=== PATIENT | male | born 1935 | race Caucasian/White ===

== ENCOUNTER 2016-08-20 19:12 | Inpatient (IN) | payer MEDICARE, OTHER ==
--- NOTE | 2016-08-20 19:14 | ED Physician Chart ---
Chief Complaint/HPI - Patient Information Date Seen:: 08/20/16 Time Seen:: 19:14 Chief Complaint:: agitation History of Present Illness:: 81-year-old male history of bipolar disorder, brought in from care facility with acute, constant, severe, agitation 2 days. Associated aggressive behavior towards staff and other patients. History limited by patient's underlying bipolar disorder History provided by caregiver and transfer sheet Historian:: Other Review:: Nurse's Note Reviewed, Transfer documents Reviewed Review of Systems - Review of Systems Other: Complete system review otherwise unremarkable except as noted in history of present illness. Past Medical History - Past Medical History Past Medical History: HTN, DM, Other (bipolar disorder, gastroesophageal reflux disease, long-term use of insulin, dysphagia, type 2 diabetes mellitus without complications, unspecified dementia with behavioral disturbances, difficulty walking, adult failure to thrive, schizophrenia, CK D stage III, hypertension, COPD,) Family History: None Social History: Non Smoker, No Alcohol, No Drug Use, Care Facility Surgical History: None Psychiatricy History: Schizophrenia, Bipolar Medication: Reviewed Family Medical History - Family Member Mother History Unknown: Yes Physical Exam - Physical Examination Other:: INITIAL VITAL SIGNS: Reviewed by me GENERAL: Alert and interactive. No acute distress HEAD: Head is normocephalic and atraumatic EYES: EOMI. PERRL. No scleral icterus. No conjunctival injection ENT: Moist mucous membranes. NECK: Supple. No masses. Full range of motion RESPIRATORY: No tachypnea. Clear breath sounds bilaterally. No wheezing, rales, or rhonchi CV: Regular rate and rhythm. No murmurs, rubs, or gallops ABDOMEN: Soft, non-distended, non-tender. No guarding. No rebound. No masses. EXTREMITIES: No deformity. No cyanosis. No edema. SKIN: Warm and dry. No obvious rashes. There are some small excoriations on the patient's left face. NEUROLOGIC: Alert and oriented. Face is symmetric. Speech is normal. Moves all extremities equally. Motor and sensory distally intact. ED Septic Shock - . Is Septic Shock (SBP<90, OR Lactate>4 mmol\L) present?: No Reassessment (Disposition) - Reassessment Reassessment:: Urine positive for methamphetamine metabolites. Unknown how the patient may be receiving methamphetamine. However this will be investigated further by inpatient team. Patient is medically cleared for admission to the geriatric psych unit Reassessment Condition:: Unchanged - Diagnosis Diagnosis:: Acute psychosis, NOS Diabetes mellitus type 2, insulin-dependent Hypertension Schizophrenia Bipolar disorder - Patient Disposition Discharge/Transfer:: Acute Care w/in this hosp Admitted to:: [facility] Admitting Medical Physician:: Jomar Stevenson Admitting Psych Physician:: Ashkan Velasquez Time:: 20:33 Condition at Disposition:: Stable
[2016-08-20 19:45] LABS: % BASOPHILS 0.4 % (0.0-2.0); % EOSINOPHILS 4.2 % (0.0-5.0); % MONOCYTES 8.8 % (2.0-10.0); % NEUTROPHILS 59.6 % (40.0-80.0); HEMATOCRIT 29.1 % (39.0-49.0); HEMOGLOBIN 9.8 gm/dL (12.6-17.4); MEAN CORPUSCULAR HEMOGLOBIN 29.5 pg (27.0-31.0); MEAN CORPUSCULAR HGB CONC 33.5 pg (28.0-36.0); MEAN PLATELET VOLUME 8.7 fl; NEUTROPHILE ABSOLUTE 5.2 Th/cmm (1.8-8.0); PLATELET COUNT 260 Th/cmm (150-400); RED BLOOD COUNT 3.31 Mil/cmm (3.80-5.80); RED CELL DISTRIBUTION WIDTH 13.5 % (11.5-20.0); WHITE BLOOD COUNT 8.8 Th/cmm (4.8-10.8)
[2016-08-20 20:00] LABS: ALKALINE PHOSPHATASE 80 U/L (34-104); ANION GAP 4.9 (7.0-16.0); BILIRUBIN,TOTAL 0.2 mg/dL (0.3-1.0); BUN - UREA NITROGEN 32 mg/dL (7-25); BUN/CREATININE RATIO 17.8; CALCIUM SERUM 8.7 mg/dL (8.6-10.3); CARBON DIOXIDE 26.5 mEq/L (21.0-31.0); CHLORIDE 101 mEq/L (98-107); CHOLESTEROL 108 mg/dL (<200); CREATININE - SERUM 1.8 mg/dL (0.7-1.3); GLUCOSE 267 mg/dL (70-105); POTASSIUM SERUM 4.4 mEq/L (3.5-5.1); SGOT 14 U/L (13-39); SGPT/ALT 11 U/L (7-52); SODIUM SERUM 128 mEq/L (136-145); TRIGLYCERIDES 139 mg/dL (<150)
[2016-08-20 20:05] LABS: ACETAMINOPHEN < 10.0 ug/mL (10.0-30.0)
[2016-08-20 20:19] LABS: URINE BILIRUBIN NEGATIVE (NEGATIVE); URINE BLOOD NEGATIVE (NEGATIVE); URINE COLOR YELLOW; URINE GLUCOSE (UA) NEGATIVE (NEGATIVE); URINE KETONE TRACE mg/dL (NEGATIVE); URINE PH 5.5; URINE PROTEIN 100 mg/dL (NEGATIVE); URINE RBC 0-1 /hpf (0-5); URINE UROBILINOGEN 0.2 E.U./dL (0.2 - 1.0)
[2016-08-20 20:20] LABS: URINE BACTERIA FEW /hpf (NONE SEEN); URINE EPITHELIAL CELLS FEW /lpf (FEW)
[2016-08-20 20:23] LABS: AMPHETAMINE URINE NEGATIVE (NEGATIVE); BARBITURATES URINE NEGATIVE (NEGATIVE); METHADONE URINE NEGATIVE (NEGATIVE)
[2016-08-20 21:20] VITALS: BP 114/63
[2016-08-21] MEDS ORDERED: Albuterol/Ipratropium Neb 3 ML AERS HHN PRN (00:15)
[2016-08-21] MEDS ORDERED: Magnesium Hydroxide (MOM) 30 mL UDC PO PRN (00:15)
[2016-08-21] MEDS: INSULIN ASPART SLIDING SCALE 100 UNITS/ML UNIT SUBQ SCH ×4 (06:38→20:49)
[2016-08-21] MEDS ORDERED: Non-Formulary Item 1 EA (Cranberry Fruit Concentrate [Cranberry] 450 MG) PO SCH (09:00)
[2016-08-21] MEDS ORDERED: Non-Formulary Item 1 EA (Lurasidone Hcl [Latuda] 40 MG) PO SCH (09:00)
[2016-08-21] MEDS ORDERED: Non-Formulary Item 1 EA (Albuterol Sulfate [Proair Respiclick] 90 MCG) IH SCH (09:00)
[2016-08-21] MEDS: Lactulose 10 Gm/15 mL 30mL UDC PO SCH ×2 (10:11→17:14)
[2016-08-21] MEDS: Dextromethorphan/Quinidine 20mg/10mg Cap PO SCH ×2 (10:12→17:14)
[2016-08-21] MEDS: Ferrous Sulfate 325 MG TAB PO SCH (10:12)
[2016-08-21] MEDS: Vitamin B Complex w/Vitamin C Tab PO SCH (10:12)
--- NOTE | 2016-08-21 15:46 | History and Physical ---
History of Present Illness - HPI Chief Complaint: agitation HPI: THIS IS A 81 YEAR OLD MALE RESIDENT OF [facility]. PATIENT IS ADMITTED TO THE GEROPSYCH UNIT FOR INCREASE IN AGITATION AND AGRESSIVE BEHAVIOR TOWARDS STAFF. Vital Signs: Last Vital Signs Temp 98 F 08/21/16 06:58 Pulse 66 08/21/16 08:22 Resp 18 08/21/16 07:44 BP 123/58 08/21/16 08:22 Pulse Ox 98 08/21/16 07:44 Past Medical History Cardiovascular: Report: HTN (COPD, ADULT FAILURE TO THRIVE, HTN, DM-2, DYSPHAGIA , UNSTEADY GAIT) Family Medical History - Family Member Mother History Unknown: Yes Ethnicity: Living Status: Hx Family Cancer: No Hx Family Coronary Artery Disease: No Hx Family Congestive Heart Failure: No Hx Family Hypertension: No Hx Family Stroke: No Hx Family Diabetes: Yes Hx Family Seizures: No Hx Family Dementia: No Hx Family AIDS: No Hx Family HIV: No Hx Family COPD: No Hx Family Hepatitis: No Hx Family Psychiatric Problems: No Hx Family Tuberculosis: No Social History Smoke: No Alcohol: None Drugs: None Lives: [facility] Home [facility] Maintenance Health Maintenance: Influenza Vaccine - Medications Home Medications: Home Medication Medication Instructions Recorded Type Acetaminophen [Tylenol] 650 mg PO Q4HR PRN 08/20/16 History Albuterol Sulfate [Proair 90 mcg IH BID 08/20/16 History Respiclick] Aspirin EC [Ecotrin] 81 mg PO DAILY 08/20/16 History Bisacodyl [Fleet Bisacodyl] 10 mg PO DAILY PRN 08/20/16 History Cholecalciferol (Vitamin D3) 1,000 iu PO DAILY 08/20/16 History [Vitamin D3] Cranberry Fruit Concentrate 450 mg PO DAILY 08/20/16 History [Cranberry] Dextromethorphan/Quinidine 1 cap PO BID 08/20/16 History [Nuedexta 20mg-10mg] Divalproex ER [Depakote ER] 500 mg PO DAILY 08/20/16 History Donepezil HCl [Aricept] 10 mg PO HS 08/20/16 History Famotidine 20 mg PO BID 08/20/16 History Fenofibrate Nanocrystallized 145 mg PO HS 08/20/16 History [Tricor] Ferrous Sulfate [Iron] 325 mg PO DAILY 08/20/16 History Folic Acid/Vit Bcomp,C 1 tab PO DAILY 08/20/16 History [Nephro-Neeraj Vitamin B and C Complex] Insulin Glargine, Recombinan 15 units SUBQ HS 08/20/16 History [Lantus] Ipratropium/Albuterol Sulfate 3 ml IH Q4HR PRN 08/20/16 History [Iprat-Albut 0.5-3(2.5) mg/3 ml] Lactulose [Cephulac] 30 ml PO BID 08/20/16 History Linagliptin [Tradjenta] 5 mg PO DAILY 08/20/16 History Lurasidone HCl [Latuda] 40 mg PO DAILY 08/20/16 History Magnesium Hydroxide [Milk of 30 ml PO HS PRN 08/20/16 History Magnesia] Melatonin 3 mg PO HS 08/20/16 History Memantine [Namenda] 10 mg PO BID 08/20/16 History Metoprolol Tartrate 50 mg PO DAILY 08/20/16 History amLODIPine Besylate [Norvasc*] 10 mg PO DAILY 08/20/16 History - Allergies Allergies/Adverse Reactions: Allergies Allergy/AdvReac Type Severity Reaction Status Date / Time rivaroxaban [From Xarelto] Allergy Verified 08/20/16 19:27 Review of Systems - Review of Systems Constitutional: Denies: No Significant, Fever Eyes: Report: No Significant ENT: Report: No Significant Respiratory: Denies: No Significant, Cough, Dry, Shortness of Breath Cardiovascular: Denies: Chest Pain, Palpitations Gastrointestinal: Denies: Nausea, Vomiting, Abdominal Pain, Diarrhea, Constipation Neurological: Report: Weakness Physical Exam - Physical Exam HEENT: Report: Ears Nose Throat within normal limits Neck: Report: Within normal limits Cardiovascular Systems: Report: +s1/s2 noted, Regular, Rate and Rhythm, no murmurs noted Respiratory: Report: Breath Sounds are within normal limits Abdomen: Report: Non-tender to palpation Back: Report: Inspection of back is within normal limits. Extremities: Report: Non-tender to palpation. Skin: Report: Warm Neuro/Psych: Report: A+Ox3, No new focal deficits, Weakness or sensory loss noted. - Lab Results All Lab Results last 24 hours: Laboratory Last Values WBC 8.8 Th/cmm (4.8-10.8) 08/20/16 19:36 RBC 3.31 Mil/cmm (3.80-5.80) L 08/20/16 19:36 Hgb 9.8 gm/dL (12.6-17.4) L 08/20/16 19:36 Hct 29.1 % (39.0-49.0) L 08/20/16 19:36 MCV 88.0 fl (80-99) 08/20/16 19:36 MCH 29.5 pg (27.0-31.0) 08/20/16 19:36 MCHC Differential 33.5 pg (28.0-36.0) 08/20/16 19:36 RDW 13.5 % (11.5-20.0) 08/20/16 19:36 Plt Count 260 Th/cmm (150-400) 08/20/16 19:36 MPV 8.7 fl 08/20/16 19:36 Neutrophils % 59.6 % (40.0-80.0) 08/20/16 19:36 Lymphocytes % 27.0 % (20.0-50.0) 08/20/16 19:36 Monocytes % 8.8 % (2.0-10.0) 08/20/16 19:36 Eosinophils % 4.2 % (0.0-5.0) 08/20/16 19:36 Basophils % 0.4 % (0.0-2.0) 08/20/16 19:36 Sodium 128 mEq/L (136-145) L 08/20/16 19:36 Potassium 4.4 mEq/L (3.5-5.1) 08/20/16 19:36 Chloride 101 mEq/L (98-107) 08/20/16 19:36 Carbon Dioxide 26.5 mEq/L (21.0-31.0) 08/20/16 19:36 Anion Gap 4.9 (7.0-16.0) L 08/20/16 19:36 BUN 32 mg/dL (7-25) H 08/20/16 19:36 Creatinine 1.8 mg/dL (0.7-1.3) H 08/20/16 19:36 Est GFR ( Amer) TNP 08/20/16 19:36 Est GFR (Non-Af Amer) TNP 08/20/16 19:36 BUN/Creatinine Ratio 17.8 08/20/16 19:36 Glucose 267 mg/dL (70-105) H 08/20/16 19:36 POC Glucose 129 MG/DL (70 - 105) H 08/21/16 12:08 Hemoglobin A1c % 7.5 % (4.0-6.0) H 08/20/16 19:36 Calcium 8.7 mg/dL (8.6-10.3) 08/20/16 19:36 Total Bilirubin 0.2 mg/dL (0.3-1.0) L 08/20/16 19:36 AST 14 U/L (13-39) 08/20/16 19:36 ALT 11 U/L (7-52) 08/20/16 19:36 Alkaline Phosphatase 80 U/L (34-104) 08/20/16 19:36 Total Protein 6.7 gm/dL (6.0-8.3) 08/20/16 19:36 Albumin 3.4 gm/dL (4.2-5.5) L 08/20/16 19:36 Globulin 3.3 gm/dL 08/20/16 19:36 Albumin/Globulin Ratio 1.0 (1.0-1.8) 08/20/16 19:36 Triglycerides 139 mg/dL (<150) 08/20/16 19:36 Cholesterol 108 mg/dL (<200) 08/20/16 19:36 LDL Cholesterol Direct 64 mg/dL (75-193) L 08/20/16 19:36 HDL Cholesterol 37 mg/dL (23-92) 08/20/16 19:36 TSH 1.57 uIU/ml (0.34-5.60) 08/20/16 19:36 Urine Source CLEAN C 08/20/16 20:00 Urine Color YELLOW 08/20/16 20:00 Urine Clarity CLEAR (CLEAR) 08/20/16 20:00 Urine pH 5.5 08/20/16 20:00 Ur Specific [place] 1.025 (1.005-1.030) 08/20/16 20:00 Urine Protein 100 mg/dL (NEGATIVE) H 08/20/16 20:00 Urine Glucose (UA) NEGATIVE mg/dL (NEGATIVE) 08/20/16 20:00 Urine Ketones TRACE mg/dL (NEGATIVE) 08/20/16 20:00 Urine Blood NEGATIVE (NEGATIVE) 08/20/16 20:00 Urine Nitrate NEGATIVE (NEGATIVE) 08/20/16 20:00 Urine Bilirubin NEGATIVE (NEGATIVE) 08/20/16 20:00 Urine Urobilinogen 0.2 E.U./dL (0.2 - 1.0) 08/20/16 20:00 Ur Leukocyte Esterase NEGATIVE (NEGATIVE) 08/20/16 20:00 Urine RBC 0-1 /hpf (0-5) 08/20/16 20:00 Urine WBC 2-5 /hpf (0-5) H 08/20/16 20:00 Ur Epithelial Cells FEW /lpf (FEW) 08/20/16 20:00 Urine Bacteria FEW /hpf (NONE SEEN) 08/20/16 20:00 Salicylates < 25.0 mg/L (30.0-100.0) L 08/20/16 19:36 Urine Opiates Screen NEGATIVE (NEGATIVE) 08/20/16 20:00 Urine Methadone Screen NEGATIVE (NEGATIVE) 08/20/16 20:00 Acetaminophen < 10.0 ug/mL (10.0-30.0) L 08/20/16 19:36 Ur Barbiturates Screen NEGATIVE (NEGATIVE) 08/20/16 20:00 Ur Tricyclics Screen NEGATIVE (NEGATIVE) 08/20/16 20:00 Ur Phencyclidine Scrn NEGATIVE (NEGATIVE) 08/20/16 20:00 Amphetamines Screen NEGATIVE (NEGATIVE) 08/20/16 20:00 U Methamphetamines Scrn POSITIVE (NEGATIVE) H 08/20/16 20:00 U Benzodiazepines Scrn POSITIVE (NEGATIVE) H 08/20/16 20:00 U Cocaine Metab Screen NEGATIVE (NEGATIVE) 08/20/16 20:00 U Cannabinoids Screen NEGATIVE (NEGATIVE) 08/20/16 20:00 Ethyl Alcohol < 10 mg/dL (0-10) 08/20/16 19:36 RPR NONREACTIVE (NONREACTIVE) 08/20/16 19:36 Laboratory Results - last 24 hr 08/21/16 08/21/16 06:27 12:08 POC Glucose 201 H 129 H - Assessment Assessment: HTN DM-2 DYSPHAGIA 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 AGITATION DEMENTIA COPD - Plan Plan: MONITOR GLUCOSE FALL PRECAUTIONS MONITOR BP CONTINUE CURRENT PLAN OF CARE
[2016-08-21] MEDS: Insulin Detemir 100 units/mL 10mL Vial SUBQ SCH (20:51)
[2016-08-21] MEDS ORDERED: Non-Formulary Item 1 EA (Fenofibrate Nanocrystallized [Tricor] 145 MG) PO SCH (21:00)
[2016-08-21] MEDS ORDERED: Non-Formulary Item 1 EA (Melatonin [Melatonin] 3 MG) PO SCH (21:00)
[2016-08-22] MEDS: INSULIN ASPART SLIDING SCALE 100 UNITS/ML UNIT SUBQ SCH ×4 (06:34→20:50)
[2016-08-22] MEDS: Albuterol Nebulizer 2.5mg/3mL HHN SCH (08:30)
[2016-08-22] MEDS: Lactulose 10 Gm/15 mL 30mL UDC PO SCH ×2 (08:34→17:36)
[2016-08-22] MEDS: Dextromethorphan/Quinidine 20mg/10mg Cap PO SCH ×2 (08:35→16:08)
[2016-08-22] MEDS: Ferrous Sulfate 325 MG TAB PO SCH (08:35)
[2016-08-22] MEDS: Vitamin B Complex w/Vitamin C Tab PO SCH (08:35)
[2016-08-22] MEDS: Insulin Detemir 100 units/mL 10mL Vial SUBQ SCH (20:53)
[2016-08-22] MEDS: Fenofibrate, Micronized 134 mg Cap PO SCH (20:55)
[2016-08-23] MEDS: Albuterol Nebulizer 2.5mg/3mL HHN SCH ×3 (07:32→18:41)
[2016-08-23] MEDS: Vitamin B Complex w/Vitamin C Tab PO SCH (09:07)
[2016-08-23] MEDS: Ferrous Sulfate 325 MG TAB PO SCH (09:07)
[2016-08-23] MEDS: Dextromethorphan/Quinidine 20mg/10mg Cap PO SCH ×2 (09:07→16:30)
--- NOTE | 2016-08-23 14:50 | Internal Medicine Prog Note ---
Internal Medicine Subjective - Subjective Service Date: 08/23/16 Patient seen and examined:: with staff Patient is:: awake Per staff patient has:: no adverse event Internal Medicine Objective - Results Result Diagrams: 08/20/16 19:36 08/20/16 19:36 Recent Labs: Laboratory Last Values WBC 8.8 Th/cmm (4.8-10.8) 08/20/16 19:36 RBC 3.31 Mil/cmm (3.80-5.80) L 08/20/16 19:36 Hgb 9.8 gm/dL (12.6-17.4) L 08/20/16 19:36 Hct 29.1 % (39.0-49.0) L 08/20/16 19:36 MCV 88.0 fl (80-99) 08/20/16 19:36 MCH 29.5 pg (27.0-31.0) 08/20/16 19:36 MCHC Differential 33.5 pg (28.0-36.0) 08/20/16 19:36 RDW 13.5 % (11.5-20.0) 08/20/16 19:36 Plt Count 260 Th/cmm (150-400) 08/20/16 19:36 MPV 8.7 fl 08/20/16 19:36 Neutrophils % 59.6 % (40.0-80.0) 08/20/16 19:36 Lymphocytes % 27.0 % (20.0-50.0) 08/20/16 19:36 Monocytes % 8.8 % (2.0-10.0) 08/20/16 19:36 Eosinophils % 4.2 % (0.0-5.0) 08/20/16 19:36 Basophils % 0.4 % (0.0-2.0) 08/20/16 19:36 Sodium 128 mEq/L (136-145) L 08/20/16 19:36 Potassium 4.4 mEq/L (3.5-5.1) 08/20/16 19:36 Chloride 101 mEq/L (98-107) 08/20/16 19:36 Carbon Dioxide 26.5 mEq/L (21.0-31.0) 08/20/16 19:36 Anion Gap 4.9 (7.0-16.0) L 08/20/16 19:36 BUN 32 mg/dL (7-25) H 08/20/16 19:36 Creatinine 1.8 mg/dL (0.7-1.3) H 08/20/16 19:36 Est GFR ( Amer) TNP 08/20/16 19:36 Est GFR (Non-Af Amer) TNP 08/20/16 19:36 BUN/Creatinine Ratio 17.8 08/20/16 19:36 Glucose 267 mg/dL (70-105) H 08/20/16 19:36 POC Glucose 128 MG/DL (70 - 105) H 08/23/16 12:06 Hemoglobin A1c % 7.5 % (4.0-6.0) H 08/20/16 19:36 Calcium 8.7 mg/dL (8.6-10.3) 08/20/16 19:36 Total Bilirubin 0.2 mg/dL (0.3-1.0) L 08/20/16 19:36 AST 14 U/L (13-39) 08/20/16 19:36 ALT 11 U/L (7-52) 08/20/16 19:36 Alkaline Phosphatase 80 U/L (34-104) 08/20/16 19:36 Total Protein 6.7 gm/dL (6.0-8.3) 08/20/16 19:36 Albumin 3.4 gm/dL (4.2-5.5) L 08/20/16 19:36 Globulin 3.3 gm/dL 08/20/16 19:36 Albumin/Globulin Ratio 1.0 (1.0-1.8) 08/20/16 19:36 Triglycerides 139 mg/dL (<150) 08/20/16 19:36 Cholesterol 108 mg/dL (<200) 08/20/16 19:36 LDL Cholesterol Direct 64 mg/dL (75-193) L 08/20/16 19:36 HDL Cholesterol 37 mg/dL (23-92) 08/20/16 19:36 TSH 1.57 uIU/ml (0.34-5.60) 08/20/16 19:36 Urine Source CLEAN C 08/20/16 20:00 Urine Color YELLOW 08/20/16 20:00 Urine Clarity CLEAR (CLEAR) 08/20/16 20:00 Urine pH 5.5 08/20/16 20:00 Ur Specific [place] 1.025 (1.005-1.030) 08/20/16 20:00 Urine Protein 100 mg/dL (NEGATIVE) H 08/20/16 20:00 Urine Glucose (UA) NEGATIVE mg/dL (NEGATIVE) 08/20/16 20:00 Urine Ketones TRACE mg/dL (NEGATIVE) 08/20/16 20:00 Urine Blood NEGATIVE (NEGATIVE) 08/20/16 20:00 Urine Nitrate NEGATIVE (NEGATIVE) 08/20/16 20:00 Urine Bilirubin NEGATIVE (NEGATIVE) 08/20/16 20:00 Urine Urobilinogen 0.2 E.U./dL (0.2 - 1.0) 08/20/16 20:00 Ur Leukocyte Esterase NEGATIVE (NEGATIVE) 08/20/16 20:00 Urine RBC 0-1 /hpf (0-5) 08/20/16 20:00 Urine WBC 2-5 /hpf (0-5) H 08/20/16 20:00 Ur Epithelial Cells FEW /lpf (FEW) 08/20/16 20:00 Urine Bacteria FEW /hpf (NONE SEEN) 08/20/16 20:00 Salicylates < 25.0 mg/L (30.0-100.0) L 08/20/16 19:36 Urine Opiates Screen NEGATIVE (NEGATIVE) 08/20/16 20:00 Urine Methadone Screen NEGATIVE (NEGATIVE) 08/20/16 20:00 Acetaminophen < 10.0 ug/mL (10.0-30.0) L 08/20/16 19:36 Ur Barbiturates Screen NEGATIVE (NEGATIVE) 08/20/16 20:00 Ur Tricyclics Screen NEGATIVE (NEGATIVE) 08/20/16 20:00 Ur Phencyclidine Scrn NEGATIVE (NEGATIVE) 08/20/16 20:00 Amphetamines Screen NEGATIVE (NEGATIVE) 08/20/16 20:00 U Methamphetamines Scrn POSITIVE (NEGATIVE) H 08/20/16 20:00 U Benzodiazepines Scrn POSITIVE (NEGATIVE) H 08/20/16 20:00 U Cocaine Metab Screen NEGATIVE (NEGATIVE) 08/20/16 20:00 U Cannabinoids Screen NEGATIVE (NEGATIVE) 08/20/16 20:00 Ethyl Alcohol < 10 mg/dL (0-10) 08/20/16 19:36 RPR NONREACTIVE (NONREACTIVE) 08/20/16 19:36 - Physical Exam Vitals and I&O: Vital Signs Temp 98.2 F 08/23/16 06:00 Pulse 109 08/23/16 09:07 Resp 19 08/23/16 06:00 BP 149/65 08/23/16 09:07 Pulse Ox 96 08/23/16 06:00 Intake & Output 08/22/16 08/23/16 08/23/16 18:59 06:59 18:59 Intake Total 1000 120 Balance 1000 120 Intake: Oral 1000 120 Other: # Voids 4 2 # Bowel Movements 1 0 Active Medications: Current Medications Acetaminophen (Tylenol) 650 mg PO Q4HR PRN PRN Reason: MILD PAINAND TEMP >101F Stop: 10/20/16 00:14 Last Admin: 08/21/16 14:53 Dose: 650 mg Albuterol Sulfate (Albuterol 2.5mg/3ml Neb Ud) 2.5 mg HHN BID [facility] Stop: 10/21/16 08:59 Last Admin: 08/23/16 07:33 Dose: Not Given Albuterol/Ipratropium (Duoneb Neb) 3 ml HHN Q4HR PRN PRN Reason: Shortness of Breath or Wheeze Stop: 10/20/16 00:14 Amlodipine Besylate (Norvasc) 10 mg PO DAILY [facility] Stop: 10/20/16 08:59 Last Admin: 08/23/16 09:07 Dose: 10 mg Aspirin (Ecotrin) 81 mg PO DAILY [facility] Stop: 10/20/16 08:59 Last Admin: 08/23/16 09:07 Dose: 81 mg Bisacodyl (Dulcolax 5 Mg Ec Tab) 10 mg PO DAILY PRN PRN Reason: Constipation Stop: 10/20/16 00:14 Cholecalciferol (Vitamin D3) 1,000 iu PO DAILY [facility] Stop: 10/20/16 08:59 Last Admin: 08/23/16 09:07 Dose: 1,000 iu Dextromethorphan/Quinidine (Nuedexta 20mg-10mg) 1 cap PO BID [facility] Stop: 10/20/16 08:59 Last Admin: 08/23/16 09:07 Dose: 1 cap Divalproex Sodium (Depakote Sprinkle) 500 mg PO DAILY [facility] PRN Reason: Protocol Stop: 10/22/16 08:59 Last Admin: 08/23/16 09:07 Dose: 500 mg Donepezil HCl (Aricept) 10 mg PO HS [facility] Stop: 10/20/16 20:59 Last Admin: 08/22/16 20:55 Dose: 10 mg Famotidine (Pepcid) 20 mg PO BID [facility] Stop: 10/20/16 08:59 Last Admin: 08/23/16 09:07 Dose: 20 mg Fenofibrate (Tricor) 134 mg PO HS [facility] Stop: 10/21/16 20:59 Last Admin: 08/22/16 20:55 Dose: 134 mg Ferrous Sulfate (Iron) 325 mg PO DAILY [facility] Stop: 10/20/16 08:59 Last Admin: 08/23/16 09:07 Dose: 325 mg Insulin Aspart (Novolog Insulin Sliding Scale) 0 units SUBQ ACHS [facility] PRN Reason: Protocol Stop: 10/20/16 07:29 Last Admin: 08/22/16 20:50 Dose: 4 units Insulin Detemir (Levemir Insulin) 15 units SUBQ HS [facility] Stop: 10/20/16 20:59 Last Admin: 08/22/16 20:53 Dose: 15 units Lactulose (Cephulac) 20 gm PO BID [facility] Stop: 10/20/16 08:59 Last Admin: 08/22/16 17:36 Dose: Not Given Lorazepam (Ativan) 1 mg PO Q6HR PRN; Protocol PRN Reason: Anxiety Stop: 10/22/16 14:28 Magnesium Hydroxide (Milk Of Magnesia) 30 ml PO HS PRN PRN Reason: Constipation Stop: 10/20/16 00:14 Memantine (Namenda) 10 mg PO BID [facility] Stop: 10/20/16 08:59 Last Admin: 08/23/16 09:07 Dose: 10 mg Metoprolol Tartrate (Lopressor) 50 mg PO DAILY [facility] Stop: 10/20/16 08:59 Last Admin: 08/23/16 09:07 Dose: 50 mg Risperidone (Risperdal) 2 mg PO HS [facility] PRN Reason: Protocol Stop: 10/21/16 20:59 Risperidone (Risperdal) 1 mg PO DAILY [facility] PRN Reason: Protocol Stop: 10/23/16 08:59 Vitamin B Complex/Vit C/Folic Acid (Vitamin B Complex W/Vitamin C) 1 tab PO DAILY [facility] Stop: 10/20/16 08:59 Last Admin: 08/23/16 09:07 Dose: 1 tab Zolpidem Tartrate (Ambien) 5 mg PO HS PRN PRN Reason: Insomnia Stop: 10/19/16 21:21 Last Admin: 08/21/16 00:41 Dose: 5 mg General: alert HEENT: NC/AT, PERRLA Neck: Supple Lungs: CTAB Cardiovascular: RRR, Normal S1, Normal S2, without murmur Abdomen: soft, non-tender, non-distended Extremities: clear Neurological: no change Internal Medicine Assmt/Plan - Assessment Assessment: HTN DM-2 DYSPHAGIA 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 AGITATION DEMENTIA COPD - Plan Plan: MONITOR GLUCOSE FALL PRECAUTIONS MONITOR BP CONTINUE CURRENT PLAN OF CARE Nutritional Asmnt/Malnutr-PDOC - Dietary Evaluation Malnutrition Findings (Please click <Entered> for more info): Nutritional Asmnt/Malnutrition Start: 08/22/16 15: 48 Text: Status: Complete Freq: Document 08/22/16 15:48 GSUN (Rec: 08/22/16 15:59 GSUN [id number]) Nutritional Asmnt/Malnutrition Patient General Information Nutritional Screening High Risk Screening Diagnosis Reason for visit: psychosis NOS Pertinent Medical Hx/Surgical Hx HTN, COPD, adult FTT, HTN, DM2 , dysphagia, unsteady gait Subjective Information 81 year old male from SNF. Pt seen asleep in kyler chair in rec room, unable to be woken up. Per nursing staff, pt is confused. Spoke to FASTENER SEWING MACHINE OPERATOR in rec room, FASTENER SEWING MACHINE OPERATOR stated pt is asleep as pt has just recievd medications, otherwise pt noted with good appetite and no nutritional concerns at this time. Pt appeared nourisehd for age, no severe wasting noted. Avg PO intake 75-100% of meals since adm. 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 Current %PO Good (75-100%) Estimated Nutritional Goals BEE in Kcals: Using Current wt Calories/Kcals/Kg CBW 155lb/70.5kg Kcals Calculated 1763-2115kcal (25-30kcal/kg) Protein: Using Current wt Protein Calculated 71g (1g/kg) Fluid: ml 1763-2115ml (1ml/kcal) Nutritional Problem 1. Problem Problem Altered nutrition related laboratory values related to Etiology DM aeb Signs/Symptoms: A1c 7.5, glucose 267 on adm Intervention/Recommendation Comments 1. Recommend [id number] CHRIS. 2. Avg PO intake is adequate. Expected Outcomes/Goals Expected Outcomes/Goals 1. PO intake continue to meet at least 75% of estimated nutritional needs.
[2016-08-23] MEDS: INSULIN ASPART SLIDING SCALE 100 UNITS/ML UNIT SUBQ SCH ×3 (16:29→20:39)
[2016-08-23] MEDS: Lactulose 10 Gm/15 mL 30mL UDC PO SCH (16:30)
[2016-08-23] MEDS: Fenofibrate, Micronized 134 mg Cap PO SCH (20:19)
[2016-08-23] MEDS: Insulin Detemir 100 units/mL 10mL Vial SUBQ SCH (20:22)
[2016-08-24] MEDS: INSULIN ASPART SLIDING SCALE 100 UNITS/ML UNIT SUBQ SCH ×4 (07:30→21:18)
[2016-08-24] MEDS: Albuterol Nebulizer 2.5mg/3mL HHN SCH ×2 (08:10→20:29)
[2016-08-24] MEDS: Lactulose 10 Gm/15 mL 30mL UDC PO SCH ×2 (08:27→16:34)
[2016-08-24] MEDS: Ferrous Sulfate 325 MG TAB PO SCH (08:27)
[2016-08-24] MEDS: Dextromethorphan/Quinidine 20mg/10mg Cap PO SCH ×2 (08:27→16:34)
[2016-08-24] MEDS: Vitamin B Complex w/Vitamin C Tab PO SCH (08:28)
--- NOTE | 2016-08-24 12:52 | Internal Medicine Prog Note ---
Internal Medicine Subjective - Subjective Service Date: 08/24/16 Patient is:: awake Per staff patient has:: no adverse event Internal Medicine Objective - Results Result Diagrams: 08/20/16 19:36 08/20/16 19:36 Recent Labs: Laboratory Last Values WBC 8.8 Th/cmm (4.8-10.8) 08/20/16 19:36 RBC 3.31 Mil/cmm (3.80-5.80) L 08/20/16 19:36 Hgb 9.8 gm/dL (12.6-17.4) L 08/20/16 19:36 Hct 29.1 % (39.0-49.0) L 08/20/16 19:36 MCV 88.0 fl (80-99) 08/20/16 19:36 MCH 29.5 pg (27.0-31.0) 08/20/16 19:36 MCHC Differential 33.5 pg (28.0-36.0) 08/20/16 19:36 RDW 13.5 % (11.5-20.0) 08/20/16 19:36 Plt Count 260 Th/cmm (150-400) 08/20/16 19:36 MPV 8.7 fl 08/20/16 19:36 Neutrophils % 59.6 % (40.0-80.0) 08/20/16 19:36 Lymphocytes % 27.0 % (20.0-50.0) 08/20/16 19:36 Monocytes % 8.8 % (2.0-10.0) 08/20/16 19:36 Eosinophils % 4.2 % (0.0-5.0) 08/20/16 19:36 Basophils % 0.4 % (0.0-2.0) 08/20/16 19:36 Sodium 128 mEq/L (136-145) L 08/20/16 19:36 Potassium 4.4 mEq/L (3.5-5.1) 08/20/16 19:36 Chloride 101 mEq/L (98-107) 08/20/16 19:36 Carbon Dioxide 26.5 mEq/L (21.0-31.0) 08/20/16 19:36 Anion Gap 4.9 (7.0-16.0) L 08/20/16 19:36 BUN 32 mg/dL (7-25) H 08/20/16 19:36 Creatinine 1.8 mg/dL (0.7-1.3) H 08/20/16 19:36 Est GFR ( Amer) TNP 08/20/16 19:36 Est GFR (Non-Af Amer) TNP 08/20/16 19:36 BUN/Creatinine Ratio 17.8 08/20/16 19:36 Glucose 267 mg/dL (70-105) H 08/20/16 19:36 POC Glucose 75 MG/DL (70 - 105) 08/24/16 06:24 Hemoglobin A1c % 7.5 % (4.0-6.0) H 08/20/16 19:36 Calcium 8.7 mg/dL (8.6-10.3) 08/20/16 19:36 Total Bilirubin 0.2 mg/dL (0.3-1.0) L 08/20/16 19:36 AST 14 U/L (13-39) 08/20/16 19:36 ALT 11 U/L (7-52) 08/20/16 19:36 Alkaline Phosphatase 80 U/L (34-104) 08/20/16 19:36 Total Protein 6.7 gm/dL (6.0-8.3) 08/20/16 19:36 Albumin 3.4 gm/dL (4.2-5.5) L 08/20/16 19:36 Globulin 3.3 gm/dL 08/20/16 19:36 Albumin/Globulin Ratio 1.0 (1.0-1.8) 08/20/16 19:36 Triglycerides 139 mg/dL (<150) 08/20/16 19:36 Cholesterol 108 mg/dL (<200) 08/20/16 19:36 LDL Cholesterol Direct 64 mg/dL (75-193) L 08/20/16 19:36 HDL Cholesterol 37 mg/dL (23-92) 08/20/16 19:36 TSH 1.57 uIU/ml (0.34-5.60) 08/20/16 19:36 Urine Source CLEAN C 08/20/16 20:00 Urine Color YELLOW 08/20/16 20:00 Urine Clarity CLEAR (CLEAR) 08/20/16 20:00 Urine pH 5.5 08/20/16 20:00 Ur Specific [place] 1.025 (1.005-1.030) 08/20/16 20:00 Urine Protein 100 mg/dL (NEGATIVE) H 08/20/16 20:00 Urine Glucose (UA) NEGATIVE mg/dL (NEGATIVE) 08/20/16 20:00 Urine Ketones TRACE mg/dL (NEGATIVE) 08/20/16 20:00 Urine Blood NEGATIVE (NEGATIVE) 08/20/16 20:00 Urine Nitrate NEGATIVE (NEGATIVE) 08/20/16 20:00 Urine Bilirubin NEGATIVE (NEGATIVE) 08/20/16 20:00 Urine Urobilinogen 0.2 E.U./dL (0.2 - 1.0) 08/20/16 20:00 Ur Leukocyte Esterase NEGATIVE (NEGATIVE) 08/20/16 20:00 Urine RBC 0-1 /hpf (0-5) 08/20/16 20:00 Urine WBC 2-5 /hpf (0-5) H 08/20/16 20:00 Ur Epithelial Cells FEW /lpf (FEW) 08/20/16 20:00 Urine Bacteria FEW /hpf (NONE SEEN) 08/20/16 20:00 Salicylates < 25.0 mg/L (30.0-100.0) L 08/20/16 19:36 Urine Opiates Screen NEGATIVE (NEGATIVE) 08/20/16 20:00 Urine Methadone Screen NEGATIVE (NEGATIVE) 08/20/16 20:00 Acetaminophen < 10.0 ug/mL (10.0-30.0) L 08/20/16 19:36 Ur Barbiturates Screen NEGATIVE (NEGATIVE) 08/20/16 20:00 Ur Tricyclics Screen NEGATIVE (NEGATIVE) 08/20/16 20:00 Ur Phencyclidine Scrn NEGATIVE (NEGATIVE) 08/20/16 20:00 Amphetamines Screen NEGATIVE (NEGATIVE) 08/20/16 20:00 U Methamphetamines Scrn POSITIVE (NEGATIVE) H 08/20/16 20:00 U Benzodiazepines Scrn POSITIVE (NEGATIVE) H 08/20/16 20:00 U Cocaine Metab Screen NEGATIVE (NEGATIVE) 08/20/16 20:00 U Cannabinoids Screen NEGATIVE (NEGATIVE) 08/20/16 20:00 Ethyl Alcohol < 10 mg/dL (0-10) 08/20/16 19:36 RPR NONREACTIVE (NONREACTIVE) 08/20/16 19:36 - Physical Exam Vitals and I&O: Vital Signs Temp 98.0 F 08/24/16 05:53 Pulse 70 08/24/16 08:28 Resp 20 08/24/16 08:11 BP 153/85 08/24/16 08:28 Pulse Ox 100 08/24/16 08:11 Intake & Output 08/23/16 08/24/16 08/24/16 18:59 06:59 18:59 Intake Total 950 80 Balance 950 80 Intake: Oral 950 80 Other: # Voids 4 2 # Bowel Movements 1 0 Active Medications: Current Medications Acetaminophen (Tylenol) 650 mg PO Q4HR PRN PRN Reason: MILD PAINAND TEMP >101F Stop: 10/20/16 00:14 Last Admin: 08/21/16 14:53 Dose: 650 mg Albuterol Sulfate (Albuterol 2.5mg/3ml Neb Ud) 2.5 mg HHN BID [facility] Stop: 10/21/16 08:59 Last Admin: 08/24/16 08:10 Dose: 2.5 mg Albuterol/Ipratropium (Duoneb Neb) 3 ml HHN Q4HR PRN PRN Reason: Shortness of Breath or Wheeze Stop: 10/20/16 00:14 Amlodipine Besylate (Norvasc) 10 mg PO DAILY [facility] Stop: 10/20/16 08:59 Last Admin: 08/24/16 08:28 Dose: 10 mg Aspirin (Ecotrin) 81 mg PO DAILY [facility] Stop: 10/20/16 08:59 Last Admin: 08/24/16 08:27 Dose: 81 mg Bisacodyl (Dulcolax 5 Mg Ec Tab) 10 mg PO DAILY PRN PRN Reason: Constipation Stop: 10/20/16 00:14 Cholecalciferol (Vitamin D3) 1,000 iu PO DAILY [facility] Stop: 10/20/16 08:59 Last Admin: 08/24/16 08:27 Dose: 1,000 iu Dextromethorphan/Quinidine (Nuedexta 20mg-10mg) 1 cap PO BID [facility] Stop: 10/20/16 08:59 Last Admin: 08/24/16 08:27 Dose: 1 cap Divalproex Sodium (Depakote Sprinkle) 500 mg PO DAILY [facility] PRN Reason: Protocol Stop: 10/22/16 08:59 Last Admin: 08/24/16 08:27 Dose: 500 mg Donepezil HCl (Aricept) 10 mg PO HS [facility] Stop: 10/20/16 20:59 Last Admin: 08/23/16 20:19 Dose: 10 mg Famotidine (Pepcid) 20 mg PO BID [facility] Stop: 10/20/16 08:59 Last Admin: 08/24/16 08:28 Dose: 20 mg Fenofibrate (Tricor) 134 mg PO HS [facility] Stop: 10/21/16 20:59 Last Admin: 08/23/16 20:19 Dose: 134 mg Ferrous Sulfate (Iron) 325 mg PO DAILY [facility] Stop: 10/20/16 08:59 Last Admin: 08/24/16 08:27 Dose: 325 mg Insulin Aspart (Novolog Insulin Sliding Scale) 0 units SUBQ ACHS [facility] PRN Reason: Protocol Stop: 10/20/16 07:29 Last Admin: 08/24/16 11:26 Dose: Not Given Insulin Detemir (Levemir Insulin) 15 units SUBQ HS [facility] Stop: 10/20/16 20:59 Last Admin: 08/23/16 20:22 Dose: 15 units Lactulose (Cephulac) 20 gm PO BID [facility] Stop: 10/20/16 08:59 Last Admin: 08/24/16 08:27 Dose: 20 gm Lorazepam (Ativan) 1 mg PO Q6H PRN; Protocol PRN Reason: Anxiety Stop: 10/22/16 14:28 Last Admin: 08/23/16 18:00 Dose: 1 mg Magnesium Hydroxide (Milk Of Magnesia) 30 ml PO HS PRN PRN Reason: Constipation Stop: 10/20/16 00:14 Memantine (Namenda) 10 mg PO BID [facility] Stop: 10/20/16 08:59 Last Admin: 08/24/16 08:28 Dose: 10 mg Metoprolol Tartrate (Lopressor) 50 mg PO DAILY [facility] Stop: 10/20/16 08:59 Last Admin: 08/24/16 08:28 Dose: 50 mg Risperidone (Risperdal) 2 mg PO HS [facility] PRN Reason: Protocol Stop: 10/23/16 20:59 Risperidone (Risperdal) 1 mg PO DAILY [facility] PRN Reason: Protocol Stop: 10/23/16 08:59 Last Admin: 08/24/16 08:27 Dose: 1 mg Vitamin B Complex/Vit C/Folic Acid (Vitamin B Complex W/Vitamin C) 1 tab PO DAILY [facility] Stop: 10/20/16 08:59 Last Admin: 08/24/16 08:28 Dose: 1 tab Zolpidem Tartrate (Ambien) 5 mg PO HS PRN PRN Reason: Insomnia Stop: 10/19/16 21:21 Last Admin: 08/21/16 00:41 Dose: 5 mg General: alert HEENT: NC/AT, PERRLA Neck: Supple Lungs: CTAB Cardiovascular: RRR, Normal S1, Normal S2, without murmur Abdomen: soft, non-tender, non-distended Extremities: clear Neurological: no change Internal Medicine Assmt/Plan - Assessment Assessment: HTN DM-2 DYSPHAGIA 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 AGITATION DEMENTIA COPD - Plan Plan: MONITOR GLUCOSE FALL PRECAUTIONS MONITOR BP CONTINUE CURRENT PLAN OF CARE Nutritional Asmnt/Malnutr-PDOC - Dietary Evaluation Malnutrition Findings (Please click <Entered> for more info): Nutritional Asmnt/Malnutrition Start: 08/22/16 15: 48 Text: Status: Complete Freq: Document 08/22/16 15:48 GSUN (Rec: 08/22/16 15:59 GSUN [id number]) Nutritional Asmnt/Malnutrition Patient General Information Nutritional Screening High Risk Screening Diagnosis Reason for visit: psychosis NOS Pertinent Medical Hx/Surgical Hx HTN, COPD, adult FTT, HTN, DM2 , dysphagia, unsteady gait Subjective Information 81 year old male from SNF. Pt seen asleep in kyler chair in rec room, unable to be woken up. Per nursing staff, pt is confused. Spoke to ASSISTANT MEDIA BUYER in rec room, ASSISTANT MEDIA BUYER stated pt is asleep as pt has just recievd medications, otherwise pt noted with good appetite and no nutritional concerns at this time. Pt appeared nourisehd for age, no severe wasting noted. Avg PO intake 75-100% of meals since adm. Current Diet Order/ Nutrition Support [id number] Pertinent Medications Dulcolax, Vitamin D3, Iron, Novolog, Levemir, Cephulac, MOM, Vitamin B Complex W/ Vitamin C Pertinent Labs 08/20: BUN 32H, creatinine 1.8H , glucose 267H, A1c 7.5H POC glucose 103-201 since adm Nutritional Hx/Data Height 5 ft 6 in Height (Calculated Centimeters) 167.6 Current Weight (lbs) 155 lb Weight (Calculated Kilograms) 70.3 Weight (Calculated Grams) 57699.8 [place] Body Weight 142 Weight Status Approriate GI Symptoms Usual diet at home [facility] soft, CHRIS, CCHO Skin Integrity/Comment: Ronald Toribio. 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 Current %PO Good (75-100%) Estimated Nutritional Goals BEE in Kcals: Using Current wt Calories/Kcals/Kg CBW 155lb/70.5kg Kcals Calculated 1763-2115kcal (25-30kcal/kg) Protein: Using Current wt Protein Calculated 71g (1g/kg) Fluid: ml 1763-2115ml (1ml/kcal) Nutritional Problem 1. Problem Problem Altered nutrition related laboratory values related to Etiology DM aeb Signs/Symptoms: A1c 7.5, glucose 267 on adm Intervention/Recommendation Comments 1. Recommend [id number] CHRIS. 2. Avg PO intake is adequate. Expected Outcomes/Goals Expected Outcomes/Goals 1. PO intake continue to meet at least 75% of estimated nutritional needs.
[2016-08-24] MEDS: Insulin Detemir 100 units/mL 10mL Vial SUBQ SCH (21:19)
[2016-08-24] MEDS: Fenofibrate, Micronized 134 mg Cap PO SCH (21:21)
[2016-08-25] MEDS: INSULIN ASPART SLIDING SCALE 100 UNITS/ML UNIT SUBQ SCH ×4 (06:45→20:35)
[2016-08-25] MEDS: Vitamin B Complex w/Vitamin C Tab PO SCH (08:32)
[2016-08-25] MEDS: Lactulose 10 Gm/15 mL 30mL UDC PO SCH ×2 (08:32→16:56)
[2016-08-25] MEDS: Dextromethorphan/Quinidine 20mg/10mg Cap PO SCH ×2 (08:34→16:56)
[2016-08-25] MEDS: Ferrous Sulfate 325 MG TAB PO SCH (08:34)
--- NOTE | 2016-08-25 12:29 | Internal Medicine Prog Note ---
Internal Medicine Subjective - Subjective Service Date: 08/25/16 Patient is:: awake Per staff patient has:: no adverse event Internal Medicine Objective - Results Result Diagrams: 08/20/16 19:36 08/20/16 19:36 Recent Labs: Laboratory Last Values WBC 8.8 Th/cmm (4.8-10.8) 08/20/16 19:36 RBC 3.31 Mil/cmm (3.80-5.80) L 08/20/16 19:36 Hgb 9.8 gm/dL (12.6-17.4) L 08/20/16 19:36 Hct 29.1 % (39.0-49.0) L 08/20/16 19:36 MCV 88.0 fl (80-99) 08/20/16 19:36 MCH 29.5 pg (27.0-31.0) 08/20/16 19:36 MCHC Differential 33.5 pg (28.0-36.0) 08/20/16 19:36 RDW 13.5 % (11.5-20.0) 08/20/16 19:36 Plt Count 260 Th/cmm (150-400) 08/20/16 19:36 MPV 8.7 fl 08/20/16 19:36 Neutrophils % 59.6 % (40.0-80.0) 08/20/16 19:36 Lymphocytes % 27.0 % (20.0-50.0) 08/20/16 19:36 Monocytes % 8.8 % (2.0-10.0) 08/20/16 19:36 Eosinophils % 4.2 % (0.0-5.0) 08/20/16 19:36 Basophils % 0.4 % (0.0-2.0) 08/20/16 19:36 Sodium 128 mEq/L (136-145) L 08/20/16 19:36 Potassium 4.4 mEq/L (3.5-5.1) 08/20/16 19:36 Chloride 101 mEq/L (98-107) 08/20/16 19:36 Carbon Dioxide 26.5 mEq/L (21.0-31.0) 08/20/16 19:36 Anion Gap 4.9 (7.0-16.0) L 08/20/16 19:36 BUN 32 mg/dL (7-25) H 08/20/16 19:36 Creatinine 1.8 mg/dL (0.7-1.3) H 08/20/16 19:36 Est GFR ( Amer) TNP 08/20/16 19:36 Est GFR (Non-Af Amer) TNP 08/20/16 19:36 BUN/Creatinine Ratio 17.8 08/20/16 19:36 Glucose 267 mg/dL (70-105) H 08/20/16 19:36 POC Glucose 134 MG/DL (70 - 105) H 08/25/16 11:34 Hemoglobin A1c % 7.5 % (4.0-6.0) H 08/20/16 19:36 Calcium 8.7 mg/dL (8.6-10.3) 08/20/16 19:36 Total Bilirubin 0.2 mg/dL (0.3-1.0) L 08/20/16 19:36 AST 14 U/L (13-39) 08/20/16 19:36 ALT 11 U/L (7-52) 08/20/16 19:36 Alkaline Phosphatase 80 U/L (34-104) 08/20/16 19:36 Total Protein 6.7 gm/dL (6.0-8.3) 08/20/16 19:36 Albumin 3.4 gm/dL (4.2-5.5) L 08/20/16 19:36 Globulin 3.3 gm/dL 08/20/16 19:36 Albumin/Globulin Ratio 1.0 (1.0-1.8) 08/20/16 19:36 Triglycerides 139 mg/dL (<150) 08/20/16 19:36 Cholesterol 108 mg/dL (<200) 08/20/16 19:36 LDL Cholesterol Direct 64 mg/dL (75-193) L 08/20/16 19:36 HDL Cholesterol 37 mg/dL (23-92) 08/20/16 19:36 TSH 1.57 uIU/ml (0.34-5.60) 08/20/16 19:36 Urine Source CLEAN C 08/20/16 20:00 Urine Color YELLOW 08/20/16 20:00 Urine Clarity CLEAR (CLEAR) 08/20/16 20:00 Urine pH 5.5 08/20/16 20:00 Ur Specific [place] 1.025 (1.005-1.030) 08/20/16 20:00 Urine Protein 100 mg/dL (NEGATIVE) H 08/20/16 20:00 Urine Glucose (UA) NEGATIVE mg/dL (NEGATIVE) 08/20/16 20:00 Urine Ketones TRACE mg/dL (NEGATIVE) 08/20/16 20:00 Urine Blood NEGATIVE (NEGATIVE) 08/20/16 20:00 Urine Nitrate NEGATIVE (NEGATIVE) 08/20/16 20:00 Urine Bilirubin NEGATIVE (NEGATIVE) 08/20/16 20:00 Urine Urobilinogen 0.2 E.U./dL (0.2 - 1.0) 08/20/16 20:00 Ur Leukocyte Esterase NEGATIVE (NEGATIVE) 08/20/16 20:00 Urine RBC 0-1 /hpf (0-5) 08/20/16 20:00 Urine WBC 2-5 /hpf (0-5) H 08/20/16 20:00 Ur Epithelial Cells FEW /lpf (FEW) 08/20/16 20:00 Urine Bacteria FEW /hpf (NONE SEEN) 08/20/16 20:00 Salicylates < 25.0 mg/L (30.0-100.0) L 08/20/16 19:36 Urine Opiates Screen NEGATIVE (NEGATIVE) 08/20/16 20:00 Urine Methadone Screen NEGATIVE (NEGATIVE) 08/20/16 20:00 Acetaminophen < 10.0 ug/mL (10.0-30.0) L 08/20/16 19:36 Ur Barbiturates Screen NEGATIVE (NEGATIVE) 08/20/16 20:00 Ur Tricyclics Screen NEGATIVE (NEGATIVE) 08/20/16 20:00 Ur Phencyclidine Scrn NEGATIVE (NEGATIVE) 08/20/16 20:00 Amphetamines Screen NEGATIVE (NEGATIVE) 08/20/16 20:00 U Methamphetamines Scrn POSITIVE (NEGATIVE) H 08/20/16 20:00 U Benzodiazepines Scrn POSITIVE (NEGATIVE) H 08/20/16 20:00 U Cocaine Metab Screen NEGATIVE (NEGATIVE) 08/20/16 20:00 U Cannabinoids Screen NEGATIVE (NEGATIVE) 08/20/16 20:00 Ethyl Alcohol < 10 mg/dL (0-10) 08/20/16 19:36 RPR NONREACTIVE (NONREACTIVE) 08/20/16 19:36 - Physical Exam Vitals and I&O: Vital Signs Temp 97.6 F 08/25/16 07:14 Pulse 68 08/25/16 08:33 Resp 18 08/25/16 07:14 BP 152/70 08/25/16 08:33 Pulse Ox 97 08/25/16 07:14 Intake & Output 08/24/16 08/25/16 08/25/16 18:59 06:59 18:59 Intake Total 1200 Balance 1200 Intake: Oral 1200 Other: # Voids 2 # Bowel Movements 1 Active Medications: Current Medications Acetaminophen (Tylenol) 650 mg PO Q4HR PRN PRN Reason: MILD PAINAND TEMP >101F Stop: 10/20/16 00:14 Last Admin: 08/21/16 14:53 Dose: 650 mg Albuterol Sulfate (Albuterol 2.5mg/3ml Neb Ud) 2.5 mg HHN BID [facility] Stop: 10/21/16 08:59 Last Admin: 08/24/16 20:29 Dose: 2.5 mg Albuterol/Ipratropium (Duoneb Neb) 3 ml HHN Q4HR PRN PRN Reason: Shortness of Breath or Wheeze Stop: 10/20/16 00:14 Amlodipine Besylate (Norvasc) 10 mg PO DAILY [facility] Stop: 10/20/16 08:59 Last Admin: 08/25/16 08:33 Dose: 10 mg Aspirin (Ecotrin) 81 mg PO DAILY [facility] Stop: 10/20/16 08:59 Last Admin: 08/25/16 08:34 Dose: 81 mg Bisacodyl (Dulcolax 5 Mg Ec Tab) 10 mg PO DAILY PRN PRN Reason: Constipation Stop: 10/20/16 00:14 Cholecalciferol (Vitamin D3) 1,000 iu PO DAILY [facility] Stop: 10/20/16 08:59 Last Admin: 08/25/16 08:33 Dose: 1,000 iu Dextromethorphan/Quinidine (Nuedexta 20mg-10mg) 1 cap PO BID [facility] Stop: 10/20/16 08:59 Last Admin: 08/25/16 08:34 Dose: 1 cap Divalproex Sodium (Depakote Sprinkle) 500 mg PO DAILY [facility] PRN Reason: Protocol Stop: 10/22/16 08:59 Last Admin: 08/25/16 08:32 Dose: 500 mg Donepezil HCl (Aricept) 10 mg PO HS [facility] Stop: 10/20/16 20:59 Last Admin: 08/24/16 21:20 Dose: 10 mg Famotidine (Pepcid) 20 mg PO BID [facility] Stop: 10/20/16 08:59 Last Admin: 08/25/16 08:33 Dose: 20 mg Fenofibrate (Tricor) 134 mg PO HS [facility] Stop: 10/21/16 20:59 Last Admin: 08/24/16 21:21 Dose: 134 mg Ferrous Sulfate (Iron) 325 mg PO DAILY [facility] Stop: 10/20/16 08:59 Last Admin: 08/25/16 08:34 Dose: 325 mg Insulin Aspart (Novolog Insulin Sliding Scale) 0 units SUBQ ACHS [facility] PRN Reason: Protocol Stop: 10/20/16 07:29 Last Admin: 08/25/16 11:51 Dose: Not Given Insulin Detemir (Levemir Insulin) 15 units SUBQ HS [facility] Stop: 10/20/16 20:59 Last Admin: 08/24/16 21:19 Dose: Not Given Lactulose (Cephulac) 20 gm PO BID [facility] Stop: 10/20/16 08:59 Last Admin: 08/25/16 08:32 Dose: Not Given Lorazepam (Ativan) 1 mg PO Q6H PRN; Protocol PRN Reason: Anxiety Stop: 10/22/16 14:28 Last Admin: 08/25/16 09:11 Dose: 1 mg Magnesium Hydroxide (Milk Of Magnesia) 30 ml PO HS PRN PRN Reason: Constipation Stop: 10/20/16 00:14 Memantine (Namenda) 10 mg PO BID [facility] Stop: 10/20/16 08:59 Last Admin: 08/25/16 08:34 Dose: 10 mg Metoprolol Tartrate (Lopressor) 50 mg PO DAILY [facility] Stop: 10/20/16 08:59 Last Admin: 08/25/16 08:33 Dose: 50 mg Risperidone (Risperdal) 2 mg PO HS [facility] PRN Reason: Protocol Stop: 10/23/16 20:59 Last Admin: 08/24/16 21:20 Dose: 2 mg Risperidone (Risperdal) 1 mg PO DAILY [facility] PRN Reason: Protocol Stop: 10/23/16 08:59 Last Admin: 08/25/16 08:33 Dose: 1 mg Vitamin B Complex/Vit C/Folic Acid (Vitamin B Complex W/Vitamin C) 1 tab PO DAILY [facility] Stop: 10/20/16 08:59 Last Admin: 08/25/16 08:32 Dose: 1 tab Zolpidem Tartrate (Ambien) 5 mg PO HS PRN PRN Reason: Insomnia Stop: 10/19/16 21:21 Last Admin: 08/24/16 21:21 Dose: 5 mg General: alert HEENT: NC/AT, PERRLA Neck: Supple Lungs: CTAB Cardiovascular: RRR, Normal S1, Normal S2, without murmur Abdomen: soft, non-tender, non-distended Extremities: clear Neurological: no change Internal Medicine Assmt/Plan - Assessment Assessment: HTN DM-2 DYSPHAGIA 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 AGITATION DEMENTIA COPD - Plan Plan: MONITOR GLUCOSE FALL PRECAUTIONS MONITOR BP CONTINUE CURRENT PLAN OF CARE Nutritional Asmnt/Malnutr-PDOC - Dietary Evaluation Malnutrition Findings (Please click <Entered> for more info): Nutritional Asmnt/Malnutrition Start: 08/22/16 15: 48 Text: Status: Complete Freq: Document 08/22/16 15:48 GSUN (Rec: 08/22/16 15:59 GSUN [email or web address]) Nutritional Asmnt/Malnutrition Patient General Information Nutritional Screening High Risk Screening Diagnosis Reason for visit: psychosis NOS Pertinent Medical Hx/Surgical Hx HTN, COPD, adult FTT, HTN, DM2 , dysphagia, unsteady gait Subjective Information 81 year old male from SNF. Pt seen asleep in kyler chair in rec room, unable to be woken up. Per nursing staff, pt is confused. Spoke to MANAGER RETAIL in rec room, MANAGER RETAIL stated pt is asleep as pt has just recievd medications, otherwise pt noted with good appetite and no nutritional concerns at this time. Pt appeared nourisehd for age, no severe wasting noted. Avg PO intake 75-100% of meals since adm. Current Diet Order/ Nutrition Support [id number] Pertinent Medications Dulcolax, Vitamin D3, Iron, Novolog, Levemir, Cephulac, MOM, Vitamin B Complex W/ Vitamin C Pertinent Labs 08/20: BUN 32H, creatinine 1.8H , glucose 267H, A1c 7.5H POC glucose 103-201 since adm Nutritional Hx/Data Height 5 ft 6 in Height (Calculated Centimeters) 167.6 Current Weight (lbs) 155 lb Weight (Calculated Kilograms) 70.3 Weight (Calculated Grams) 18322.8 [place] Body Weight 142 Weight Status Approriate GI Symptoms Usual diet at home [facility]: [facility] soft, CHRIS, CCHO Skin Integrity/Comment: 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 Current %PO Good (75-100%) Estimated Nutritional Goals BEE in Kcals: Using Current wt Calories/Kcals/Kg CBW 155lb/70.5kg Kcals Calculated 1763-2115kcal (25-30kcal/kg) Protein: Using Current wt Protein Calculated 71g (1g/kg) Fluid: ml 1763-2115ml (1ml/kcal) Nutritional Problem 1. Problem Problem Altered nutrition related laboratory values related to Etiology DM aeb Signs/Symptoms: A1c 7.5, glucose 267 on adm Intervention/Recommendation Comments 1. Recommend [id number] CHRIS. 2. Avg PO intake is adequate. Expected Outcomes/Goals Expected Outcomes/Goals 1. PO intake continue to meet at least 75% of estimated nutritional needs.
[2016-08-25] MEDS: Albuterol Nebulizer 2.5mg/3mL HHN SCH ×3 (13:40→22:39)
[2016-08-25] MEDS: Insulin Detemir 100 units/mL 10mL Vial SUBQ SCH (20:36)
[2016-08-25] MEDS: Fenofibrate, Micronized 134 mg Cap PO SCH (21:17)
[2016-08-26] MEDS: INSULIN ASPART SLIDING SCALE 100 UNITS/ML UNIT SUBQ SCH ×4 (06:37→21:27)
[2016-08-26] MEDS: Albuterol Nebulizer 2.5mg/3mL HHN SCH ×3 (08:00→19:11)
[2016-08-26] MEDS: Lactulose 10 Gm/15 mL 30mL UDC PO SCH ×2 (10:04→17:22)
[2016-08-26] MEDS: Dextromethorphan/Quinidine 20mg/10mg Cap PO SCH ×2 (10:04→17:22)
[2016-08-26] MEDS: Ferrous Sulfate 325 MG TAB PO SCH (10:05)
[2016-08-26] MEDS: Vitamin B Complex w/Vitamin C Tab PO SCH (10:06)
--- NOTE | 2016-08-26 15:24 | Internal Medicine Prog Note ---
Internal Medicine Subjective - Subjective Service Date: 08/26/16 Patient is:: awake Per staff patient has:: no adverse event Internal Medicine Objective - Results Result Diagrams: 08/20/16 19:36 08/20/16 19:36 Recent Labs: Laboratory Last Values WBC 8.8 Th/cmm (4.8-10.8) 08/20/16 19:36 RBC 3.31 Mil/cmm (3.80-5.80) L 08/20/16 19:36 Hgb 9.8 gm/dL (12.6-17.4) L 08/20/16 19:36 Hct 29.1 % (39.0-49.0) L 08/20/16 19:36 MCV 88.0 fl (80-99) 08/20/16 19:36 MCH 29.5 pg (27.0-31.0) 08/20/16 19:36 MCHC Differential 33.5 pg (28.0-36.0) 08/20/16 19:36 RDW 13.5 % (11.5-20.0) 08/20/16 19:36 Plt Count 260 Th/cmm (150-400) 08/20/16 19:36 MPV 8.7 fl 08/20/16 19:36 Neutrophils % 59.6 % (40.0-80.0) 08/20/16 19:36 Lymphocytes % 27.0 % (20.0-50.0) 08/20/16 19:36 Monocytes % 8.8 % (2.0-10.0) 08/20/16 19:36 Eosinophils % 4.2 % (0.0-5.0) 08/20/16 19:36 Basophils % 0.4 % (0.0-2.0) 08/20/16 19:36 Sodium 128 mEq/L (136-145) L 08/20/16 19:36 Potassium 4.4 mEq/L (3.5-5.1) 08/20/16 19:36 Chloride 101 mEq/L (98-107) 08/20/16 19:36 Carbon Dioxide 26.5 mEq/L (21.0-31.0) 08/20/16 19:36 Anion Gap 4.9 (7.0-16.0) L 08/20/16 19:36 BUN 32 mg/dL (7-25) H 08/20/16 19:36 Creatinine 1.8 mg/dL (0.7-1.3) H 08/20/16 19:36 Est GFR ( Amer) TNP 08/20/16 19:36 Est GFR (Non-Af Amer) TNP 08/20/16 19:36 BUN/Creatinine Ratio 17.8 08/20/16 19:36 Glucose 267 mg/dL (70-105) H 08/20/16 19:36 POC Glucose 281 MG/DL (70 - 105) H 08/26/16 12:02 Hemoglobin A1c % 7.5 % (4.0-6.0) H 08/20/16 19:36 Calcium 8.7 mg/dL (8.6-10.3) 08/20/16 19:36 Total Bilirubin 0.2 mg/dL (0.3-1.0) L 08/20/16 19:36 AST 14 U/L (13-39) 08/20/16 19:36 ALT 11 U/L (7-52) 08/20/16 19:36 Alkaline Phosphatase 80 U/L (34-104) 08/20/16 19:36 Total Protein 6.7 gm/dL (6.0-8.3) 08/20/16 19:36 Albumin 3.4 gm/dL (4.2-5.5) L 08/20/16 19:36 Globulin 3.3 gm/dL 08/20/16 19:36 Albumin/Globulin Ratio 1.0 (1.0-1.8) 08/20/16 19:36 Triglycerides 139 mg/dL (<150) 08/20/16 19:36 Cholesterol 108 mg/dL (<200) 08/20/16 19:36 LDL Cholesterol Direct 64 mg/dL (75-193) L 08/20/16 19:36 HDL Cholesterol 37 mg/dL (23-92) 08/20/16 19:36 TSH 1.57 uIU/ml (0.34-5.60) 08/20/16 19:36 Urine Source CLEAN C 08/20/16 20:00 Urine Color YELLOW 08/20/16 20:00 Urine Clarity CLEAR (CLEAR) 08/20/16 20:00 Urine pH 5.5 08/20/16 20:00 Ur Specific [place] 1.025 (1.005-1.030) 08/20/16 20:00 Urine Protein 100 mg/dL (NEGATIVE) H 08/20/16 20:00 Urine Glucose (UA) NEGATIVE mg/dL (NEGATIVE) 08/20/16 20:00 Urine Ketones TRACE mg/dL (NEGATIVE) 08/20/16 20:00 Urine Blood NEGATIVE (NEGATIVE) 08/20/16 20:00 Urine Nitrate NEGATIVE (NEGATIVE) 08/20/16 20:00 Urine Bilirubin NEGATIVE (NEGATIVE) 08/20/16 20:00 Urine Urobilinogen 0.2 E.U./dL (0.2 - 1.0) 08/20/16 20:00 Ur Leukocyte Esterase NEGATIVE (NEGATIVE) 08/20/16 20:00 Urine RBC 0-1 /hpf (0-5) 08/20/16 20:00 Urine WBC 2-5 /hpf (0-5) H 08/20/16 20:00 Ur Epithelial Cells FEW /lpf (FEW) 08/20/16 20:00 Urine Bacteria FEW /hpf (NONE SEEN) 08/20/16 20:00 Salicylates < 25.0 mg/L (30.0-100.0) L 08/20/16 19:36 Urine Opiates Screen NEGATIVE (NEGATIVE) 08/20/16 20:00 Urine Methadone Screen NEGATIVE (NEGATIVE) 08/20/16 20:00 Acetaminophen < 10.0 ug/mL (10.0-30.0) L 08/20/16 19:36 Ur Barbiturates Screen NEGATIVE (NEGATIVE) 08/20/16 20:00 Ur Tricyclics Screen NEGATIVE (NEGATIVE) 08/20/16 20:00 Ur Phencyclidine Scrn NEGATIVE (NEGATIVE) 08/20/16 20:00 Amphetamines Screen NEGATIVE (NEGATIVE) 08/20/16 20:00 U Methamphetamines Scrn POSITIVE (NEGATIVE) H 08/20/16 20:00 U Benzodiazepines Scrn POSITIVE (NEGATIVE) H 08/20/16 20:00 U Cocaine Metab Screen NEGATIVE (NEGATIVE) 08/20/16 20:00 U Cannabinoids Screen NEGATIVE (NEGATIVE) 08/20/16 20:00 Ethyl Alcohol < 10 mg/dL (0-10) 08/20/16 19:36 RPR NONREACTIVE (NONREACTIVE) 08/20/16 19:36 - Physical Exam Vitals and I&O: Vital Signs Temp 97 F 08/26/16 07:21 Pulse 71 08/26/16 13:22 Resp 18 08/26/16 08:00 BP 111/63 08/26/16 10:04 Pulse Ox 98 08/26/16 08:00 Intake & Output 08/25/16 08/26/16 08/26/16 18:59 06:59 18:59 Intake Total 800 Balance 800 Intake: Oral 800 Other: # Voids 3 2 # Bowel Movements 0 Stool Characteristics Soft Formed Brown Active Medications: Current Medications Acetaminophen (Tylenol) 650 mg PO Q4HR PRN PRN Reason: MILD PAINAND TEMP >101F Stop: 10/20/16 00:14 Last Admin: 08/21/16 14:53 Dose: 650 mg Albuterol Sulfate (Albuterol 2.5mg/3ml Neb Ud) 2.5 mg HHN BID [facility] Stop: 10/21/16 08:59 Last Admin: 08/26/16 08:01 Dose: Not Given Albuterol/Ipratropium (Duoneb Neb) 3 ml HHN Q4HR PRN PRN Reason: Shortness of Breath or Wheeze Stop: 10/20/16 00:14 Amlodipine Besylate (Norvasc) 10 mg PO DAILY [facility] Stop: 10/20/16 08:59 Last Admin: 08/26/16 10:04 Dose: 10 mg Aspirin (Ecotrin) 81 mg PO DAILY [facility] Stop: 10/20/16 08:59 Last Admin: 08/26/16 10:06 Dose: 81 mg Bisacodyl (Dulcolax 5 Mg Ec Tab) 10 mg PO DAILY PRN PRN Reason: Constipation Stop: 10/20/16 00:14 Cholecalciferol (Vitamin D3) 1,000 iu PO DAILY [facility] Stop: 10/20/16 08:59 Last Admin: 08/26/16 10:05 Dose: 1,000 iu Dextromethorphan/Quinidine (Nuedexta 20mg-10mg) 1 cap PO BID [facility] Stop: 10/20/16 08:59 Last Admin: 08/26/16 10:04 Dose: 1 cap Divalproex Sodium (Depakote Sprinkle) 500 mg PO DAILY [facility] PRN Reason: Protocol Stop: 10/22/16 08:59 Last Admin: 08/26/16 10:05 Dose: 500 mg Donepezil HCl (Aricept) 10 mg PO HS [facility] Stop: 10/20/16 20:59 Last Admin: 08/25/16 21:17 Dose: 10 mg Famotidine (Pepcid) 20 mg PO BID [facility] Stop: 10/20/16 08:59 Last Admin: 08/26/16 10:04 Dose: 20 mg Fenofibrate (Tricor) 134 mg PO HS [facility] Stop: 10/21/16 20:59 Last Admin: 08/25/16 21:17 Dose: 134 mg Ferrous Sulfate (Iron) 325 mg PO DAILY [facility] Stop: 10/20/16 08:59 Last Admin: 08/26/16 10:05 Dose: 325 mg Insulin Aspart (Novolog Insulin Sliding Scale) 0 units SUBQ ACHS [facility] PRN Reason: Protocol Stop: 10/20/16 07:29 Last Admin: 08/26/16 12:06 Dose: 6 units Insulin Detemir (Levemir Insulin) 15 units SUBQ HS [facility] Stop: 10/20/16 20:59 Last Admin: 08/25/16 20:36 Dose: 15 units Lactulose (Cephulac) 20 gm PO BID [facility] Stop: 10/20/16 08:59 Last Admin: 08/26/16 10:04 Dose: 20 gm Lorazepam (Ativan) 1 mg PO Q6H PRN; Protocol PRN Reason: Anxiety Stop: 10/22/16 14:28 Last Admin: 08/25/16 09:11 Dose: 1 mg Magnesium Hydroxide (Milk Of Magnesia) 30 ml PO HS PRN PRN Reason: Constipation Stop: 10/20/16 00:14 Memantine (Namenda) 10 mg PO BID [facility] Stop: 10/20/16 08:59 Last Admin: 08/26/16 10:05 Dose: 10 mg Metoprolol Tartrate (Lopressor) 50 mg PO DAILY [facility] Stop: 10/20/16 08:59 Last Admin: 08/26/16 10:04 Dose: 50 mg Risperidone (Risperdal) 2 mg PO HS [facility] PRN Reason: Protocol Stop: 10/23/16 20:59 Last Admin: 08/25/16 21:17 Dose: 2 mg Risperidone (Risperdal) 1 mg PO DAILY [facility] PRN Reason: Protocol Stop: 10/23/16 08:59 Last Admin: 08/26/16 10:11 Dose: 1 mg Vitamin B Complex/Vit C/Folic Acid (Vitamin B Complex W/Vitamin C) 1 tab PO DAILY [facility] Stop: 10/20/16 08:59 Last Admin: 08/26/16 10:06 Dose: 1 tab Zolpidem Tartrate (Ambien) 5 mg PO HS PRN PRN Reason: Insomnia Stop: 10/19/16 21:21 Last Admin: 08/25/16 21:17 Dose: 5 mg General: alert HEENT: NC/AT, PERRLA Neck: Supple Lungs: CTAB Cardiovascular: RRR, Normal S1, Normal S2, without murmur Abdomen: soft, non-tender, non-distended Extremities: clear Neurological: no change Internal Medicine Assmt/Plan - Assessment Assessment: HTN DM-2 DYSPHAGIA 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 AGITATION DEMENTIA COPD - Plan Plan: MONITOR GLUCOSE FALL PRECAUTIONS MONITOR BP CONTINUE CURRENT PLAN OF CARE Nutritional Asmnt/Malnutr-PDOC - Dietary Evaluation Malnutrition Findings (Please click <Entered> for more info): Nutritional Asmnt/Malnutrition Start: 08/22/16 15: 48 Text: Status: Complete Freq: Document 08/22/16 15:48 GSUN (Rec: 08/22/16 15:59 [facility] Nutritional Asmnt/Malnutrition Patient General Information Nutritional Screening High Risk Screening Diagnosis Reason for visit: psychosis NOS Pertinent Medical Hx/Surgical Hx HTN, COPD, adult FTT, HTN, DM2 , dysphagia, unsteady gait Subjective Information 81 year old male from SNF. Pt seen asleep in kyler chair in rec room, unable to be woken up. Per nursing staff, pt is confused. Spoke to WINCH STRIPPER in rec room, WINCH STRIPPER stated pt is asleep as pt has just recievd medications, otherwise pt noted with good appetite and no nutritional concerns at this time. Pt appeared nourisehd for age, no severe wasting noted. Avg PO intake 75-100% of meals since adm. Current Diet Order/ Nutrition Support [id number] Pertinent Medications Dulcolax, Vitamin D3, Iron, Novolog, Levemir, Cephulac, MOM, Vitamin B Complex W/ Vitamin C Pertinent Labs 08/20: BUN 32H, creatinine 1.8H , glucose 267H, A1c 7.5H POC glucose 103-201 since adm Nutritional Hx/Data Height 5 ft 6 in Height (Calculated Centimeters) 167.6 Current Weight (lbs) 155 lb Weight (Calculated Kilograms) 70.3 Weight (Calculated Grams) 37298.8 [place] Body Weight 142 Weight Status Approriate GI Symptoms Usual diet at home [facility]: [facility] soft, CHRIS, CCHO Skin Integrity/Comment: Ronald Toribio. 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 Current %PO Good (75-100%) Estimated Nutritional Goals BEE in Kcals: Using Current wt Calories/Kcals/Kg CBW 155lb/70.5kg Kcals Calculated 1763-2115kcal (25-30kcal/kg) Protein: Using Current wt Protein Calculated 71g (1g/kg) Fluid: ml 1763-2115ml (1ml/kcal) Nutritional Problem 1. Problem Problem Altered nutrition related laboratory values related to Etiology DM aeb Signs/Symptoms: A1c 7.5, glucose 267 on adm Intervention/Recommendation Comments 1. Recommend [id number] CHRIS. 2. Avg PO intake is adequate. Expected Outcomes/Goals Expected Outcomes/Goals 1. PO intake continue to meet at least 75% of estimated nutritional needs.
[2016-08-26] MEDS: Insulin Detemir 100 units/mL 10mL Vial SUBQ SCH (21:26)
[2016-08-26] MEDS: Fenofibrate, Micronized 134 mg Cap PO SCH (21:28)
--- NOTE | 2016-08-26 21:30 | Progress Notes ---
DATE: 08/26/2016 SUBJECTIVE: Chart reviewed and the patient interviewed. Also discussed the patient's condition with the staff and reviewed records and labs. The patient is still confused and is still in angry and irritable mood. The patient also is still easily agitated and irritable. The patient also is still rambling and has disorganized thoughts. Also, still wants to be left alone. The patient also still has difficulty following any of the staff's directions. Otherwise, the patient is compliant with taking his medications, with no side effects of medications. ASSESSMENT: The patient is still psychotic. TREATMENT PLAN: Continue to monitor his behavior and his condition closely. Also, continue to work on his agitation and irritability, and we will continue to follow up. [facility]# [id number]
[2016-08-27] MEDS: Albuterol Nebulizer 2.5mg/3mL HHN SCH ×2 (06:57→19:24)
[2016-08-27] MEDS: INSULIN ASPART SLIDING SCALE 100 UNITS/ML UNIT SUBQ SCH ×3 (12:27→21:16)
--- NOTE | 2016-08-27 15:01 | Internal Medicine Prog Note ---
Internal Medicine Subjective - Subjective Patient seen and examined:: with staff, chart reviewed Patient is:: awake, verbal, interactive Per staff patient has:: no adverse event, confused, tolerating meds Internal Medicine Objective - Results Result Diagrams: 08/20/16 19:36 08/20/16 19:36 Recent Labs: Laboratory Last Values WBC 8.8 Th/cmm (4.8-10.8) 08/20/16 19:36 RBC 3.31 Mil/cmm (3.80-5.80) L 08/20/16 19:36 Hgb 9.8 gm/dL (12.6-17.4) L 08/20/16 19:36 Hct 29.1 % (39.0-49.0) L 08/20/16 19:36 MCV 88.0 fl (80-99) 08/20/16 19:36 MCH 29.5 pg (27.0-31.0) 08/20/16 19:36 MCHC Differential 33.5 pg (28.0-36.0) 08/20/16 19:36 RDW 13.5 % (11.5-20.0) 08/20/16 19:36 Plt Count 260 Th/cmm (150-400) 08/20/16 19:36 MPV 8.7 fl 08/20/16 19:36 Neutrophils % 59.6 % (40.0-80.0) 08/20/16 19:36 Lymphocytes % 27.0 % (20.0-50.0) 08/20/16 19:36 Monocytes % 8.8 % (2.0-10.0) 08/20/16 19:36 Eosinophils % 4.2 % (0.0-5.0) 08/20/16 19:36 Basophils % 0.4 % (0.0-2.0) 08/20/16 19:36 Sodium 128 mEq/L (136-145) L 08/20/16 19:36 Potassium 4.4 mEq/L (3.5-5.1) 08/20/16 19:36 Chloride 101 mEq/L (98-107) 08/20/16 19:36 Carbon Dioxide 26.5 mEq/L (21.0-31.0) 08/20/16 19:36 Anion Gap 4.9 (7.0-16.0) L 08/20/16 19:36 BUN 32 mg/dL (7-25) H 08/20/16 19:36 Creatinine 1.8 mg/dL (0.7-1.3) H 08/20/16 19:36 Est GFR ( Amer) TNP 08/20/16 19:36 Est GFR (Non-Af Amer) TNP 08/20/16 19:36 BUN/Creatinine Ratio 17.8 08/20/16 19:36 Glucose 267 mg/dL (70-105) H 08/20/16 19:36 POC Glucose 207 MG/DL (70 - 105) H 08/27/16 12:22 Hemoglobin A1c % 7.5 % (4.0-6.0) H 08/20/16 19:36 Calcium 8.7 mg/dL (8.6-10.3) 08/20/16 19:36 Total Bilirubin 0.2 mg/dL (0.3-1.0) L 08/20/16 19:36 AST 14 U/L (13-39) 08/20/16 19:36 ALT 11 U/L (7-52) 08/20/16 19:36 Alkaline Phosphatase 80 U/L (34-104) 08/20/16 19:36 Total Protein 6.7 gm/dL (6.0-8.3) 08/20/16 19:36 Albumin 3.4 gm/dL (4.2-5.5) L 08/20/16 19:36 Globulin 3.3 gm/dL 08/20/16 19:36 Albumin/Globulin Ratio 1.0 (1.0-1.8) 08/20/16 19:36 Triglycerides 139 mg/dL (<150) 08/20/16 19:36 Cholesterol 108 mg/dL (<200) 08/20/16 19:36 LDL Cholesterol Direct 64 mg/dL (75-193) L 08/20/16 19:36 HDL Cholesterol 37 mg/dL (23-92) 08/20/16 19:36 TSH 1.57 uIU/ml (0.34-5.60) 08/20/16 19:36 Urine Source CLEAN C 08/20/16 20:00 Urine Color YELLOW 08/20/16 20:00 Urine Clarity CLEAR (CLEAR) 08/20/16 20:00 Urine pH 5.5 08/20/16 20:00 Ur Specific [place] 1.025 (1.005-1.030) 08/20/16 20:00 Urine Protein 100 mg/dL (NEGATIVE) H 08/20/16 20:00 Urine Glucose (UA) NEGATIVE mg/dL (NEGATIVE) 08/20/16 20:00 Urine Ketones TRACE mg/dL (NEGATIVE) 08/20/16 20:00 Urine Blood NEGATIVE (NEGATIVE) 08/20/16 20:00 Urine Nitrate NEGATIVE (NEGATIVE) 08/20/16 20:00 Urine Bilirubin NEGATIVE (NEGATIVE) 08/20/16 20:00 Urine Urobilinogen 0.2 E.U./dL (0.2 - 1.0) 08/20/16 20:00 Ur Leukocyte Esterase NEGATIVE (NEGATIVE) 08/20/16 20:00 Urine RBC 0-1 /hpf (0-5) 08/20/16 20:00 Urine WBC 2-5 /hpf (0-5) H 08/20/16 20:00 Ur Epithelial Cells FEW /lpf (FEW) 08/20/16 20:00 Urine Bacteria FEW /hpf (NONE SEEN) 08/20/16 20:00 Salicylates < 25.0 mg/L (30.0-100.0) L 08/20/16 19:36 Urine Opiates Screen NEGATIVE (NEGATIVE) 08/20/16 20:00 Urine Methadone Screen NEGATIVE (NEGATIVE) 08/20/16 20:00 Acetaminophen < 10.0 ug/mL (10.0-30.0) L 08/20/16 19:36 Ur Barbiturates Screen NEGATIVE (NEGATIVE) 08/20/16 20:00 Ur Tricyclics Screen NEGATIVE (NEGATIVE) 08/20/16 20:00 Ur Phencyclidine Scrn NEGATIVE (NEGATIVE) 08/20/16 20:00 Amphetamines Screen NEGATIVE (NEGATIVE) 08/20/16 20:00 U Methamphetamines Scrn POSITIVE (NEGATIVE) H 08/20/16 20:00 U Benzodiazepines Scrn POSITIVE (NEGATIVE) H 08/20/16 20:00 U Cocaine Metab Screen NEGATIVE (NEGATIVE) 08/20/16 20:00 U Cannabinoids Screen NEGATIVE (NEGATIVE) 08/20/16 20:00 Ethyl Alcohol < 10 mg/dL (0-10) 08/20/16 19:36 RPR NONREACTIVE (NONREACTIVE) 08/20/16 19:36 - Physical Exam Vitals and I&O: Vital Signs Temp 97.6 F 08/27/16 14:00 Pulse 65 08/27/16 14:00 Resp 18 08/27/16 14:00 BP 100/58 08/27/16 14:00 Pulse Ox 96 08/27/16 14:00 Intake & Output 08/26/16 08/27/16 08/27/16 18:59 06:59 18:59 Intake Total 700 Balance 700 Intake: Oral 700 Other: # Voids 3 1 # Bowel Movements 0 Active Medications: Current Medications Acetaminophen (Tylenol) 650 mg PO Q4HR PRN PRN Reason: MILD PAINAND TEMP >101F Stop: 10/20/16 00:14 Last Admin: 08/21/16 14:53 Dose: 650 mg Albuterol Sulfate (Albuterol 2.5mg/3ml Neb Ud) 2.5 mg HHN BID [facility] Stop: 10/21/16 08:59 Last Admin: 08/27/16 06:57 Dose: 2.5 mg Albuterol/Ipratropium (Duoneb Neb) 3 ml HHN Q4HR PRN PRN Reason: Shortness of Breath or Wheeze Stop: 10/20/16 00:14 Amlodipine Besylate (Norvasc) 10 mg PO DAILY [facility] Stop: 10/20/16 08:59 Last Admin: 08/26/16 10:04 Dose: 10 mg Aspirin (Ecotrin) 81 mg PO DAILY [facility] Stop: 10/20/16 08:59 Last Admin: 08/26/16 10:06 Dose: 81 mg Bisacodyl (Dulcolax 5 Mg Ec Tab) 10 mg PO DAILY PRN PRN Reason: Constipation Stop: 10/20/16 00:14 Cholecalciferol (Vitamin D3) 1,000 iu PO DAILY [facility] Stop: 10/20/16 08:59 Last Admin: 08/26/16 10:05 Dose: 1,000 iu Dextromethorphan/Quinidine (Nuedexta 20mg-10mg) 1 cap PO BID [facility] Stop: 10/20/16 08:59 Last Admin: 08/26/16 17:22 Dose: Not Given Divalproex Sodium (Depakote Sprinkle) 500 mg PO DAILY [facility] PRN Reason: Protocol Stop: 10/22/16 08:59 Last Admin: 08/26/16 10:05 Dose: 500 mg Donepezil HCl (Aricept) 10 mg PO HS [facility] Stop: 10/20/16 20:59 Last Admin: 08/26/16 21:27 Dose: 10 mg Famotidine (Pepcid) 20 mg PO BID [facility] Stop: 10/20/16 08:59 Last Admin: 08/26/16 17:22 Dose: 20 mg Fenofibrate (Tricor) 134 mg PO HS [facility] Stop: 10/21/16 20:59 Last Admin: 08/26/16 21:28 Dose: 134 mg Ferrous Sulfate (Iron) 325 mg PO DAILY [facility] Stop: 10/20/16 08:59 Last Admin: 08/26/16 10:05 Dose: 325 mg Insulin Aspart (Novolog Insulin Sliding Scale) 0 units SUBQ ACHS [facility] PRN Reason: Protocol Stop: 10/20/16 07:29 Last Admin: 08/27/16 12:27 Dose: 4 units Insulin Detemir (Levemir Insulin) 15 units SUBQ HS [facility] Stop: 10/20/16 20:59 Last Admin: 08/26/16 21:26 Dose: 15 units Lactulose (Cephulac) 20 gm PO BID [facility] Stop: 10/20/16 08:59 Last Admin: 08/26/16 17:22 Dose: 20 gm Lorazepam (Ativan) 1 mg PO Q6H PRN; Protocol PRN Reason: Anxiety Stop: 10/22/16 14:28 Last Admin: 08/25/16 09:11 Dose: 1 mg Magnesium Hydroxide (Milk Of Magnesia) 30 ml PO HS PRN PRN Reason: Constipation Stop: 10/20/16 00:14 Memantine (Namenda) 10 mg PO BID [facility] Stop: 10/20/16 08:59 Last Admin: 08/26/16 17:22 Dose: 10 mg Metoprolol Tartrate (Lopressor) 50 mg PO DAILY [facility] Stop: 10/20/16 08:59 Last Admin: 08/26/16 10:04 Dose: 50 mg Risperidone (Risperdal) 2 mg PO HS [facility] PRN Reason: Protocol Stop: 10/23/16 20:59 Last Admin: 08/26/16 21:27 Dose: 2 mg Risperidone (Risperdal) 1 mg PO DAILY [facility] PRN Reason: Protocol Stop: 10/23/16 08:59 Last Admin: 08/26/16 10:11 Dose: 1 mg Vitamin B Complex/Vit C/Folic Acid (Vitamin B Complex W/Vitamin C) 1 tab PO DAILY [facility] Stop: 10/20/16 08:59 Last Admin: 08/26/16 10:06 Dose: 1 tab Zolpidem Tartrate (Ambien) 5 mg PO HS PRN PRN Reason: Insomnia Stop: 10/19/16 21:21 Last Admin: 08/25/16 21:17 Dose: 5 mg General: alert HEENT: NC/AT, PERRLA Neck: Supple Lungs: CTAB Cardiovascular: RRR, Normal S1, Normal S2, without murmur Abdomen: soft, non-tender, non-distended Extremities: clear Neurological: no change Internal Medicine Assmt/Plan - Assessment Assessment: HTN DM-2 DYSPHAGIA 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 AGITATION DEMENTIA COPd - Plan Plan: - Plan Plan: MONITOR GLUCOSE FALL PRECAUTIONS MONITOR BP CONTINUE CURRENT PLAN OF CARE Nutritional Asmnt/Malnutr-PDOC - Dietary Evaluation Malnutrition Findings (Please click <Entered> for more info): Nutritional Asmnt/Malnutrition Start: 08/22/16 15: 48 Text: Status: Complete Freq: Document 08/22/16 15:48 GSUN (Rec: 08/22/16 15:59 GSUN [id number]) Nutritional Asmnt/Malnutrition Patient General Information Nutritional Screening High Risk Screening Diagnosis Reason for visit: psychosis NOS Pertinent Medical Hx/Surgical Hx HTN, COPD, adult FTT, HTN, DM2 , dysphagia, unsteady gait Subjective Information 81 year old male from SNF. Pt seen asleep in kyler chair in rec room, unable to be woken up. Per nursing staff, pt is confused. Spoke to MEDICAL TECH in rec room, MEDICAL TECH stated pt is asleep as pt has just recievd medications, otherwise pt noted with good appetite and no nutritional concerns at this time. Pt appeared nourisehd for age, no severe wasting noted. Avg PO intake 75-100% of meals since adm. Current Diet Order/ Nutrition Support [id number] Pertinent Medications Dulcolax, Vitamin D3, Iron, Novolog, Levemir, Cephulac, MOM, Vitamin B Complex W/ Vitamin C Pertinent Labs 08/20: BUN 32H, creatinine 1.8H , glucose 267H, A1c 7.5H POC glucose 103-201 since adm Nutritional Hx/Data Height 1.68 m Height (Calculated Centimeters) 167.6 Current Weight (lbs) 70.307 kg Weight (Calculated Kilograms) 70.3 Weight (Calculated Grams) 67121.8 [place] Body Weight 142 Weight Status Approriate GI Symptoms Usual diet at home [facility] soft, CHRIS, CCHO Skin Integrity/Comment: 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 Current %PO Good (75-100%) Estimated Nutritional Goals BEE in Kcals: Using Current wt Calories/Kcals/Kg CBW 155lb/70.5kg Kcals Calculated 1763-2115kcal (25-30kcal/kg) Protein: Using Current wt Protein Calculated 71g (1g/kg) Fluid: ml 1763-2115ml (1ml/kcal) Nutritional Problem 1. Problem Problem Altered nutrition related laboratory values related to Etiology DM aeb Signs/Symptoms: A1c 7.5, glucose 267 on adm Intervention/Recommendation Comments 1. Recommend [id number] CHRIS. 2. Avg PO intake is adequate. Expected Outcomes/Goals Expected Outcomes/Goals 1. PO intake continue to meet at least 75% of estimated nutritional needs.
[2016-08-27] MEDS: Lactulose 10 Gm/15 mL 30mL UDC PO SCH ×2 (16:42→16:49)
[2016-08-27] MEDS: Dextromethorphan/Quinidine 20mg/10mg Cap PO SCH ×2 (16:46→16:52)
[2016-08-27] MEDS: Ferrous Sulfate 325 MG TAB PO SCH (16:48)
[2016-08-27] MEDS: Vitamin B Complex w/Vitamin C Tab PO SCH (16:49)
--- NOTE | 2016-08-27 20:05 | Progress Notes ---
DATE: 08/27/2016 SUBJECTIVE: Chart reviewed and the patient interviewed. Also discussed the patient's condition with the staff and reviewed records and labs. The patient continues to be confused. The patient also is still isolative and withdrawn and interacting minimally with others. The patient also is still in a depressed mood. He also still seems to be suspicious and still seems to be paranoid and disoriented and unable to carry on coherent conversations. ASSESSMENT: The patient is still confused and psychotic. TREATMENT PLAN: Continue monitoring his behavior and his condition closely. Also, continue to work on his confusion and behavioral modification. JOB# [id number]
[2016-08-27] MEDS: Fenofibrate, Micronized 134 mg Cap PO SCH (21:16)
[2016-08-27] MEDS: Insulin Detemir 100 units/mL 10mL Vial SUBQ SCH (21:17)
[2016-08-28] MEDS: Albuterol Nebulizer 2.5mg/3mL HHN SCH ×2 (07:07→19:17)
[2016-08-28] MEDS: INSULIN ASPART SLIDING SCALE 100 UNITS/ML UNIT SUBQ SCH ×4 (07:29→20:50)
--- NOTE | 2016-08-28 11:53 | Progress Notes ---
DATE: 08/28/2016 SUBJECTIVE: Chart reviewed and the patient interviewed. Also discussed the patient's condition with the staff and reviewed records and labs. The patient wants to be left alone and is extremely angry and depressed. The patient also isolates himself and he stays by himself in his room most of the time. Also, is still restless and he is still in angry mood. Otherwise, the patient is slightly easier to redirect him. ASSESSMENT: The patient is still psychotic. TREATMENT PLAN: Continue to monitor his behavior and his condition and medications closely. We will continue to follow up. JOB# [id number]
[2016-08-28] MEDS: Dextromethorphan/Quinidine 20mg/10mg Cap PO SCH ×2 (13:54→17:06)
[2016-08-28] MEDS: Ferrous Sulfate 325 MG TAB PO SCH (13:55)
[2016-08-28] MEDS: Lactulose 10 Gm/15 mL 30mL UDC PO SCH ×2 (13:55→17:07)
[2016-08-28] MEDS: Vitamin B Complex w/Vitamin C Tab PO SCH (13:59)
--- NOTE | 2016-08-28 15:56 | Internal Medicine Prog Note ---
Internal Medicine Subjective - Subjective Patient seen and examined:: with staff, chart reviewed Patient is:: awake, verbal, interactive Per staff patient has:: no adverse event, confused, tolerating meds Internal Medicine Objective - Results Result Diagrams: 08/20/16 19:36 08/20/16 19:36 Recent Labs: Laboratory Last Values WBC 8.8 Th/cmm (4.8-10.8) 08/20/16 19:36 RBC 3.31 Mil/cmm (3.80-5.80) L 08/20/16 19:36 Hgb 9.8 gm/dL (12.6-17.4) L 08/20/16 19:36 Hct 29.1 % (39.0-49.0) L 08/20/16 19:36 MCV 88.0 fl (80-99) 08/20/16 19:36 MCH 29.5 pg (27.0-31.0) 08/20/16 19:36 MCHC Differential 33.5 pg (28.0-36.0) 08/20/16 19:36 RDW 13.5 % (11.5-20.0) 08/20/16 19:36 Plt Count 260 Th/cmm (150-400) 08/20/16 19:36 MPV 8.7 fl 08/20/16 19:36 Neutrophils % 59.6 % (40.0-80.0) 08/20/16 19:36 Lymphocytes % 27.0 % (20.0-50.0) 08/20/16 19:36 Monocytes % 8.8 % (2.0-10.0) 08/20/16 19:36 Eosinophils % 4.2 % (0.0-5.0) 08/20/16 19:36 Basophils % 0.4 % (0.0-2.0) 08/20/16 19:36 Sodium 128 mEq/L (136-145) L 08/20/16 19:36 Potassium 4.4 mEq/L (3.5-5.1) 08/20/16 19:36 Chloride 101 mEq/L (98-107) 08/20/16 19:36 Carbon Dioxide 26.5 mEq/L (21.0-31.0) 08/20/16 19:36 Anion Gap 4.9 (7.0-16.0) L 08/20/16 19:36 BUN 32 mg/dL (7-25) H 08/20/16 19:36 Creatinine 1.8 mg/dL (0.7-1.3) H 08/20/16 19:36 Est GFR ( Amer) TNP 08/20/16 19:36 Est GFR (Non-Af Amer) TNP 08/20/16 19:36 BUN/Creatinine Ratio 17.8 08/20/16 19:36 Glucose 267 mg/dL (70-105) H 08/20/16 19:36 POC Glucose 242 MG/DL (70 - 105) H 08/28/16 11:55 Hemoglobin A1c % 7.5 % (4.0-6.0) H 08/20/16 19:36 Calcium 8.7 mg/dL (8.6-10.3) 08/20/16 19:36 Total Bilirubin 0.2 mg/dL (0.3-1.0) L 08/20/16 19:36 AST 14 U/L (13-39) 08/20/16 19:36 ALT 11 U/L (7-52) 08/20/16 19:36 Alkaline Phosphatase 80 U/L (34-104) 08/20/16 19:36 Total Protein 6.7 gm/dL (6.0-8.3) 08/20/16 19:36 Albumin 3.4 gm/dL (4.2-5.5) L 08/20/16 19:36 Globulin 3.3 gm/dL 08/20/16 19:36 Albumin/Globulin Ratio 1.0 (1.0-1.8) 08/20/16 19:36 Triglycerides 139 mg/dL (<150) 08/20/16 19:36 Cholesterol 108 mg/dL (<200) 08/20/16 19:36 LDL Cholesterol Direct 64 mg/dL (75-193) L 08/20/16 19:36 HDL Cholesterol 37 mg/dL (23-92) 08/20/16 19:36 TSH 1.57 uIU/ml (0.34-5.60) 08/20/16 19:36 Urine Source CLEAN C 08/20/16 20:00 Urine Color YELLOW 08/20/16 20:00 Urine Clarity CLEAR (CLEAR) 08/20/16 20:00 Urine pH 5.5 08/20/16 20:00 Ur Specific [place] 1.025 (1.005-1.030) 08/20/16 20:00 Urine Protein 100 mg/dL (NEGATIVE) H 08/20/16 20:00 Urine Glucose (UA) NEGATIVE mg/dL (NEGATIVE) 08/20/16 20:00 Urine Ketones TRACE mg/dL (NEGATIVE) 08/20/16 20:00 Urine Blood NEGATIVE (NEGATIVE) 08/20/16 20:00 Urine Nitrate NEGATIVE (NEGATIVE) 08/20/16 20:00 Urine Bilirubin NEGATIVE (NEGATIVE) 08/20/16 20:00 Urine Urobilinogen 0.2 E.U./dL (0.2 - 1.0) 08/20/16 20:00 Ur Leukocyte Esterase NEGATIVE (NEGATIVE) 08/20/16 20:00 Urine RBC 0-1 /hpf (0-5) 08/20/16 20:00 Urine WBC 2-5 /hpf (0-5) H 08/20/16 20:00 Ur Epithelial Cells FEW /lpf (FEW) 08/20/16 20:00 Urine Bacteria FEW /hpf (NONE SEEN) 08/20/16 20:00 Salicylates < 25.0 mg/L (30.0-100.0) L 08/20/16 19:36 Urine Opiates Screen NEGATIVE (NEGATIVE) 08/20/16 20:00 Urine Methadone Screen NEGATIVE (NEGATIVE) 08/20/16 20:00 Acetaminophen < 10.0 ug/mL (10.0-30.0) L 08/20/16 19:36 Ur Barbiturates Screen NEGATIVE (NEGATIVE) 08/20/16 20:00 Ur Tricyclics Screen NEGATIVE (NEGATIVE) 08/20/16 20:00 Ur Phencyclidine Scrn NEGATIVE (NEGATIVE) 08/20/16 20:00 Amphetamines Screen NEGATIVE (NEGATIVE) 08/20/16 20:00 U Methamphetamines Scrn POSITIVE (NEGATIVE) H 08/20/16 20:00 U Benzodiazepines Scrn POSITIVE (NEGATIVE) H 08/20/16 20:00 U Cocaine Metab Screen NEGATIVE (NEGATIVE) 08/20/16 20:00 U Cannabinoids Screen NEGATIVE (NEGATIVE) 08/20/16 20:00 Ethyl Alcohol < 10 mg/dL (0-10) 08/20/16 19:36 RPR NONREACTIVE (NONREACTIVE) 08/20/16 19:36 - Physical Exam Vitals and I&O: Vital Signs Temp 97.6 F 08/28/16 07:04 Pulse 66 08/28/16 13:54 Resp 19 08/28/16 13:35 BP 97/59 08/28/16 13:54 Pulse Ox 98 08/28/16 07:08 Intake & Output 08/27/16 08/28/16 08/28/16 18:59 06:59 18:59 Intake Total 1200 Balance 1200 Intake: Oral 1200 Other: # Voids 1 1 # Bowel Movements 1 0 Active Medications: Current Medications Acetaminophen (Tylenol) 650 mg PO Q4HR PRN PRN Reason: MILD PAINAND TEMP >101F Stop: 10/20/16 00:14 Last Admin: 08/21/16 14:53 Dose: 650 mg Albuterol Sulfate (Albuterol 2.5mg/3ml Neb Ud) 2.5 mg HHN BID COUNT [facility]CLUD[facility] Stop: 10/21/16 08:59 Last Admin: 08/28/16 07:07 Dose: 2.5 mg Albuterol/Ipratropium (Duoneb Neb) 3 ml HHN Q4HR PRN PRN Reason: Shortness of Breath or Wheeze Stop: 10/20/16 00:14 Aspirin (Ecotrin) 81 mg PO DAILY COUNT [facility]CLUDES [facility] Stop: 10/20/16 08:59 Last Admin: 08/28/16 13:52 Dose: 81 mg Bisacodyl (Dulcolax 5 Mg Ec Tab) 10 mg PO DAILY PRN PRN Reason: Constipation Stop: 10/20/16 00:14 Cholecalciferol (Vitamin D3) 1,000 iu PO DAILY COUNT [facility]CLUDES [facility] Stop: 10/20/16 08:59 Last Admin: 08/28/16 13:51 Dose: 1,000 iu Dextromethorphan/Quinidine (Nuedexta 20mg-10mg) 1 cap PO BID COUNT [facility] Stop: 10/20/16 08:59 Last Admin: 08/28/16 13:54 Dose: 1 cap Divalproex Sodium (Depakote Sprinkle) 500 mg PO DAILY COUNT [facility]CLUD[facility] PRN Reason: Protocol Stop: 10/22/16 08:59 Last Admin: 08/28/16 13:54 Dose: 500 mg Donepezil HCl (Aricept) 10 mg PO HS COUNT [facility]CLUD[facility] Stop: 10/20/16 20:59 Last Admin: 08/27/16 21:16 Dose: 10 mg Famotidine (Pepcid) 20 mg PO BID ALLEN Stop: 10/20/16 08:59 Last Admin: 08/28/16 13:55 Dose: 20 mg Fenofibrate (Tricor) 134 mg PO HS COUNT [facility]CLUD[facility] Stop: 10/21/16 20:59 Last Admin: 08/27/16 21:16 Dose: 134 mg Ferrous Sulfate (Iron) 325 mg PO DAILY ALLEN Stop: 10/20/16 08:59 Last Admin: 08/28/16 13:55 Dose: 325 mg Insulin Aspart (Novolog Insulin Sliding Scale) 0 units SUBQ ACHS ALLEN PRN Reason: Protocol Stop: 10/20/16 07:29 Last Admin: 08/28/16 11:58 Dose: 4 units Lactulose (Cephulac) 20 gm PO BID COUNT [facility] Stop: 10/20/16 08:59 Last Admin: 08/28/16 13:55 Dose: 20 gm Lorazepam (Ativan) 1 mg PO Q6H PRN; Protocol PRN Reason: Anxiety Stop: 10/22/16 14:28 Last Admin: 08/25/16 09:11 Dose: 1 mg Magnesium Hydroxide (Milk Of Magnesia) 30 ml PO HS PRN PRN Reason: Constipation Stop: 10/20/16 00:14 Memantine (Namenda) 10 mg PO BID COUNT [facility]CLUD[facility] Stop: 10/20/16 08:59 Last Admin: 08/28/16 13:56 Dose: 10 mg Risperidone (Risperdal) 2 mg PO HS ALLEN PRN Reason: Protocol Stop: 10/23/16 20:59 Last Admin: 08/27/16 21:16 Dose: 2 mg Risperidone (Risperdal) 1 mg PO DAILY ALLEN PRN Reason: Protocol Stop: 10/23/16 08:59 Last Admin: 08/28/16 13:57 Dose: 1 mg Vitamin B Complex/Vit C/Folic Acid (Vitamin B Complex W/Vitamin C) 1 tab PO DAILY COUNT [facility]CLUDES [facility] Stop: 10/20/16 08:59 Last Admin: 08/28/16 13:59 Dose: 1 tab General: alert HEENT: NC/AT, PERRLA Neck: Supple Lungs: CTAB Cardiovascular: RRR, Normal S1, Normal S2, without murmur Abdomen: soft, non-tender, non-distended Extremities: clear Neurological: no change Internal Medicine Assmt/Plan - Assessment Assessment: HTN--low DM-2--hypoglycemia DYSPHAGIA 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 AGITATION DEMENTIA COPd - Plan Plan: - Plan Plan: MONITOR GLUCOSE FALL PRECAUTIONS MONITOR BP CONTINUE CURRENT PLAN OF CARE see orders Nutritional Asmnt/Malnutr-PDOC - Dietary Evaluation Malnutrition Findings (Please click <Entered> for more info): Nutritional Asmnt/Malnutrition Start: 08/22/16 15: 48 Text: Status: Complete Freq: Document 08/22/16 15:48 GSUN (Rec: 08/22/16 15:59 GSUN [id number]) Nutritional Asmnt/Malnutrition Patient General Information Nutritional Screening High Risk Screening Diagnosis Reason for visit: psychosis NOS Pertinent Medical Hx/Surgical Hx HTN, COPD, adult FTT, HTN, DM2 , dysphagia, unsteady gait Subjective Information 81 year old male from SNF. Pt seen asleep in kyler chair in rec room, unable to be woken up. Per nursing staff, pt is confused. Spoke to MODEL AND DYE PERSON in rec room, MODEL AND DYE PERSON stated pt is asleep as pt has just recievd medications, otherwise pt noted with good appetite and no nutritional concerns at this time. Pt appeared nourisehd for age, no severe wasting noted. Avg PO intake 75-100% of meals since adm. Current Diet Order/ Nutrition Support [id number] Pertinent Medications Dulcolax, Vitamin D3, Iron, Novolog, Levemir, Cephulac, MOM, Vitamin B Complex W/ Vitamin C Pertinent Labs 08/20: BUN 32H, creatinine 1.8H , glucose 267H, A1c 7.5H POC glucose 103-201 since adm Nutritional Hx/Data Height 1.68 m Height (Calculated Centimeters) 167.6 Current Weight (lbs) 70.307 kg Weight (Calculated Kilograms) 70.3 Weight (Calculated Grams) 22615.8 [place] Body Weight 142 Weight Status Approriate GI Symptoms Usual diet at home [facility]: Mech soft, CHRIS, [facility] Skin Integrity/Comment: Ronald Toribio. rn emergency: multiple facial skin scratch. Current %PO Good (75-100%) Estimated Nutritional Goals BEE in Kcals: Using Current wt Calories/Kcals/Kg CBW 155lb/70.5kg Kcals Calculated 1763-2115kcal (25-30kcal/kg) Protein: Using Current wt Protein Calculated 71g (1g/kg) Fluid: ml 1763-2115ml (1ml/kcal) Nutritional Problem 1. Problem Problem Altered nutrition related laboratory values related to Etiology DM aeb Signs/Symptoms: A1c 7.5, glucose 267 on adm Intervention/Recommendation Comments 1. Recommend [id number] CHRIS. 2. Avg PO intake is adequate. Expected Outcomes/Goals Expected Outcomes/Goals 1. PO intake continue to meet at least 75% of estimated nutritional needs.
[2016-08-28] MEDS: Insulin Detemir 100 units/mL 10mL Vial SUBQ SCH (20:50)
[2016-08-28] MEDS: Fenofibrate, Micronized 134 mg Cap PO SCH (21:27)
[2016-08-29] MEDS: Albuterol Nebulizer 2.5mg/3mL HHN SCH (06:26)
[2016-08-29] MEDS: INSULIN ASPART SLIDING SCALE 100 UNITS/ML UNIT SUBQ SCH ×4 (06:44→20:31)
[2016-08-29] MEDS: Dextromethorphan/Quinidine 20mg/10mg Cap PO SCH ×2 (09:40→16:39)
[2016-08-29] MEDS: Vitamin B Complex w/Vitamin C Tab PO SCH (10:02)
[2016-08-29] MEDS: Ferrous Sulfate 325 MG TAB PO SCH (10:02)
[2016-08-29] MEDS: Lactulose 10 Gm/15 mL 30mL UDC PO SCH ×2 (10:04→16:39)
--- NOTE | 2016-08-29 10:51 | Progress Notes ---
DATE: 08/29/[address] Velasquez. SUBJECTIVE: Case was discussed with staff of the patient, reviewed records. This is an 81-year-old male admitted on 08/20/2016. Diagnosed with psychosis and dementia. He has been yelling and screaming, confused, unable to make safe plan for self-care, unpredictable, impulsive. He is on 1 tablet twice a day, Depakote 500 mg daily, and Aricept 10 mg at bedtime. He had no side effects, no sedation, no nausea, no extrapyramidal . He is on Namenda also 10 mg twice a day, Risperdal 2 mg at bedtime. No side effects from the medications. We will continue to work with the patient in group therapy, milieu therapy, adjust the medication as needed. JOB# [id number]
--- NOTE | 2016-08-29 12:52 | Internal Medicine Prog Note ---
Internal Medicine Subjective - Subjective Service Date: 08/29/16 (bp much better today) Patient is:: awake, verbal, interactive Per staff patient has:: no adverse event, confused, tolerating meds Internal Medicine Objective - Results Result Diagrams: 08/20/16 19:36 08/20/16 19:36 Recent Labs: Laboratory Last Values WBC 8.8 Th/cmm (4.8-10.8) 08/20/16 19:36 RBC 3.31 Mil/cmm (3.80-5.80) L 08/20/16 19:36 Hgb 9.8 gm/dL (12.6-17.4) L 08/20/16 19:36 Hct 29.1 % (39.0-49.0) L 08/20/16 19:36 MCV 88.0 fl (80-99) 08/20/16 19:36 MCH 29.5 pg (27.0-31.0) 08/20/16 19:36 MCHC Differential 33.5 pg (28.0-36.0) 08/20/16 19:36 RDW 13.5 % (11.5-20.0) 08/20/16 19:36 Plt Count 260 Th/cmm (150-400) 08/20/16 19:36 MPV 8.7 fl 08/20/16 19:36 Neutrophils % 59.6 % (40.0-80.0) 08/20/16 19:36 Lymphocytes % 27.0 % (20.0-50.0) 08/20/16 19:36 Monocytes % 8.8 % (2.0-10.0) 08/20/16 19:36 Eosinophils % 4.2 % (0.0-5.0) 08/20/16 19:36 Basophils % 0.4 % (0.0-2.0) 08/20/16 19:36 Sodium 128 mEq/L (136-145) L 08/20/16 19:36 Potassium 4.4 mEq/L (3.5-5.1) 08/20/16 19:36 Chloride 101 mEq/L (98-107) 08/20/16 19:36 Carbon Dioxide 26.5 mEq/L (21.0-31.0) 08/20/16 19:36 Anion Gap 4.9 (7.0-16.0) L 08/20/16 19:36 BUN 32 mg/dL (7-25) H 08/20/16 19:36 Creatinine 1.8 mg/dL (0.7-1.3) H 08/20/16 19:36 Est GFR ( Amer) TNP 08/20/16 19:36 Est GFR (Non-Af Amer) TNP 08/20/16 19:36 BUN/Creatinine Ratio 17.8 08/20/16 19:36 Glucose 267 mg/dL (70-105) H 08/20/16 19:36 POC Glucose 86 MG/DL (70 - 105) 08/29/16 11:59 Hemoglobin A1c % 7.5 % (4.0-6.0) H 08/20/16 19:36 Calcium 8.7 mg/dL (8.6-10.3) 08/20/16 19:36 Total Bilirubin 0.2 mg/dL (0.3-1.0) L 08/20/16 19:36 AST 14 U/L (13-39) 08/20/16 19:36 ALT 11 U/L (7-52) 08/20/16 19:36 Alkaline Phosphatase 80 U/L (34-104) 08/20/16 19:36 Total Protein 6.7 gm/dL (6.0-8.3) 08/20/16 19:36 Albumin 3.4 gm/dL (4.2-5.5) L 08/20/16 19:36 Globulin 3.3 gm/dL 08/20/16 19:36 Albumin/Globulin Ratio 1.0 (1.0-1.8) 08/20/16 19:36 Triglycerides 139 mg/dL (<150) 08/20/16 19:36 Cholesterol 108 mg/dL (<200) 08/20/16 19:36 LDL Cholesterol Direct 64 mg/dL (75-193) L 08/20/16 19:36 HDL Cholesterol 37 mg/dL (23-92) 08/20/16 19:36 TSH 1.57 uIU/ml (0.34-5.60) 08/20/16 19:36 Urine Source CLEAN C 08/20/16 20:00 Urine Color YELLOW 08/20/16 20:00 Urine Clarity CLEAR (CLEAR) 08/20/16 20:00 Urine pH 5.5 08/20/16 20:00 Ur Specific [place] 1.025 (1.005-1.030) 08/20/16 20:00 Urine Protein 100 mg/dL (NEGATIVE) H 08/20/16 20:00 Urine Glucose (UA) NEGATIVE mg/dL (NEGATIVE) 08/20/16 20:00 Urine Ketones TRACE mg/dL (NEGATIVE) 08/20/16 20:00 Urine Blood NEGATIVE (NEGATIVE) 08/20/16 20:00 Urine Nitrate NEGATIVE (NEGATIVE) 08/20/16 20:00 Urine Bilirubin NEGATIVE (NEGATIVE) 08/20/16 20:00 Urine Urobilinogen 0.2 E.U./dL (0.2 - 1.0) 08/20/16 20:00 Ur Leukocyte Esterase NEGATIVE (NEGATIVE) 08/20/16 20:00 Urine RBC 0-1 /hpf (0-5) 08/20/16 20:00 Urine WBC 2-5 /hpf (0-5) H 08/20/16 20:00 Ur Epithelial Cells FEW /lpf (FEW) 08/20/16 20:00 Urine Bacteria FEW /hpf (NONE SEEN) 08/20/16 20:00 Salicylates < 25.0 mg/L (30.0-100.0) L 08/20/16 19:36 Urine Opiates Screen NEGATIVE (NEGATIVE) 08/20/16 20:00 Urine Methadone Screen NEGATIVE (NEGATIVE) 08/20/16 20:00 Acetaminophen < 10.0 ug/mL (10.0-30.0) L 08/20/16 19:36 Ur Barbiturates Screen NEGATIVE (NEGATIVE) 08/20/16 20:00 Ur Tricyclics Screen NEGATIVE (NEGATIVE) 08/20/16 20:00 Ur Phencyclidine Scrn NEGATIVE (NEGATIVE) 08/20/16 20:00 Amphetamines Screen NEGATIVE (NEGATIVE) 08/20/16 20:00 U Methamphetamines Scrn POSITIVE (NEGATIVE) H 08/20/16 20:00 U Benzodiazepines Scrn POSITIVE (NEGATIVE) H 08/20/16 20:00 U Cocaine Metab Screen NEGATIVE (NEGATIVE) 08/20/16 20:00 U Cannabinoids Screen NEGATIVE (NEGATIVE) 08/20/16 20:00 Ethyl Alcohol < 10 mg/dL (0-10) 08/20/16 19:36 RPR NONREACTIVE (NONREACTIVE) 08/20/16 19:36 - Physical Exam Vitals and I&O: Vital Signs Temp 98.8 F 08/28/16 20:28 Pulse 73 08/29/16 10:05 Resp 14 08/29/16 06:45 BP 124/89 08/29/16 10:05 Pulse Ox 98 08/29/16 06:45 Intake & Output 08/28/16 08/29/16 08/29/16 18:59 06:59 18:59 Intake Total 950 Balance 950 Intake: Oral 950 Other: # Voids 4 # Bowel Movements 0 Active Medications: Current Medications Acetaminophen (Tylenol) 650 mg PO Q4HR PRN PRN Reason: MILD PAINAND TEMP >101F Stop: 10/20/16 00:14 Last Admin: 08/21/16 14:53 Dose: 650 mg Albuterol Sulfate (Albuterol 2.5mg/3ml Neb Ud) 2.5 mg HHN BID [facility] Stop: 10/21/16 08:59 Last Admin: 08/29/16 06:26 Dose: 2.5 mg Albuterol/Ipratropium (Duoneb Neb) 3 ml HHN Q4HR PRN PRN Reason: Shortness of Breath or Wheeze Stop: 10/20/16 00:14 Amlodipine Besylate (Norvasc) 5 mg PO DAILY [facility] Stop: 10/20/16 08:59 Last Admin: 08/29/16 09:53 Dose: 5 mg Aspirin (Ecotrin) 81 mg PO DAILY [facility] Stop: 10/20/16 08:59 Last Admin: 08/29/16 09:41 Dose: 81 mg Bisacodyl (Dulcolax 5 Mg Ec Tab) 10 mg PO DAILY PRN PRN Reason: Constipation Stop: 10/20/16 00:14 Cholecalciferol (Vitamin D3) 1,000 iu PO DAILY [facility] Stop: 10/20/16 08:59 Last Admin: 08/29/16 09:40 Dose: 1,000 iu Dextromethorphan/Quinidine (Nuedexta 20mg-10mg) 1 cap PO BID [facility] Stop: 10/20/16 08:59 Last Admin: 08/29/16 09:40 Dose: 1 cap Divalproex Sodium (Depakote Sprinkle) 500 mg PO DAILY ALLEN PRN Reason: Protocol Stop: 10/22/16 08:59 Last Admin: 08/29/16 09:39 Dose: 500 mg Donepezil HCl (Aricept) 10 mg PO HS [facility] Stop: 10/20/16 20:59 Last Admin: 08/28/16 21:27 Dose: 10 mg Famotidine (Pepcid) 20 mg PO BID ALLEN Stop: 10/20/16 08:59 Last Admin: 08/29/16 10:02 Dose: 20 mg Fenofibrate (Tricor) 134 mg PO HS [facility] Stop: 10/21/16 20:59 Last Admin: 08/28/16 21:27 Dose: 134 mg Ferrous Sulfate (Iron) 325 mg PO DAILY [facility] Stop: 10/20/16 08:59 Last Admin: 08/29/16 10:02 Dose: 325 mg Insulin Aspart (Novolog Insulin Sliding Scale) 0 units SUBQ ACHS ALLEN PRN Reason: Protocol Stop: 10/20/16 07:29 Last Admin: 08/29/16 12:15 Dose: Not Given Insulin Detemir (Levemir Insulin) 8 units SUBQ HS [facility] Stop: 10/27/16 15:53 Last Admin: 08/28/16 20:50 Dose: 8 unit Lactulose (Cephulac) 20 gm PO BID [facility] Stop: 10/20/16 08:59 Last Admin: 08/29/16 10:04 Dose: 20 gm Lorazepam (Ativan) 1 mg PO Q6H PRN; Protocol PRN Reason: Anxiety Stop: 10/22/16 14:28 Last Admin: 08/28/16 21:27 Dose: 1 mg Magnesium Hydroxide (Milk Of Magnesia) 30 ml PO HS PRN PRN Reason: Constipation Stop: 10/20/16 00:14 Memantine (Namenda) 10 mg PO BID [facility] Stop: 10/20/16 08:59 Last Admin: 08/29/16 10:02 Dose: 10 mg Metoprolol Tartrate (Lopressor) 25 mg PO DAILY [facility] Stop: 10/27/16 15:54 Last Admin: 08/29/16 10:05 Dose: 25 mg Risperidone (Risperdal) 2 mg PO HS ALLEN PRN Reason: Protocol Stop: 10/23/16 20:59 Last Admin: 08/28/16 21:27 Dose: 2 mg Risperidone (Risperdal) 1 mg PO DAILY ALLEN PRN Reason: Protocol Stop: 10/23/16 08:59 Last Admin: 08/29/16 10:16 Dose: 1 mg Vitamin B Complex/Vit C/Folic Acid (Vitamin B Complex W/Vitamin C) 1 tab PO DAILY ALLEN Stop: 10/20/16 08:59 Last Admin: 08/29/16 10:02 Dose: 1 tab General: alert HEENT: NC/AT, PERRLA Neck: Supple Lungs: CTAB Cardiovascular: RRR, Normal S1, Normal S2, without murmur Abdomen: soft, non-tender, non-distended Extremities: clear Neurological: no change Internal Medicine Assmt/Plan - Assessment Assessment: HTN DM-2 DYSPHAGIA 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 AGITATION DEMENTIA COPD - Plan Plan: MONITOR GLUCOSE FALL PRECAUTIONS MONITOR BP CONTINUE CURRENT PLAN OF CARE Nutritional Asmnt/Malnutr-PDOC - Dietary Evaluation Malnutrition Findings (Please click <Entered> for more info): Nutritional Asmnt/Malnutrition Start: 08/22/16 15: 48 Text: Status: Complete Freq: Document 08/22/16 15:48 GSUN (Rec: 08/22/16 15:59 GSUN [id number]) Nutritional Asmnt/Malnutrition Patient General Information Nutritional Screening High Risk Screening Diagnosis Reason for visit: psychosis NOS Pertinent Medical Hx/Surgical Hx HTN, COPD, adult FTT, HTN, DM2 , dysphagia, unsteady gait Subjective Information 81 year old male from SNF. Pt seen asleep in kyler chair in rec room, unable to be woken up. Per nursing staff, pt is confused. Spoke to PLANT GUARD in rec room, PLANT GUARD stated pt is asleep as pt has just recievd medications, otherwise pt noted with good appetite and no nutritional concerns at this time. Pt appeared nourisehd for age, no severe wasting noted. Avg PO intake 75-100% of meals since adm. Current Diet Order/ Nutrition Support [id number] Pertinent Medications Dulcolax, Vitamin D3, Iron, Novolog, Levemir, Cephulac, MOM, Vitamin B Complex W/ Vitamin C Pertinent Labs 08/20: BUN 32H, creatinine 1.8H , glucose 267H, A1c 7.5H POC glucose 103-201 since adm Nutritional Hx/Data Height 5 ft 6 in Height (Calculated Centimeters) 167.6 Current Weight (lbs) 155 lb Weight (Calculated Kilograms) 70.3 Weight (Calculated Grams) 34587.8 [place] Body Weight 142 Weight Status Approriate GI Symptoms Usual diet at home [facility] Skin Integrity/Comment: Ronald Toribio. complaint evaluation supervisor: multiple facial skin scratch. Current %PO Good (75-100%) Estimated Nutritional Goals BEE in Kcals: Using Current wt Calories/Kcals/Kg CBW 155lb/70.5kg Kcals Calculated 1763-2115kcal (25-30kcal/kg) Protein: Using Current wt Protein Calculated 71g (1g/kg) Fluid: ml 1763-2115ml (1ml/kcal) Nutritional Problem 1. Problem Problem Altered nutrition related laboratory values related to Etiology DM aeb Signs/Symptoms: A1c 7.5, glucose 267 on adm Intervention/Recommendation Comments 1. Recommend [id number] CHRIS. 2. Avg PO intake is adequate. Expected Outcomes/Goals Expected Outcomes/Goals 1. PO intake continue to meet at least 75% of estimated nutritional needs.
[2016-08-29] MEDS: Fenofibrate, Micronized 134 mg Cap PO SCH (20:21)
[2016-08-29] MEDS: Insulin Detemir 100 units/mL 10mL Vial SUBQ SCH (20:22)
[2016-08-30] MEDS: INSULIN ASPART SLIDING SCALE 100 UNITS/ML UNIT SUBQ SCH ×4 (06:48→20:29)
[2016-08-30] MEDS: Albuterol Nebulizer 2.5mg/3mL HHN SCH ×2 (07:55→20:23)
[2016-08-30] MEDS: Lactulose 10 Gm/15 mL 30mL UDC PO SCH ×2 (09:52→16:34)
[2016-08-30] MEDS: Ferrous Sulfate 325 MG TAB PO SCH (09:54)
[2016-08-30] MEDS: Vitamin B Complex w/Vitamin C Tab PO SCH (09:54)
[2016-08-30] MEDS: Dextromethorphan/Quinidine 20mg/10mg Cap PO SCH ×2 (09:55→16:34)
--- NOTE | 2016-08-30 12:02 | Internal Medicine Prog Note ---
Internal Medicine Subjective - Subjective Service Date: 08/30/16 Patient is:: awake, verbal, interactive Per staff patient has:: no adverse event, confused, tolerating meds Internal Medicine Objective - Results Result Diagrams: 08/20/16 19:36 08/20/16 19:36 Recent Labs: Laboratory Last Values WBC 8.8 Th/cmm (4.8-10.8) 08/20/16 19:36 RBC 3.31 Mil/cmm (3.80-5.80) L 08/20/16 19:36 Hgb 9.8 gm/dL (12.6-17.4) L 08/20/16 19:36 Hct 29.1 % (39.0-49.0) L 08/20/16 19:36 MCV 88.0 fl (80-99) 08/20/16 19:36 MCH 29.5 pg (27.0-31.0) 08/20/16 19:36 MCHC Differential 33.5 pg (28.0-36.0) 08/20/16 19:36 RDW 13.5 % (11.5-20.0) 08/20/16 19:36 Plt Count 260 Th/cmm (150-400) 08/20/16 19:36 MPV 8.7 fl 08/20/16 19:36 Neutrophils % 59.6 % (40.0-80.0) 08/20/16 19:36 Lymphocytes % 27.0 % (20.0-50.0) 08/20/16 19:36 Monocytes % 8.8 % (2.0-10.0) 08/20/16 19:36 Eosinophils % 4.2 % (0.0-5.0) 08/20/16 19:36 Basophils % 0.4 % (0.0-2.0) 08/20/16 19:36 Sodium 128 mEq/L (136-145) L 08/20/16 19:36 Potassium 4.4 mEq/L (3.5-5.1) 08/20/16 19:36 Chloride 101 mEq/L (98-107) 08/20/16 19:36 Carbon Dioxide 26.5 mEq/L (21.0-31.0) 08/20/16 19:36 Anion Gap 4.9 (7.0-16.0) L 08/20/16 19:36 BUN 32 mg/dL (7-25) H 08/20/16 19:36 Creatinine 1.8 mg/dL (0.7-1.3) H 08/20/16 19:36 Est GFR ( Amer) TNP 08/20/16 19:36 Est GFR (Non-Af Amer) TNP 08/20/16 19:36 BUN/Creatinine Ratio 17.8 08/20/16 19:36 Glucose 267 mg/dL (70-105) H 08/20/16 19:36 POC Glucose 179 MG/DL (70 - 105) H 08/29/16 20:17 Hemoglobin A1c % 7.5 % (4.0-6.0) H 08/20/16 19:36 Calcium 8.7 mg/dL (8.6-10.3) 08/20/16 19:36 Total Bilirubin 0.2 mg/dL (0.3-1.0) L 08/20/16 19:36 AST 14 U/L (13-39) 08/20/16 19:36 ALT 11 U/L (7-52) 08/20/16 19:36 Alkaline Phosphatase 80 U/L (34-104) 08/20/16 19:36 Total Protein 6.7 gm/dL (6.0-8.3) 08/20/16 19:36 Albumin 3.4 gm/dL (4.2-5.5) L 08/20/16 19:36 Globulin 3.3 gm/dL 08/20/16 19:36 Albumin/Globulin Ratio 1.0 (1.0-1.8) 08/20/16 19:36 Triglycerides 139 mg/dL (<150) 08/20/16 19:36 Cholesterol 108 mg/dL (<200) 08/20/16 19:36 LDL Cholesterol Direct 64 mg/dL (75-193) L 08/20/16 19:36 HDL Cholesterol 37 mg/dL (23-92) 08/20/16 19:36 TSH 1.57 uIU/ml (0.34-5.60) 08/20/16 19:36 Urine Source CLEAN C 08/20/16 20:00 Urine Color YELLOW 08/20/16 20:00 Urine Clarity CLEAR (CLEAR) 08/20/16 20:00 Urine pH 5.5 08/20/16 20:00 Ur Specific [place] 1.025 (1.005-1.030) 08/20/16 20:00 Urine Protein 100 mg/dL (NEGATIVE) H 08/20/16 20:00 Urine Glucose (UA) NEGATIVE mg/dL (NEGATIVE) 08/20/16 20:00 Urine Ketones TRACE mg/dL (NEGATIVE) 08/20/16 20:00 Urine Blood NEGATIVE (NEGATIVE) 08/20/16 20:00 Urine Nitrate NEGATIVE (NEGATIVE) 08/20/16 20:00 Urine Bilirubin NEGATIVE (NEGATIVE) 08/20/16 20:00 Urine Urobilinogen 0.2 E.U./dL (0.2 - 1.0) 08/20/16 20:00 Ur Leukocyte Esterase NEGATIVE (NEGATIVE) 08/20/16 20:00 Urine RBC 0-1 /hpf (0-5) 08/20/16 20:00 Urine WBC 2-5 /hpf (0-5) H 08/20/16 20:00 Ur Epithelial Cells FEW /lpf (FEW) 08/20/16 20:00 Urine Bacteria FEW /hpf (NONE SEEN) 08/20/16 20:00 Salicylates < 25.0 mg/L (30.0-100.0) L 08/20/16 19:36 Urine Opiates Screen NEGATIVE (NEGATIVE) 08/20/16 20:00 Urine Methadone Screen NEGATIVE (NEGATIVE) 08/20/16 20:00 Acetaminophen < 10.0 ug/mL (10.0-30.0) L 08/20/16 19:36 Ur Barbiturates Screen NEGATIVE (NEGATIVE) 08/20/16 20:00 Ur Tricyclics Screen NEGATIVE (NEGATIVE) 08/20/16 20:00 Ur Phencyclidine Scrn NEGATIVE (NEGATIVE) 08/20/16 20:00 Amphetamines Screen NEGATIVE (NEGATIVE) 08/20/16 20:00 U Methamphetamines Scrn POSITIVE (NEGATIVE) H 08/20/16 20:00 U Benzodiazepines Scrn POSITIVE (NEGATIVE) H 08/20/16 20:00 U Cocaine Metab Screen NEGATIVE (NEGATIVE) 08/20/16 20:00 U Cannabinoids Screen NEGATIVE (NEGATIVE) 08/20/16 20:00 Ethyl Alcohol < 10 mg/dL (0-10) 08/20/16 19:36 RPR NONREACTIVE (NONREACTIVE) 08/20/16 19:36 - Physical Exam Vitals and I&O: Vital Signs Temp 97.8 F 08/30/16 06:00 Pulse 83 08/30/16 09:56 Resp 20 08/30/16 06:00 BP 142/85 08/30/16 09:56 Pulse Ox 98 08/30/16 06:00 Intake & Output 08/29/16 08/30/16 08/30/16 18:59 06:59 18:59 Intake Total 1400 Balance 1400 Weight (lbs) 148 lb 1.6 oz Intake: Oral 1400 Other: # Voids 4 # Bowel Movements 1 Active Medications: Current Medications Acetaminophen (Tylenol) 650 mg PO Q4HR PRN PRN Reason: MILD PAINAND TEMP >101F Stop: 10/20/16 00:14 Last Admin: 08/21/16 14:53 Dose: 650 mg Albuterol Sulfate (Albuterol 2.5mg/3ml Neb Ud) 2.5 mg HHN BID [facility] Stop: 10/21/16 08:59 Last Admin: 08/30/16 07:55 Dose: 2.5 mg Albuterol/Ipratropium (Duoneb Neb) 3 ml HHN Q4HR PRN PRN Reason: Shortness of Breath or Wheeze Stop: 10/20/16 00:14 Last Admin: 08/29/16 19:31 Dose: 3 ml Amlodipine Besylate (Norvasc) 5 mg PO DAILY [facility] Stop: 10/20/16 08:59 Last Admin: 08/30/16 09:52 Dose: 5 mg Aspirin (Ecotrin) 81 mg PO DAILY [facility] Stop: 10/20/16 08:59 Last Admin: 08/30/16 09:53 Dose: 81 mg Bisacodyl (Dulcolax 5 Mg Ec Tab) 10 mg PO DAILY PRN PRN Reason: Constipation Stop: 10/20/16 00:14 Cholecalciferol (Vitamin D3) 1,000 iu PO DAILY [facility] Stop: 10/20/16 08:59 Last Admin: 08/30/16 09:55 Dose: 1,000 iu Dextromethorphan/Quinidine (Nuedexta 20mg-10mg) 1 cap PO BID [facility] Stop: 10/20/16 08:59 Last Admin: 08/30/16 09:55 Dose: 1 cap Divalproex Sodium (Depakote Sprinkle) 500 mg PO DAILY ALLEN PRN Reason: Protocol Stop: 10/22/16 08:59 Last Admin: 08/30/16 09:54 Dose: 500 mg Donepezil HCl (Aricept) 10 mg PO HS [facility] Stop: 10/20/16 20:59 Last Admin: 08/29/16 20:21 Dose: 10 mg Famotidine (Pepcid) 20 mg PO BID ALLEN Stop: 10/20/16 08:59 Last Admin: 08/30/16 09:53 Dose: 20 mg Fenofibrate (Tricor) 134 mg PO HS [facility] Stop: 10/21/16 20:59 Last Admin: 08/29/16 20:21 Dose: 134 mg Ferrous Sulfate (Iron) 325 mg PO DAILY [facility] Stop: 10/20/16 08:59 Last Admin: 08/30/16 09:54 Dose: 325 mg Insulin Aspart (Novolog Insulin Sliding Scale) 0 units SUBQ ACHS ALLEN PRN Reason: Protocol Stop: 10/20/16 07:29 Last Admin: 08/30/16 06:48 Dose: Not Given Insulin Detemir (Levemir Insulin) 8 units SUBQ HS [facility] Stop: 10/27/16 15:53 Last Admin: 08/29/16 20:22 Dose: 8 unit Lactulose (Cephulac) 20 gm PO BID [facility] Stop: 10/20/16 08:59 Last Admin: 08/30/16 09:52 Dose: 20 gm Lorazepam (Ativan) 1 mg PO Q6H PRN; Protocol PRN Reason: Anxiety Stop: 10/22/16 14:28 Last Admin: 08/28/16 21:27 Dose: 1 mg Magnesium Hydroxide (Milk Of Magnesia) 30 ml PO HS PRN PRN Reason: Constipation Stop: 10/20/16 00:14 Memantine (Namenda) 10 mg PO BID [facility] Stop: 10/20/16 08:59 Last Admin: 08/30/16 09:54 Dose: 10 mg Metoprolol Tartrate (Lopressor) 25 mg PO DAILY [facility] Stop: 10/27/16 15:54 Last Admin: 08/30/16 09:56 Dose: 25 mg Risperidone (Risperdal) 2 mg PO HS ALLEN PRN Reason: Protocol Stop: 10/23/16 20:59 Last Admin: 08/29/16 20:21 Dose: 2 mg Risperidone (Risperdal) 1 mg PO DAILY ALLEN PRN Reason: Protocol Stop: 10/23/16 08:59 Last Admin: 08/30/16 09:55 Dose: 1 mg Vitamin B Complex/Vit C/Folic Acid (Vitamin B Complex W/Vitamin C) 1 tab PO DAILY ALLEN Stop: 10/20/16 08:59 Last Admin: 08/30/16 09:54 Dose: 1 tab General: alert HEENT: NC/AT, PERRLA Neck: Supple Lungs: CTAB Cardiovascular: RRR, Normal S1, Normal S2, without murmur Abdomen: soft, non-tender, non-distended Extremities: clear Neurological: no change Internal Medicine Assmt/Plan - Assessment Assessment: HTN DM-2 DYSPHAGIA 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 AGITATION DEMENTIA COPD - Plan Plan: MONITOR GLUCOSE FALL PRECAUTIONS MONITOR BP CONTINUE CURRENT PLAN OF CARE Nutritional Asmnt/Malnutr-PDOC - Dietary Evaluation Malnutrition Findings (Please click <Entered> for more info): Nutritional Asmnt/Malnutrition Start: 08/22/16 15: 48 Text: Status: Complete Freq: Document 08/22/16 15:48 GSUN (Rec: 08/22/16 15:59 GSUN [id number]) Nutritional Asmnt/Malnutrition Patient General Information Nutritional Screening High Risk Screening Diagnosis Reason for visit: psychosis NOS Pertinent Medical Hx/Surgical Hx HTN, COPD, adult FTT, HTN, DM2 , dysphagia, unsteady gait Subjective Information 81 year old male from SNF. Pt seen asleep in kyler chair in rec room, unable to be woken up. Per nursing staff, pt is confused. Spoke to FRONT END TECHNICIAN in rec room, FRONT END TECHNICIAN stated pt is asleep as pt has just recievd medications, otherwise pt noted with good appetite and no nutritional concerns at this time. Pt appeared nourisehd for age, no severe wasting noted. Avg PO intake 75-100% of meals since adm. Current Diet Order/ Nutrition Support [id number] Pertinent Medications Dulcolax, Vitamin D3, Iron, Novolog, Levemir, Cephulac, MOM, Vitamin B Complex W/ Vitamin C Pertinent Labs 08/20: BUN 32H, creatinine 1.8H , glucose 267H, A1c 7.5H POC glucose 103-201 since adm Nutritional Hx/Data Height 5 ft 6 in Height (Calculated Centimeters) 167.6 Current Weight (lbs) 155 lb Weight (Calculated Kilograms) 70.3 Weight (Calculated Grams) 34874.8 [place] Body Weight 142 Weight Status Approriate GI Symptoms Usual diet at home [facility] soft, CHRIS, CCHO Skin Integrity/Comment: Ronald Toribio. 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 Current %PO Good (75-100%) Estimated Nutritional Goals BEE in Kcals: Using Current wt Calories/Kcals/Kg CBW 155lb/70.5kg Kcals Calculated 1763-2115kcal (25-30kcal/kg) Protein: Using Current wt Protein Calculated 71g (1g/kg) Fluid: ml 1763-2115ml (1ml/kcal) Nutritional Problem 1. Problem Problem Altered nutrition related laboratory values related to Etiology DM aeb Signs/Symptoms: A1c 7.5, glucose 267 on adm Intervention/Recommendation Comments 1. Recommend [id number] CHRIS. 2. Avg PO intake is adequate. Expected Outcomes/Goals Expected Outcomes/Goals 1. PO intake continue to meet at least 75% of estimated nutritional needs.
[2016-08-30] MEDS: Fenofibrate, Micronized 134 mg Cap PO SCH (20:23)
[2016-08-30] MEDS: Insulin Detemir 100 units/mL 10mL Vial SUBQ SCH (20:27)
--- NOTE | 2016-08-31 04:44 | Progress Notes ---
DATE: 08/30/2016 Case was discussed with staff of the patient, reviewed records. The patient continues to be confused, unpredictable and impulsive, yelling and screaming at times. Continues to need redirection. He is compliant with medication with no side effects, no sedation, no nausea, no extrapyramidal symptoms. I will continue to work with the patient in group therapy, milieu therapy, adjust the medication as needed. JOB# [id number]
[2016-08-31] MEDS: INSULIN ASPART SLIDING SCALE 100 UNITS/ML UNIT SUBQ SCH ×2 (07:35→11:21)
[2016-08-31] MEDS: Albuterol Nebulizer 2.5mg/3mL HHN SCH (08:13)
[2016-08-31] MEDS: Dextromethorphan/Quinidine 20mg/10mg Cap PO SCH (09:22)
[2016-08-31] MEDS: Ferrous Sulfate 325 MG TAB PO SCH (09:22)
[2016-08-31] MEDS: Vitamin B Complex w/Vitamin C Tab PO SCH (09:22)
[2016-08-31] MEDS: Lactulose 10 Gm/15 mL 30mL UDC PO SCH (09:24)
--- NOTE | 2016-08-31 13:36 | Internal Medicine Prog Note ---
Internal Medicine Subjective - Subjective Service Date: 08/31/16 Patient is:: awake, verbal, interactive Per staff patient has:: no adverse event, confused, tolerating meds Internal Medicine Objective - Results Result Diagrams: 08/20/16 19:36 08/20/16 19:36 Recent Labs: Laboratory Last Values WBC 8.8 Th/cmm (4.8-10.8) 08/20/16 19:36 RBC 3.31 Mil/cmm (3.80-5.80) L 08/20/16 19:36 Hgb 9.8 gm/dL (12.6-17.4) L 08/20/16 19:36 Hct 29.1 % (39.0-49.0) L 08/20/16 19:36 MCV 88.0 fl (80-99) 08/20/16 19:36 MCH 29.5 pg (27.0-31.0) 08/20/16 19:36 MCHC Differential 33.5 pg (28.0-36.0) 08/20/16 19:36 RDW 13.5 % (11.5-20.0) 08/20/16 19:36 Plt Count 260 Th/cmm (150-400) 08/20/16 19:36 MPV 8.7 fl 08/20/16 19:36 Neutrophils % 59.6 % (40.0-80.0) 08/20/16 19:36 Lymphocytes % 27.0 % (20.0-50.0) 08/20/16 19:36 Monocytes % 8.8 % (2.0-10.0) 08/20/16 19:36 Eosinophils % 4.2 % (0.0-5.0) 08/20/16 19:36 Basophils % 0.4 % (0.0-2.0) 08/20/16 19:36 Sodium 128 mEq/L (136-145) L 08/20/16 19:36 Potassium 4.4 mEq/L (3.5-5.1) 08/20/16 19:36 Chloride 101 mEq/L (98-107) 08/20/16 19:36 Carbon Dioxide 26.5 mEq/L (21.0-31.0) 08/20/16 19:36 Anion Gap 4.9 (7.0-16.0) L 08/20/16 19:36 BUN 32 mg/dL (7-25) H 08/20/16 19:36 Creatinine 1.8 mg/dL (0.7-1.3) H 08/20/16 19:36 Est GFR ( Amer) TNP 08/20/16 19:36 Est GFR (Non-Af Amer) TNP 08/20/16 19:36 BUN/Creatinine Ratio 17.8 08/20/16 19:36 Glucose 267 mg/dL (70-105) H 08/20/16 19:36 POC Glucose 210 MG/DL (70 - 105) H 08/31/16 11:10 Hemoglobin A1c % 7.5 % (4.0-6.0) H 08/20/16 19:36 Calcium 8.7 mg/dL (8.6-10.3) 08/20/16 19:36 Total Bilirubin 0.2 mg/dL (0.3-1.0) L 08/20/16 19:36 AST 14 U/L (13-39) 08/20/16 19:36 ALT 11 U/L (7-52) 08/20/16 19:36 Alkaline Phosphatase 80 U/L (34-104) 08/20/16 19:36 Total Protein 6.7 gm/dL (6.0-8.3) 08/20/16 19:36 Albumin 3.4 gm/dL (4.2-5.5) L 08/20/16 19:36 Globulin 3.3 gm/dL 08/20/16 19:36 Albumin/Globulin Ratio 1.0 (1.0-1.8) 08/20/16 19:36 Triglycerides 139 mg/dL (<150) 08/20/16 19:36 Cholesterol 108 mg/dL (<200) 08/20/16 19:36 LDL Cholesterol Direct 64 mg/dL (75-193) L 08/20/16 19:36 HDL Cholesterol 37 mg/dL (23-92) 08/20/16 19:36 TSH 1.57 uIU/ml (0.34-5.60) 08/20/16 19:36 Urine Source CLEAN C 08/20/16 20:00 Urine Color YELLOW 08/20/16 20:00 Urine Clarity CLEAR (CLEAR) 08/20/16 20:00 Urine pH 5.5 08/20/16 20:00 Ur Specific [place] 1.025 (1.005-1.030) 08/20/16 20:00 Urine Protein 100 mg/dL (NEGATIVE) H 08/20/16 20:00 Urine Glucose (UA) NEGATIVE mg/dL (NEGATIVE) 08/20/16 20:00 Urine Ketones TRACE mg/dL (NEGATIVE) 08/20/16 20:00 Urine Blood NEGATIVE (NEGATIVE) 08/20/16 20:00 Urine Nitrate NEGATIVE (NEGATIVE) 08/20/16 20:00 Urine Bilirubin NEGATIVE (NEGATIVE) 08/20/16 20:00 Urine Urobilinogen 0.2 E.U./dL (0.2 - 1.0) 08/20/16 20:00 Ur Leukocyte Esterase NEGATIVE (NEGATIVE) 08/20/16 20:00 Urine RBC 0-1 /hpf (0-5) 08/20/16 20:00 Urine WBC 2-5 /hpf (0-5) H 08/20/16 20:00 Ur Epithelial Cells FEW /lpf (FEW) 08/20/16 20:00 Urine Bacteria FEW /hpf (NONE SEEN) 08/20/16 20:00 Salicylates < 25.0 mg/L (30.0-100.0) L 08/20/16 19:36 Urine Opiates Screen NEGATIVE (NEGATIVE) 08/20/16 20:00 Urine Methadone Screen NEGATIVE (NEGATIVE) 08/20/16 20:00 Acetaminophen < 10.0 ug/mL (10.0-30.0) L 08/20/16 19:36 Ur Barbiturates Screen NEGATIVE (NEGATIVE) 08/20/16 20:00 Ur Tricyclics Screen NEGATIVE (NEGATIVE) 08/20/16 20:00 Ur Phencyclidine Scrn NEGATIVE (NEGATIVE) 08/20/16 20:00 Amphetamines Screen NEGATIVE (NEGATIVE) 08/20/16 20:00 U Methamphetamines Scrn POSITIVE (NEGATIVE) H 08/20/16 20:00 U Benzodiazepines Scrn POSITIVE (NEGATIVE) H 08/20/16 20:00 U Cocaine Metab Screen NEGATIVE (NEGATIVE) 08/20/16 20:00 U Cannabinoids Screen NEGATIVE (NEGATIVE) 08/20/16 20:00 Ethyl Alcohol < 10 mg/dL (0-10) 08/20/16 19:36 RPR NONREACTIVE (NONREACTIVE) 08/20/16 19:36 - Physical Exam Vitals and I&O: Vital Signs Temp 97.2 F 08/31/16 06:32 Pulse 85 08/31/16 09:23 Resp 18 08/31/16 08:13 BP 144/82 08/31/16 09:23 Pulse Ox 98 08/31/16 08:13 Intake & Output 08/30/16 08/31/16 08/31/16 18:59 06:59 18:59 Intake Total 200 Balance 200 Intake: Oral 200 Other: # Voids 2 # Bowel Movements 1 Active Medications: Current Medications Acetaminophen (Tylenol) 650 mg PO Q4HR PRN PRN Reason: MILD PAINAND TEMP >101F Stop: 10/20/16 00:14 Last Admin: 08/21/16 14:53 Dose: 650 mg Albuterol Sulfate (Albuterol 2.5mg/3ml Neb Ud) 2.5 mg HHN BID [facility] Stop: 10/21/16 08:59 Last Admin: 08/31/16 08:13 Dose: 2.5 mg Albuterol/Ipratropium (Duoneb Neb) 3 ml HHN Q4HR PRN PRN Reason: Shortness of Breath or Wheeze Stop: 10/20/16 00:14 Last Admin: 08/29/16 19:31 Dose: 3 ml Amlodipine Besylate (Norvasc) 5 mg PO DAILY [facility] Stop: 10/20/16 08:59 Last Admin: 08/31/16 09:22 Dose: 5 mg Aspirin (Ecotrin) 81 mg PO DAILY [facility] Stop: 10/20/16 08:59 Last Admin: 08/31/16 09:24 Dose: 81 mg Bisacodyl (Dulcolax 5 Mg Ec Tab) 10 mg PO DAILY PRN PRN Reason: Constipation Stop: 10/20/16 00:14 Cholecalciferol (Vitamin D3) 1,000 iu PO DAILY [facility] Stop: 10/20/16 08:59 Last Admin: 08/31/16 09:24 Dose: 1,000 iu Dextromethorphan/Quinidine (Nuedexta 20mg-10mg) 1 cap PO BID [facility] Stop: 10/20/16 08:59 Last Admin: 08/31/16 09:22 Dose: 1 cap Divalproex Sodium (Depakote Sprinkle) 500 mg PO DAILY ALLEN PRN Reason: Protocol Stop: 10/22/16 08:59 Last Admin: 08/31/16 09:22 Dose: 500 mg Donepezil HCl (Aricept) 10 mg PO HS [facility] Stop: 10/20/16 20:59 Last Admin: 08/30/16 20:23 Dose: 10 mg Famotidine (Pepcid) 20 mg PO BID ALLEN Stop: 10/20/16 08:59 Last Admin: 08/31/16 09:24 Dose: 20 mg Fenofibrate (Tricor) 134 mg PO HS [facility] Stop: 10/21/16 20:59 Last Admin: 08/30/16 20:23 Dose: 134 mg Ferrous Sulfate (Iron) 325 mg PO DAILY [facility] Stop: 10/20/16 08:59 Last Admin: 08/31/16 09:22 Dose: 325 mg Insulin Aspart (Novolog Insulin Sliding Scale) 0 units SUBQ ACHS ALLEN PRN Reason: Protocol Stop: 10/20/16 07:29 Last Admin: 08/31/16 11:21 Dose: 4 units Insulin Detemir (Levemir Insulin) 8 units SUBQ HS [facility] Stop: 10/27/16 15:53 Last Admin: 08/30/16 20:27 Dose: 8 unit Lactulose (Cephulac) 20 gm PO BID [facility] Stop: 10/20/16 08:59 Last Admin: 08/31/16 09:24 Dose: 20 gm Lorazepam (Ativan) 1 mg PO Q6H PRN; Protocol PRN Reason: Anxiety Stop: 10/22/16 14:28 Last Admin: 08/28/16 21:27 Dose: 1 mg Magnesium Hydroxide (Milk Of Magnesia) 30 ml PO HS PRN PRN Reason: Constipation Stop: 10/20/16 00:14 Memantine (Namenda) 10 mg PO BID [facility] Stop: 10/20/16 08:59 Last Admin: 08/31/16 09:24 Dose: 10 mg Metoprolol Tartrate (Lopressor) 25 mg PO DAILY [facility] Stop: 10/27/16 15:54 Last Admin: 08/31/16 09:23 Dose: 25 mg Risperidone (Risperdal) 2 mg PO HS ALLEN PRN Reason: Protocol Stop: 10/23/16 20:59 Last Admin: 08/30/16 20:23 Dose: 2 mg Risperidone (Risperdal) 1 mg PO DAILY ALLEN PRN Reason: Protocol Stop: 10/23/16 08:59 Last Admin: 08/31/16 09:22 Dose: 1 mg Vitamin B Complex/Vit C/Folic Acid (Vitamin B Complex W/Vitamin C) 1 tab PO DAILY ALLEN Stop: 10/20/16 08:59 Last Admin: 08/31/16 09:22 Dose: 1 tab General: alert HEENT: NC/AT, PERRLA Neck: Supple Lungs: CTAB Cardiovascular: RRR, Normal S1, Normal S2, without murmur Abdomen: soft, non-tender, non-distended Extremities: clear Neurological: no change Internal Medicine Assmt/Plan - Assessment Assessment: HTN DM-2 DYSPHAGIA 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 AGITATION DEMENTIA COPD - Plan Plan: MONITOR GLUCOSE FALL PRECAUTIONS MONITOR BP CONTINUE CURRENT PLAN OF CARE Nutritional Asmnt/Malnutr-PDOC - Dietary Evaluation Malnutrition Findings (Please click <Entered> for more info): Nutritional Asmnt/Malnutrition Start: 08/22/16 15: 48 Text: Status: Complete Freq: Document 08/22/16 15:48 GSUN (Rec: 08/22/16 15:59 GSUN [id number]) Nutritional Asmnt/Malnutrition Patient General Information Nutritional Screening High Risk Screening Diagnosis Reason for visit: psychosis NOS Pertinent Medical Hx/Surgical Hx HTN, COPD, adult FTT, HTN, DM2 , dysphagia, unsteady gait Subjective Information 81 year old male from SNF. Pt seen asleep in kyler chair in rec room, unable to be woken up. Per nursing staff, pt is confused. Spoke to PACKAGING MECHANIC in rec room, PACKAGING MECHANIC stated pt is asleep as pt has just recievd medications, otherwise pt noted with good appetite and no nutritional concerns at this time. Pt appeared nourisehd for age, no severe wasting noted. Avg PO intake 75-100% of meals since adm. Current Diet Order/ Nutrition Support [id number] Pertinent Medications Dulcolax, Vitamin D3, Iron, Novolog, Levemir, Cephulac, MOM, Vitamin B Complex W/ Vitamin C Pertinent Labs 08/20: BUN 32H, creatinine 1.8H , glucose 267H, A1c 7.5H POC glucose 103-201 since adm Nutritional Hx/Data Height 5 ft 6 in Height (Calculated Centimeters) 167.6 Current Weight (lbs) 155 lb Weight (Calculated Kilograms) 70.3 Weight (Calculated Grams) 77539.8 [place] Body Weight 142 Weight Status Approriate GI Symptoms Usual diet at home [facility] soft, CHRIS, CCHO Skin Integrity/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 Current %PO Good (75-100%) Estimated Nutritional Goals BEE in Kcals: Using Current wt Calories/Kcals/Kg CBW 155lb/70.5kg Kcals Calculated 1763-2115kcal (25-30kcal/kg) Protein: Using Current wt Protein Calculated 71g (1g/kg) Fluid: ml 1763-2115ml (1ml/kcal) Nutritional Problem 1. Problem Problem Altered nutrition related laboratory values related to Etiology DM aeb Signs/Symptoms: A1c 7.5, glucose 267 on adm Intervention/Recommendation Comments 1. Recommend [id number] CHRIS. 2. Avg PO intake is adequate. Expected Outcomes/Goals Expected Outcomes/Goals 1. PO intake continue to meet at least 75% of estimated nutritional needs.
--- NOTE | 2016-09-05 20:34 | Discharge Summary ---
DATE OF DISCHARGE: 08/31/2016 FINAL DIAGNOSIS/PRIMARY DIAGNOSIS: Unspecified psychosis. SECONDARY DIAGNOSIS: Dementia, moderate, with psychotic features. REASON FOR HOSPITALIZATION: The patient was admitted to the hospital because of agitation and aggressive behavior and he came from . HOSPITAL COURSE: The patient continued to be agitated and restless. The patient also was confused and he needed lots of redirections. The patient also was argumentative and he wanted to be left alone and was rambling on [place] language. Also was showing minimum interaction with others. On the other hand, the patient was compliant with taking his medications with no side effects of medications. The patient was calmer. The patient was accepted by and discharged there. PHYSICAL EXAMINATION: The patient showed no major medical problems. AFTER DISCHARGE PLANS: The patient discharged from the hospital and plan to continue his treatment as an outpatient. EXPECTED OUTCOME AFTER DISCHARGE: Fair if the patient continues to take his psychotropic medications. JOB# [id number]
== END 2016-08-31 15:30 | disposition home or self-care (01) | DRG 885 ==
LOC: ER 19:12 → GERO 20:35
PROVIDERS: ADMIT Psychiatry & Neurology Psychiatry; ATTEND Psychiatry & Neurology Psychiatry
DX: F29 Unspecified psychosis not due to a substance or known physiological condition (principal); F03.91 Unspecified dementia, unspecified severity, with behavioral disturbance; E11.22 Type 2 diabetes mellitus with diabetic chronic kidney disease; J44.9 Chronic obstructive pulmonary disease, unspecified; R13.10 Dysphagia, unspecified; R62.7 Adult failure to thrive; F20.9 Schizophrenia, unspecified; K21.9 Gastro-esophageal reflux disease without esophagitis; I12.9 Hypertensive chronic kidney disease with stage 1 through stage 4 chronic kidney disease, or unspecified chronic kidney disease; F31.9 Bipolar disorder, unspecified; N18.3 Chronic kidney disease, stage 3 (moderate); E11.649 Type 2 diabetes mellitus with hypoglycemia without coma; Z79.82 Long term (current) use of aspirin; Z79.4 Long term (current) use of insulin; Z83.3 Family history of diabetes mellitus
CPT/HCPCS: 36415-UA; 80053-TC; 80061-TC; 80307; 80320-TC; 80329-TC; 81001-TC; 82948-90; 83036-90; 84443-TC; 85025-TC; 86592-TC; 93005; 94640; 94760; J1815; J7613; Z7610

== ENCOUNTER 2017-04-07 21:59 | Inpatient (IN) | payer MEDICARE, OTHER ==
[2017-04-07 22:42] LABS: % BASOPHILS 0.6 % (0.0-2.0); % LYMPHOCYTES 19.1 % (20.0-50.0); % MONOCYTES 7.8 % (2.0-10.0); % NEUTROPHILS 70.5 % (40.0-80.0); BASOPHILE ABSOLUTE 0.1 Th/cumm (0-0.2); EOSINOPHILE ABSOLUTE 0.2 Th/cmm (0.1-0.4); LYMPHOCYTE ABSOLUTE 1.7 Th/cmm (1.5-3.0); MEAN CELL VOLUME 85.2 fl (80-99); MEAN CORPUSCULAR HEMOGLOBIN 28.1 pg (27.0-31.0); MEAN CORPUSCULAR HGB CONC 32.9 pg (28.0-36.0); MEAN PLATELET VOLUME 8.6 fl; MONOCYTE ABSOLUTE 0.7 Th/cmm (0.3-1.0); NEUTROPHILE ABSOLUTE 6.1 Th/cmm (1.8-8.0); PLATELET COUNT 288 Th/cmm (150-400); RED BLOOD COUNT 3.92 Mil/cmm (3.80-5.80); RED CELL DISTRIBUTION WIDTH 14.2 % (11.5-20.0); WHITE BLOOD COUNT 8.8 Th/cmm (4.8-10.8)
[2017-04-07 23:06] LABS: ALB/GLOB RATIO 0.9 (1.0-1.8); ALBUMIN 3.8 gm/dL (4.2-5.5); ALKALINE PHOSPHATASE 129 U/L (34-104); ANION GAP 9.8 (7.0-16.0); BILIRUBIN,TOTAL 0.3 mg/dL (0.3-1.0); BUN - UREA NITROGEN 32 mg/dL (7-25); CALCIUM SERUM 9.6 mg/dL (8.6-10.3); CARBON DIOXIDE 27.4 mEq/L (21.0-31.0); CHLORIDE 100 mEq/L (98-107); CHOLESTEROL 119 mg/dL (<200); CREATININE - SERUM 1.7 mg/dL (0.7-1.3); GLUCOSE 316 mg/dL (70-105); HDL -HIGH DENSITY LIPOPROTEIN 47 mg/dL (23-92); POTASSIUM SERUM 4.2 mEq/L (3.5-5.1); SGOT 10 U/L (13-39); SGPT/ALT 9 U/L (7-52); SODIUM SERUM 133 mEq/L (136-145); TOTAL PROTEIN,SERUM 7.9 gm/dL (6.0-8.3); TRIGLYCERIDES 98 mg/dL (<150)
[2017-04-07 23:09] LABS: BILIRUBIN,DIRECT 0.01 mg/dL (0.0-0.2)
[2017-04-07 23:12] LABS: HEMATOCRIT 33.4 % (41.0-60)
[2017-04-08 01:56] VITALS: BP 143/73
[2017-04-08] MEDS ORDERED: Magnesium Hydroxide (MOM) 30 mL UDC PO PRN (02:08)
[2017-04-08] MEDS ORDERED: Maalox 30 mL Cup PO PRN (02:08)
--- NOTE | 2017-04-08 02:37 | Transfer Summary ---
DATE OF TRANSFER: 04/07/2017 MEDICAL EMERGENCY ROOM EVALUATION AND TREATMENT The patient came here for psychiatric evaluation to see if he has any medical conditions, so if there is no medical problem then the patient could be sent to a psychiatric hooks. The patient is allergic to rivaroxaban. The patient came from [facility], the telephone number is [phone]. REASON FOR SENDING HERE: The patient is confused, agitated, striking out, yelling, screaming, hitting the staff and for psychosis behavior, the patient was referred here to be admitted to the Psych hooks. It has another page, the reason was written for psych evaluation regarding screaming, yelling, urinating on the floor in the hallway in front of everyone and erratic behavior. The pain level is 3/10 as done by the nursing over at the care home and location of pain, the patient has on the hands. HISTORY OF PRESENT ILLNESS: The patient's chief complaint, the patient is not in a position to give or mention any complaint or give any review of systems. On physical examination, the patient appears to be of the stated age of 81. He is not aware where he is. He does speak Stateless and just talks a few words here and there when I asked him. I know little Stateless only but we got some automatic lathe setter. The patient got a chest x-ray which was within normal limits. EKG was done which showed small inferior wall nondiagnostic Q-waves suggesting possibility of an old inferior wall CT and poor R-wave progression across the precordium. For anterior wall, I do not think there is any CT. Inferior wall, small Q-waves do not suggest for sure guaranteed or 100% CT but it is just a possibility. The patient's psychiatrist's name is Dr. Velasquez. The patient's medical doctor's name is Dr. Stevenson and the care program director of the Emergency Room was called. The patient's other diagnoses include; 1. 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 2. Long-term current use of insulin. 3. Anxiety disorder, unspecified. 4. Insomnia, unspecified. 5. Gastroesophageal reflux disease with esophagitis. 6. Hyperlipidemia. 7. Chronic obstructive lung disease, unspecified. 8. Anemia of chronic disease. 9. Dementia classified elsewhere without behavioral disturbances. The patient's primary physician is Dr. Kevin Cassidy whose office number is [phone], fax number is [phone]. His address is [address] [place] [address], [address], [place] [address]. Alternate physician is Dr. Vilma Lance was office number is [phone] and fax number [phone]. Address is [address] [place] [address]. [facility], his primary's phone number is [phone], fax number is [phone]. [place] of the pharmacy is [address] [place] [address]. Facility name [facility] in [facility] counter, in emergency to be contacted to Farzaneh Louie, Bettye Louie, and Ariel Leo. Other diagnosis that I read from ____ which says the patient has type 2 diabetes without complications, schizophrenia, muscle weakness, abnormal posture, difficulty in walking, Alzheimer unspecified, essential hypertension, chronic kidney disease stage 3. If I can find something else, I will give you some information for your help. The patient's last blood pressure recorded in history and physical at other institution was found to be within normal limits 118/62. He has had one time history of dysphagia and the other writing is difficult to read. So I would leave it for the psychiatrist and the doctor in charge who knows the patient will continue with the patient. The patient for diabetes he was taking Levemir 25 units subcutaneous b.i.d. for diabetes mellitus type [address] Cass[address]. So that is the medication the patient is taking and diet is mechanical soft, CCHO, no added salt diet. The patient may have taken flu vaccine but we are not certain, between November and April. TB screening annually to be done. Otherwise, nothing new yet to be mentioned but let me see if I find it more, I can give you so make your life pleasant. The patient had at one point laryngeal closure management done in the past. Swallowing trial was done and the patient had taken breathing treatments. CURRENT MEDICATIONS: Include amlodipine, Aricept, aspirin, Ativan, bisacodyl, Depakote tablet, famotidine, ferrous sulfate, breathing treatment, and lactulose twice a day for constipation 20 gm plus the patient is getting metoprolol 1 tablet 25 mg once a day. I believe he should be better off getting more metoprolol tablet. The patient is taking Namenda tablet 10 mg, Risperdal 1 mg, Tricor, fenofibrate 134 mg, Tylenol, vitamin D3, vitamin B complex. PHYSICAL EXAMINATION: GENERAL: The patient appears to be awake, alert, oriented, comfortable, not in any acute cardiorespiratory distress. The patient appears to be of the stated age. The patient looks to be good is not in any acute distress. VITAL SIGNS: Stable. The last vital signs that came from the care home include 97.5 temperature, pulse of 83, respirations 20, blood pressure 150/90, saturation ____. HEENT: Conjunctivae are pink, sclerae white. Normal. Most of the hairs are lovelace. EXTREMITIES: A 1+ edema over the legs. No deep vein thrombophlebitis. No cyanosis. BACK: The area around the buttock is slightly reddish, arash drawn by the nurse from the care home and she has also mentioned the patient understands only Stateless and has some erratic behaviors. NECK: Jugular venous pressure is essentially within normal limits. Supple. There is no Kernig sign. No Brudzinski signs. No lymph node enlargement. No meningeal signs. No evidence of any TB, cancer, ulcers, etc., are noted. There is no evidence of any congestive heart failure or cardiac tamponade or any cardiorespiratory distress. There is known hair. LUNGS: No history of any pneumonia or TB but history of COPD is mentioned as a diagnosis. Anemia also is mentioned as a diagnosis. The patient does not give more history, so the patient's diagnosis of dementia and Alzheimer disease, etc., has been made. The patient's general exam otherwise is benign, negative. He was trying to clear his throat. He just wanted to speak to somebody so he is screaming right now. Benign, negative. CHEST: Clear. Trachea being central. Fairly good air entry in both lungs without any rales, rhonchi, or bronchial breathing. ABDOMEN: Soft, benign and negative. Liver, spleen not enlarged. No free fluid in the abdominal cavity. CENTRAL NERVOUS SYSTEM: The patient has history of psychosis, history of abnormal behavior and erratic behavior in the care home and voiding in front of nursing staff, etc., and increased confusion, agitation and striking the staff and yelling, screaming. HEART: Normal heart sounds. PMI is located in the fifth intercostal space midclavicular line. S1, S2 are normal. Fourth heart sound is normal. No pacemaker, no ICD device. No other device. No abnormal chest wall is seen. Costovertebral angle is normal. Blood cancer disease is absent. Other 12 system disease is negative, constitutional disease is negative. In conclusion, the patient is sent here because of unspecified psychosis not due to substance or known physiological abuse and the patient has #2 diabetes mellitus, #3 hypertension. The patient was taking amlodipine 5 mg a day and 25 mg of Lopressor a day. OTHER DIAGNOSES: Include the patient has dementia, classified elsewhere without behavioral disturbances. Other diagnoses to complete this history include the patient has schizophrenia, muscle weakness, abnormal posture, difficulty in walking, essential hypertension, chronic kidney disease stage 3. I will send the things for a lab workup to be checked out. EKG and chest x-ray are enough and I am satisfied with that. If the lab comes out okay, the patient will be transferred to psych facility. JOB# [id number]
[2017-04-08] MEDS: INSULIN ASPART SLIDING SCALE 100 UNITS/ML UNIT SUBQ SCH ×4 (07:01→21:05)
--- NOTE | 2017-04-08 08:20 | Diagnostic Imaging Report ---
Portable chest x-ray HISTORY: Cough There is a poor inspiration. The heart size appears somewhat generous. No focal pulmonary processes. IMPRESSION: 1. Allowing for a poor inspiration, no acute focal pulmonary processes
--- NOTE | 2017-04-08 13:28 | History & Physical ---
ADMIT DATE: 04/08/[address] Velasquez. IDENTIFYING INFORMATION: The patient is an 81-year-old male. CHIEF COMPLAINT: "I am in retirement." HISTORY OF PRESENT ILLNESS: The patient was referred for admission because of psychosis. The patient had no idea why he is here. He believes he is in retirement. He believes he lives with his in [place]. He is unpredictable, impulsive be any early complaint pain. I talked to him through a blood bank laboratory professional. Denies substance abuse problem. He denies any auditory or visual hallucinations. He is a very poor historian, does not know the date, where he is, why he is here. PAST PSYCHIATRIC HISTORY: The patient is a poor historian. He has been on Depakote, Risperdal, and Ativan; however, he has no idea. He is on those medications. The patient denies prior hospitalization; however, he is not a reliable historian. He is demented. MEDICATIONS: He is on Namenda 10 mg twice a day, Risperdal 1 mg twice daily. The patient is not aware. He is on taking any psychotropic medications. MEDICAL HISTORY: The patient is allergic to RIVAROXABAN. The patient is also on Aricept. He is also on Depakote Sprinkles 500 mg daily. FAMILY AND SOCIAL HISTORY: The patient reported that he is that he lives with his , but I am not sure that is true. He said he has 3 boys and four girls and they are all adults. He reports he used to work, unable to explain what he did for living. . Denies substance abuse. He denies family psychotic disorder with a poor historian. MENTAL STATUS EXAMINATION: The patient is appropriately dressed and well groomed. He was dressed in hospital gown. He is alert. He was cooperative, but yet a poor historian, does not know the date, where he is, why he is here. He denies any current intent to harm himself or anybody. He denies any hallucination, paranoia, but he is a very poor historian. He is easily agitated. His long and short term memory is poor. The patient believes he is 78, in reality he is 81. He does know the president of [facility]. His insight and judgment is impaired. IMPRESSION: AXIS I: Bipolar disorder, mixed. PSYCHIATRIC DIAGNOSIS: Dementia. INITIAL TREATMENT PLAN: The patient will be continued with medication. We will do group therapy, milieu therapy, and individual therapy. ESTIMATED LENGTH OF STAY: 3-7 days. DISCHARGE CRITERIA: Decreasing agitation. Feeling better after discharge outpatient treatment. [facility]# [id number]
[2017-04-08] MEDS: Lactulose 10 Gm/15 mL 30mL UDC PO SCH (16:28)
--- NOTE | 2017-04-08 16:50 | History & Physical ---
ADMIT DATE: 04/08/2017 CHIEF COMPLAINT: Admitted for inpatient psych. HISTORY OF PRESENT ILLNESS: This is an 80-year-old male with history of diabetes, Alzheimer dementia, hypertension, chronic renal insufficiency, and gait instability, admitted from the nursing facility, under the service of Dr. Velasquez. The patient is a very poor historian, yelling, screaming. PAST MEDICAL HISTORY: As mentioned in history of present illness. PAST SURGICAL HISTORY: Some oral surgery in the past and not able to specify. ALLERGIES: Xarelto. MEDICATIONS: The patient is on Tylenol, albuterol, aspirin, vitamin D3 ____ insulin sliding scale, Tradjenta, Ativan, multivitamin, Risperdal, Depakote, Namenda, Aricept. FAMILY HISTORY: Noncontributory. SOCIAL HISTORY: The patient is a assisted, patient requiring 24-hour total care. REVIEW OF SYSTEMS: This is limited. Current mental state. We will try to obtain more detailed review of system on the date by the family members ____. PHYSICAL EXAMINATION: VITAL SIGNS: Blood pressure 120/76, respiration 20, pulse 66, temperature 98.0. GENERAL: Elderly male, appears stated age and in a Tina chair. NECK: Supple. No mass. LUNGS: Breath sounds, few rhonchi. HEART: Regular rate and rhythm. Systolic ejection murmur. ABDOMEN: Soft, globular. EXTREMITIES: Positive excoriations. LABORATORY DATA: WBC 20, hemoglobin 11, platelets 288. Sodium 133, potassium 4.2, BUN 32, creatinine 1.7, blood sugar 289. Troponin negative x 1. Albumin 3.8, Depakote 32. ASSESSMENT AND PLAN: Diabetes, dementia, Alzheimer's, hypertension, renal insufficiency, COPD, anemia, protein-calorie malnutrition, renal insufficiency. 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 Continue bronchodilator treatments. The patient medically clear. We will continue to follow. JOB# [id number]
[2017-04-08] MEDS: Insulin Detemir 100 units/mL 10mL Vial SUBQ SCH (17:05)
[2017-04-08 17:37] LABS: A1C % 12.8 % (4.0-6.0)
[2017-04-08] MEDS: Albuterol Nebulizer 2.5mg/3mL HHN SCH (20:16)
[2017-04-08] MEDS ORDERED: Non-Formulary Item 1 EA (Donepezil Hcl [Aricept] 10 MG) PO SCH (21:00)
[2017-04-08] MEDS: Fenofibrate, Micronized 134 mg Cap PO SCH (21:38)
[2017-04-09] MEDS: INSULIN ASPART SLIDING SCALE 100 UNITS/ML UNIT SUBQ SCH ×4 (06:31→21:29)
[2017-04-09] MEDS: Albuterol Nebulizer 2.5mg/3mL HHN SCH ×2 (06:39→19:29)
[2017-04-09] MEDS: Ferrous Sulfate 325 MG TAB PO SCH (08:38)
[2017-04-09] MEDS: Multivitamin w/ Minerals Tab PO SCH (08:38)
[2017-04-09] MEDS: Insulin Detemir 100 units/mL 10mL Vial SUBQ SCH ×2 (08:39→16:53)
[2017-04-09] MEDS: Lactulose 10 Gm/15 mL 30mL UDC PO SCH ×3 (08:39→16:28)
[2017-04-09] MEDS ORDERED: Vitamin E 1,000 IU Sgl PO SCH (09:00)
[2017-04-09] MEDS ORDERED: CHOLECALCIFEROL PO SCH (09:00)
--- NOTE | 2017-04-09 15:37 | Internal Medicine Prog Note ---
Internal Medicine Subjective - Subjective Patient seen and examined:: with staff, chart reviewed Patient is:: awake, verbal, interactive, kyler chair, agitated, confused Patient Complaints of:: unable to sleep Per staff patient has:: no adverse event, no episodes of fall, poor appetite, agitated, combative, tolerating meds Internal Medicine Objective - Results Result Diagrams: 04/07/17 22:20 04/07/17 22:20 Recent Labs: Laboratory Last Values WBC 8.8 Th/cmm (4.8-10.8) 04/07/17 22:20 RBC 3.92 Mil/cmm (3.80-5.80) 04/07/17 22:20 Hgb 11.0 gm/dL (12-16) L 04/07/17 22:20 Hct 33.4 % (41.0-60) L D 04/07/17 22:20 MCV 85.2 fl (80-99) 04/07/17 22:20 MCH 28.1 pg (27.0-31.0) 04/07/17 22:20 MCHC Differential 32.9 pg (28.0-36.0) 04/07/17 22:20 RDW 14.2 % (11.5-20.0) 04/07/17 22:20 Plt Count 288 Th/cmm (150-400) 04/07/17 22:20 MPV 8.6 fl 04/07/17 22:20 Neutrophils % 70.5 % (40.0-80.0) 04/07/17 22:20 Lymphocytes % 19.1 % (20.0-50.0) L 04/07/17 22:20 Monocytes % 7.8 % (2.0-10.0) 04/07/17 22:20 Eosinophils % 2.0 % (0.0-5.0) 04/07/17 22:20 Basophils % 0.6 % (0.0-2.0) 04/07/17 22:20 Sodium 133 mEq/L (136-145) L 04/07/17 22:20 Potassium 4.2 mEq/L (3.5-5.1) 04/07/17 22:20 Chloride 100 mEq/L (98-107) 04/07/17 22:20 Carbon Dioxide 27.4 mEq/L (21.0-31.0) 04/07/17 22:20 Anion Gap 9.8 (7.0-16.0) 04/07/17 22:20 BUN 32 mg/dL (7-25) H 04/07/17 22:20 Creatinine 1.7 mg/dL (0.7-1.3) H 04/07/17 22:20 Est GFR ( Amer) TNP 04/07/17 22:20 Est GFR (Non-Af Amer) TNP 04/07/17 22:20 BUN/Creatinine Ratio 18.8 04/07/17 22:20 Glucose 316 mg/dL (70-105) H 04/07/17 22:20 POC Glucose 289 MG/DL (70 - 105) H 04/07/17 23:01 Hemoglobin A1c % 12.8 % (4.0-6.0) H 04/07/17 22:20 Calcium 9.6 mg/dL (8.6-10.3) 04/07/17 22:20 Magnesium 2.0 mg/dL (1.9-2.7) 04/07/17 22:20 Total Bilirubin 0.3 mg/dL (0.3-1.0) 04/07/17 22:20 Direct Bilirubin 0.01 mg/dL (0.0-0.2) 04/07/17 22:20 AST 10 U/L (13-39) L 04/07/17 22:20 ALT 9 U/L (7-52) 04/07/17 22:20 Alkaline Phosphatase 129 U/L (34-104) H 04/07/17 22:20 Troponin I < 0.01 ng/mL (0.01-0.05) L 04/07/17 22:20 B-Natriuretic Peptide 57.9 pg/mL (5.0-100.0) 04/07/17 22:20 Total Protein 7.9 gm/dL (6.0-8.3) 04/07/17 22:20 Albumin 3.8 gm/dL (4.2-5.5) L 04/07/17 22:20 Globulin 4.1 gm/dL 04/07/17 22:20 Albumin/Globulin Ratio 0.9 (1.0-1.8) L 04/07/17 22:20 Triglycerides 98 mg/dL (<150) 04/07/17 22:20 Cholesterol 119 mg/dL (<200) 04/07/17 22:20 LDL Cholesterol Direct 63 mg/dL (75-193) L 04/07/17 22:20 HDL Cholesterol 47 mg/dL (23-92) 04/07/17 22:20 Free T4 1.22 ng/dL (0.82-1.77) 04/07/17 22:20 TSH 2.24 uIU/ml (0.34-5.60) 04/07/17 22:20 Valproic Acid 32.6 ug/mL (50.0-100.0) L 04/07/17 22:20 - Physical Exam Vitals and I&O: Vital Signs Temp 98 F 04/09/17 06:33 Pulse 74 04/09/17 11:16 Resp 18 04/09/17 11:16 BP 134/72 04/09/17 11:16 Pulse Ox 98 04/09/17 11:16 Intake & Output 04/08/17 04/09/17 04/09/17 18:59 06:59 18:59 Intake Total 1420 360 Output Total 1 Balance 1420 359 Intake: Oral 1420 360 Output: Stool 1 Other: # Voids 3 1 Active Medications: Current Medications Acetaminophen (Tylenol) 650 mg PO Q6HR PRN PRN Reason: MILD PAINAND TEMP >101F Stop: 06/07/17 15:25 Last Admin: 04/09/17 07:16 Dose: 650 mg Al Hydrox/Mg Hydrox/Simethicone (Maalox) 30 ml PO Q4HR PRN PRN Reason: GI DISTRESS Stop: 06/07/17 02:07 Albuterol Sulfate (Albuterol 2.5mg/3ml Neb Ud) 2.5 mg HHN BID [facility] Stop: 06/07/17 16:59 Last Admin: 04/09/17 06:39 Dose: 2.5 mg Amlodipine Besylate (Norvasc) 5 mg PO DAILY [facility] Stop: 06/08/17 08:59 Last Admin: 04/09/17 08:36 Dose: 5 mg Aspirin (Ecotrin) 81 mg PO DAILY [facility] Stop: 06/08/17 08:59 Last Admin: 04/09/17 08:38 Dose: 81 mg Bisacodyl (Dulcolax 5 Mg Ec Tab) 10 mg PO DAILY PRN PRN Reason: Constipation Stop: 06/07/17 15:25 Cholecalciferol (Vitamin D3) 1,000 iu PO DAILY [facility] Stop: 06/08/17 08:59 Last Admin: 04/09/17 08:38 Dose: 1,000 iu Divalproex Sodium (Depakote Sprinkle) 500 mg PO DAILY [facility] PRN Reason: Protocol Stop: 06/08/17 08:59 Last Admin: 04/09/17 08:38 Dose: 500 mg Donepezil HCl (Aricept) 10 mg PO HS [facility] Stop: 06/07/17 20:59 Last Admin: 04/08/17 21:38 Dose: 10 mg Famotidine (Pepcid) 20 mg PO BID [facility] Stop: 06/07/17 16:59 Last Admin: 04/09/17 08:38 Dose: 20 mg Fenofibrate (Tricor) 134 mg PO HS [facility] Stop: 06/07/17 20:59 Last Admin: 04/08/17 21:38 Dose: 134 mg Ferrous Sulfate (Iron) 325 mg PO DAILY [facility] Stop: 06/08/17 08:59 Last Admin: 04/09/17 08:38 Dose: 325 mg Insulin Aspart (Novolog Insulin Sliding Scale) 0 units SUBQ ACHS [facility] PRN Reason: Protocol Stop: 06/07/17 07:29 Last Admin: 04/09/17 11:12 Dose: 11 units Insulin Detemir (Levemir Insulin) 25 units SUBQ BID [facility] PRN Reason: Protocol Stop: 06/07/17 16:59 Last Admin: 04/09/17 08:39 Dose: 25 units Lactulose (Cephulac) 20 gm PO BID [facility] Stop: 06/07/17 16:59 Last Admin: 04/09/17 08:47 Dose: Not Given Lorazepam (Ativan) 0.5 mg PO Q6HR PRN; Protocol PRN Reason: Anxiety Stop: 06/07/17 15:25 Last Admin: 04/08/17 16:28 Dose: 0.5 mg Magnesium Hydroxide (Milk Of Magnesia) 30 ml PO HS PRN PRN Reason: Constipation Memantine (Namenda) 10 mg PO BID [facility] Stop: 06/07/17 16:59 Last Admin: 04/09/17 08:38 Dose: 10 mg Metoprolol Tartrate (Lopressor) 25 mg PO DAILY [facility] Stop: 06/08/17 08:59 Last Admin: 04/09/17 08:37 Dose: 25 mg Risperidone (Risperdal) 1 mg PO DAILY [facility] PRN Reason: Protocol Stop: 06/08/17 08:59 Last Admin: 04/09/17 08:38 Dose: 1 mg Zolpidem Tartrate (Ambien) 5 mg PO HS PRN PRN Reason: Insomnia Stop: 06/07/17 02:07 General: demented HEENT: NC/AT, PERRLA, thinning hair, poor dentition Neck: Supple Lungs: CTAB Cardiovascular: RRR, Normal S1, Normal S2, with murmur Abdomen: soft, non-tender, globular, non-distended, positive bowel sound Extremities: excoriation, contracture Neurological: disorganized Internal Medicine Assmt/Plan - Assessment Assessment: Diabetes, dementia, Alzheimer's, hypertension, renal insufficiency, COPD, anemia, protein-calorie malnutrition, renal insufficiency. 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 Continue bronchodilator treatments. Nutritional Asmnt/Malnutr-PDOC - Dietary Evaluation Malnutrition Findings (Please click <Entered> for more info): Nutritional Asmnt/Malnutrition Start: 04/08/17 11: 03 Text: Status: Complete Freq: Document 04/08/17 11:03 JOSE R (Rec: 04/08/17 11:33 JOSE R PAUL- [email or web address]) Nutritional Asmnt/Malnutrition Patient General Information Nutritional Screening Consult Diagnosis Psychosis Pertinent Medical Hx/Surgical Hx Psychosis, Schizophrenia, insomnia, anxiety, dementia, alzhemers, DM2, HTN, hyperlipidemia, CKD stage 3, anemia, COPD, gerd, muscle weakness, abnormal posture. Subjective Information patient was admitted from SNF due to altered mental status, increased confusion, agitation , striking out, hitting, screaming, yelling behavior, urinating in hallway in front of everyone. Patient is Citizen Of [place] speaking. Per nursing notes, patient with missing natural teeth. Current Diet Order/ Nutrition Support Mechanical soft Chopped, CHRIS 60 gm CCHO Pertinent Medications MVI, B complex with C, Vitamin D3, Levemir, lactulose, iron Pertinent Labs (04/07) Na 133, BUN 32, Cr 1.7, Glucose 316, 289 Nutritional Hx/Data Height 1.57 m Height (Calculated Centimeters) 157.5 Current Weight (lbs) 74.843 kg Weight (Calculated Kilograms) 74.8 Weight (Calculated Grams) 56133.7 Sheridan Body Weight 118 % Sheridan Body Weight 139 Body Mass Index (BMI) 30.2 Recent Weight Change No Weight Status Obese GI Symptoms GI Symptoms None Last BM prior to admission Difficult in: None Food Allergies No Cultural/Ethnic/[employer]ybeterian Belief none indicated Usual diet at home unknown Skin Integrity/Comment: Ronald 12, coccyx with open area and dry, reddened to lumbar area, left inner thigh with rash, skin discoloration to right lower quadrant, scalp dry. LE edema. Estimated Nutritional Goals BEE in Kcals: Adj wt of IBW Calories/Kcals/Kg 25-30 kcal/kg (using Adj weight 59kg) Kcals Calculated 7183-2063 kcal/day Protein: Adj wt of IBW Protein g/k-1.2 gm/kg (adj wt 59kg) Protein Calculated 60-70 gm/day Fluid: ml 2559-3568 ml/day (1 ml/kcal) Nutritional Problem 1. Problem Problem Altered nutrition related lab values related to Etiology uncontrolled hyperglycemia and electrolyte imbalance aeb Signs/Symptoms: Glucose 316, 289, Ba 133 Intervention/Recommendation Comments Continue 60 gm CCHO, CHRIS, mechanical soft chopped diet as tolerated by patient. MD to continue to modify insulin regimen for optimal glycemic control. Consider Fluid restriction due to hyponatremia. Expected Outcomes/Goals Expected Outcomes/Goals oral intake to meet >75% of estimated needs, weight stable or trend toward ideal body weight, nutrition related labs WNL F/U MR 04/11-
[2017-04-09] MEDS: Fenofibrate, Micronized 134 mg Cap PO SCH (21:28)
--- NOTE | 2017-04-09 23:21 | Progress Notes ---
DATE: 04/09/[address] Velasquez. Case was discussed with staff of patient, reviewed records. The patient continues to have poor insight, unpredictable, impulsive, needing redirection, loud, very poor insight. He is compliant with the medication with no side effects, no sedation, no nausea, no extrapyramidal symptoms. He is demented, confused. We will continue to work with the patient in group therapy, milieu therapy, adjust medication as needed. JOB# [id number]
[2017-04-10] MEDS: INSULIN ASPART SLIDING SCALE 100 UNITS/ML UNIT SUBQ SCH ×4 (06:36→20:36)
[2017-04-10] MEDS: Albuterol Nebulizer 2.5mg/3mL HHN SCH ×2 (06:42→20:20)
[2017-04-10] MEDS: Multivitamin w/ Minerals Tab PO SCH (09:42)
[2017-04-10] MEDS: Lactulose 10 Gm/15 mL 30mL UDC PO SCH ×2 (09:42→16:36)
[2017-04-10] MEDS: Ferrous Sulfate 325 MG TAB PO SCH (09:43)
[2017-04-10] MEDS: Insulin Detemir 100 units/mL 10mL Vial SUBQ SCH ×2 (10:03→17:16)
--- NOTE | 2017-04-10 15:07 | Internal Medicine Prog Note ---
Internal Medicine Subjective - Subjective Patient seen and examined:: with staff, chart reviewed Patient is:: awake, verbal, interactive, kyler chair, agitated, confused Patient Complaints of:: unable to sleep Per staff patient has:: no adverse event, no episodes of fall, poor appetite, agitated, combative, tolerating meds Internal Medicine Objective - Results Result Diagrams: 04/07/17 22:20 04/07/17 22:20 Recent Labs: Laboratory Last Values WBC 8.8 Th/cmm (4.8-10.8) 04/07/17 22:20 RBC 3.92 Mil/cmm (3.80-5.80) 04/07/17 22:20 Hgb 11.0 gm/dL (12-16) L 04/07/17 22:20 Hct 33.4 % (41.0-60) L D 04/07/17 22:20 MCV 85.2 fl (80-99) 04/07/17 22:20 MCH 28.1 pg (27.0-31.0) 04/07/17 22:20 MCHC Differential 32.9 pg (28.0-36.0) 04/07/17 22:20 RDW 14.2 % (11.5-20.0) 04/07/17 22:20 Plt Count 288 Th/cmm (150-400) 04/07/17 22:20 MPV 8.6 fl 04/07/17 22:20 Neutrophils % 70.5 % (40.0-80.0) 04/07/17 22:20 Lymphocytes % 19.1 % (20.0-50.0) L 04/07/17 22:20 Monocytes % 7.8 % (2.0-10.0) 04/07/17 22:20 Eosinophils % 2.0 % (0.0-5.0) 04/07/17 22:20 Basophils % 0.6 % (0.0-2.0) 04/07/17 22:20 Sodium 133 mEq/L (136-145) L 04/07/17 22:20 Potassium 4.2 mEq/L (3.5-5.1) 04/07/17 22:20 Chloride 100 mEq/L (98-107) 04/07/17 22:20 Carbon Dioxide 27.4 mEq/L (21.0-31.0) 04/07/17 22:20 Anion Gap 9.8 (7.0-16.0) 04/07/17 22:20 BUN 32 mg/dL (7-25) H 04/07/17 22:20 Creatinine 1.7 mg/dL (0.7-1.3) H 04/07/17 22:20 Est GFR ( Amer) TNP 04/07/17 22:20 Est GFR (Non-Af Amer) TNP 04/07/17 22:20 BUN/Creatinine Ratio 18.8 04/07/17 22:20 Glucose 316 mg/dL (70-105) H 04/07/17 22:20 POC Glucose 289 MG/DL (70 - 105) H 04/07/17 23:01 Hemoglobin A1c % 12.8 % (4.0-6.0) H 04/07/17 22:20 Calcium 9.6 mg/dL (8.6-10.3) 04/07/17 22:20 Magnesium 2.0 mg/dL (1.9-2.7) 04/07/17 22:20 Total Bilirubin 0.3 mg/dL (0.3-1.0) 04/07/17 22:20 Direct Bilirubin 0.01 mg/dL (0.0-0.2) 04/07/17 22:20 AST 10 U/L (13-39) L 04/07/17 22:20 ALT 9 U/L (7-52) 04/07/17 22:20 Alkaline Phosphatase 129 U/L (34-104) H 04/07/17 22:20 Troponin I < 0.01 ng/mL (0.01-0.05) L 04/07/17 22:20 B-Natriuretic Peptide 57.9 pg/mL (5.0-100.0) 04/07/17 22:20 Total Protein 7.9 gm/dL (6.0-8.3) 04/07/17 22:20 Albumin 3.8 gm/dL (4.2-5.5) L 04/07/17 22:20 Globulin 4.1 gm/dL 04/07/17 22:20 Albumin/Globulin Ratio 0.9 (1.0-1.8) L 04/07/17 22:20 Triglycerides 98 mg/dL (<150) 04/07/17 22:20 Cholesterol 119 mg/dL (<200) 04/07/17 22:20 LDL Cholesterol Direct 63 mg/dL (75-193) L 04/07/17 22:20 HDL Cholesterol 47 mg/dL (23-92) 04/07/17 22:20 Free T4 1.22 ng/dL (0.82-1.77) 04/07/17 22:20 TSH 2.24 uIU/ml (0.34-5.60) 04/07/17 22:20 Valproic Acid 32.6 ug/mL (50.0-100.0) L 04/07/17 22:20 - Physical Exam Vitals and I&O: Vital Signs Temp 97.3 F 04/10/17 05:12 Pulse 91 04/10/17 09:55 Resp 12 04/10/17 07:00 BP 125/56 04/10/17 09:55 Pulse Ox 99 04/10/17 07:00 Active Medications: Current Medications Acetaminophen (Tylenol) 650 mg PO Q6HR PRN PRN Reason: MILD PAINAND TEMP >101F Stop: 06/07/17 15:25 Last Admin: 04/09/17 07:16 Dose: 650 mg Al Hydrox/Mg Hydrox/Simethicone (Maalox) 30 ml PO Q4HR PRN PRN Reason: GI DISTRESS Stop: 06/07/17 02:07 Albuterol Sulfate (Albuterol 2.5mg/3ml Neb Ud) 2.5 mg HHN BID [facility] Stop: 06/07/17 16:59 Last Admin: 04/10/17 06:42 Dose: 2.5 mg Amlodipine Besylate (Norvasc) 5 mg PO DAILY [facility] Stop: 06/08/17 08:59 Last Admin: 04/10/17 09:53 Dose: Not Given Aspirin (Ecotrin) 81 mg PO DAILY [facility] Stop: 06/08/17 08:59 Last Admin: 04/10/17 09:43 Dose: 81 mg Bisacodyl (Dulcolax 5 Mg Ec Tab) 10 mg PO DAILY PRN PRN Reason: Constipation Stop: 06/07/17 15:25 Cholecalciferol (Vitamin D3) 1,000 iu PO DAILY [facility] Stop: 06/08/17 08:59 Last Admin: 04/10/17 09:43 Dose: 1,000 iu Divalproex Sodium (Depakote Sprinkle) 500 mg PO DAILY [facility] PRN Reason: Protocol Stop: 06/08/17 08:59 Last Admin: 04/10/17 09:43 Dose: 500 mg Donepezil HCl (Aricept) 10 mg PO HS [facility] Stop: 06/07/17 20:59 Last Admin: 04/09/17 21:28 Dose: 10 mg Famotidine (Pepcid) 20 mg PO BID [facility] Stop: 06/07/17 16:59 Last Admin: 04/10/17 09:43 Dose: 20 mg Fenofibrate (Tricor) 134 mg PO HS [facility] Stop: 06/07/17 20:59 Last Admin: 04/09/17 21:28 Dose: 134 mg Ferrous Sulfate (Iron) 325 mg PO DAILY [facility] Stop: 06/08/17 08:59 Last Admin: 04/10/17 09:43 Dose: 325 mg Insulin Aspart (Novolog Insulin Sliding Scale) 0 units SUBQ ACHS [facility] PRN Reason: Protocol Stop: 06/07/17 07:29 Last Admin: 04/10/17 11:19 Dose: 9 units Insulin Detemir (Levemir Insulin) 25 units SUBQ BID [facility] PRN Reason: Protocol Stop: 06/07/17 16:59 Last Admin: 04/10/17 10:03 Dose: 25 units Lactulose (Cephulac) 20 gm PO BID [facility] Stop: 06/07/17 16:59 Last Admin: 04/10/17 09:42 Dose: 20 gm Lorazepam (Ativan) 0.5 mg PO Q6HR PRN; Protocol PRN Reason: Anxiety Stop: 06/07/17 15:25 Last Admin: 04/08/17 16:28 Dose: 0.5 mg Magnesium Hydroxide (Milk Of Magnesia) 30 ml PO HS PRN PRN Reason: Constipation Memantine (Namenda) 10 mg PO BID [facility] Stop: 06/07/17 16:59 Last Admin: 04/10/17 09:42 Dose: 10 mg Metoprolol Tartrate (Lopressor) 25 mg PO DAILY [facility] Stop: 06/08/17 08:59 Last Admin: 04/10/17 09:55 Dose: Not Given Risperidone (Risperdal) 1 mg PO DAILY [facility] PRN Reason: Protocol Stop: 06/08/17 08:59 Last Admin: 04/10/17 09:42 Dose: 1 mg Zolpidem Tartrate (Ambien) 5 mg PO HS PRN PRN Reason: Insomnia Stop: 06/07/17 02:07 Last Admin: 04/09/17 21:28 Dose: 5 mg General: demented HEENT: NC/AT, PERRLA, thinning hair, poor dentition Neck: Supple Lungs: CTAB Cardiovascular: RRR, Normal S1, Normal S2, with murmur Abdomen: soft, non-tender, globular, non-distended, positive bowel sound Extremities: excoriation, contracture Neurological: disorganized Internal Medicine Assmt/Plan - Assessment Assessment: Diabetes, dementia, Alzheimer's, hypertension, renal insufficiency, COPD, anemia, protein-calorie malnutrition, renal insufficiency. 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 Continue bronchodilator treatments. Nutritional Asmnt/Malnutr-PDOC - Dietary Evaluation Malnutrition Findings (Please click <Entered> for more info): Nutritional Asmnt/Malnutrition Start: 04/08/17 11: 03 Text: Status: Complete Freq: Document 04/08/17 11:03 JOSE R (Rec: 04/08/17 11:33 JOSE R PAUL- [email or web address]) Nutritional Asmnt/Malnutrition Patient General Information Nutritional Screening Consult Diagnosis Psychosis Pertinent Medical Hx/Surgical Hx Psychosis, Schizophrenia, insomnia, anxiety, dementia, alzhemers, DM2, HTN, hyperlipidemia, CKD stage 3, anemia, COPD, gerd, muscle weakness, abnormal posture. Subjective Information patient was admitted from SNF due to altered mental status, increased confusion, agitation , striking out, hitting, screaming, yelling behavior, urinating in hallway in front of everyone. Patient is Indonesian speaking. Per nursing notes, patient with missing natural teeth. Current Diet Order/ Nutrition Support Mechanical soft Chopped, CHRIS 60 gm CCHO Pertinent Medications MVI, B complex with C, Vitamin D3, Levemir, lactulose, iron Pertinent Labs (04/07) Na 133, BUN 32, Cr 1.7, Glucose 316, 289 Nutritional Hx/Data Height 1.57 m Height (Calculated Centimeters) 157.5 Current Weight (lbs) 74.843 kg Weight (Calculated Kilograms) 74.8 Weight (Calculated Grams) 11150.7 [place] Body Weight 118 % [place] Body Weight 139 Body Mass Index (BMI) 30.2 Recent Weight Change No Weight Status Obese GI Symptoms GI Symptoms None Last BM prior to admission Difficult in: None Food Allergies No Cultural/Ethnic/Restorationism Belief none indicated Usual diet at home unknown Skin Integrity/Comment: Ronald 12, coccyx with open area and dry, reddened to lumbar area, left inner thigh with rash, skin discoloration to right lower quadrant, scalp dry. LE edema. Estimated Nutritional Goals BEE in Kcals: Adj wt of IBW Calories/Kcals/Kg 25-30 kcal/kg (using Adj weight 59kg) Kcals Calculated 9387-0270 kcal/day Protein: Adj wt of IBW Protein g/k-1.2 gm/kg (adj wt 59kg) Protein Calculated 60-70 gm/day Fluid: ml 3138-5460 ml/day (1 ml/kcal) Nutritional Problem 1. Problem Problem Altered nutrition related lab values related to Etiology uncontrolled hyperglycemia and electrolyte imbalance aeb Signs/Symptoms: Glucose 316, 289, Ba 133 Intervention/Recommendation Comments Continue 60 gm CCHO, CHRIS, mechanical soft chopped diet as tolerated by patient. MD to continue to modify insulin regimen for optimal glycemic control. Consider Fluid restriction due to hyponatremia. Expected Outcomes/Goals Expected Outcomes/Goals oral intake to meet >75% of estimated needs, weight stable or trend toward ideal body weight, nutrition related labs WNL F/U MR 04/11-8
[2017-04-10] MEDS: Fenofibrate, Micronized 134 mg Cap PO SCH (20:29)
--- NOTE | 2017-04-10 23:29 | Progress Notes ---
DATE: 04/10/2017 SUBJECTIVE: Chart reviewed and the patient interviewed. Also discussed the patient's condition with the staff and reviewed records and labs. The patient is still confused and is still mumbling in [place]ic language. The patient also is still talking to himself and he is still easily agitated and irritable when tried to redirect him. The patient also is still in angry mood. Also, personal hygiene is still poor. On the other hand, the patient is easier to follow directions. No side effects of medications. ASSESSMENT: The patient is still confused and is still psychotic and can be dangerous to others. TREATMENT PLAN: Continue to monitor his behavior and his condition closely and continue to followup and adjusting psychotropic medications. [facility]# [id number]
[2017-04-11] MEDS: INSULIN ASPART SLIDING SCALE 100 UNITS/ML UNIT SUBQ SCH ×2 (06:34→11:57)
--- NOTE | 2017-04-11 08:02 | Discharge Summary ---
DATE OF DISCHARGE: 04/11/2017 DATE OF ADMISSION: 04/07/2017. DATE OF DISCHARGE: 04/11/2017. AGE: 81. SEX: Male. PHYSICIAN: Ashkan Velasquez M.D., M.P.H. FINAL DIAGNOSIS: PRIMARY DIAGNOSIS: Unspecified psychosis. SECONDARY DIAGNOSIS: Dementia, moderate to severe. REASON FOR HOSPITALIZATION: The patient was admitted to the hospital because of increased agitation and irritability and aggressive behavior. HOSPITAL COURSE: The patient continued to be aggressive and he was actively hallucinating and was mumbling in Citizen [place] language. The patient was given Depakote 500 mg daily and Aricept 10 mg at bedtime. Gradually, the patient was calmer and was less agitated. Also, was given Risperdal 1 mg every day to help with his irritability and agitation. The patient was accepted back in [facility] and was transferred there. Physical exam of the patient showed the patient has diabetes and sodium level upon admission was 133 and the BUN 32 and glucose were 316. The patient's medical condition was monitored closely, and the patient has no major medical problems while in the hospital. AFTER DISCHARGE PLANS: The patient discharged from the hospital and went back to [facility] with plans for treatment there. EXPECTED OUTCOME AFTER DISCHARGE: Fair if the patient continued to take his psychotropic medications and follow up with treatment plans. [facility]# [id number]
[2017-04-11] MEDS: Multivitamin w/ Minerals Tab PO SCH (08:33)
[2017-04-11] MEDS: Ferrous Sulfate 325 MG TAB PO SCH (08:33)
[2017-04-11] MEDS: Insulin Detemir 100 units/mL 10mL Vial SUBQ SCH (08:34)
[2017-04-11] MEDS: Lactulose 10 Gm/15 mL 30mL UDC PO SCH (08:37)
[2017-04-11] MEDS: Albuterol Nebulizer 2.5mg/3mL HHN SCH (08:44)
--- NOTE | 2017-04-11 11:44 | Internal Medicine Prog Note ---
Internal Medicine Subjective - Subjective Service Date: 04/11/17 Patient is:: awake, verbal, interactive, kyler chair, agitated, confused Patient Complaints of:: unable to sleep Per staff patient has:: no adverse event, no episodes of fall, poor appetite, agitated, combative, tolerating meds Internal Medicine Objective - Results Result Diagrams: 04/07/17 22:20 04/07/17 22:20 Recent Labs: Laboratory Last Values WBC 8.8 Th/cmm (4.8-10.8) 04/07/17 22:20 RBC 3.92 Mil/cmm (3.80-5.80) 04/07/17 22:20 Hgb 11.0 gm/dL (12-16) L 04/07/17 22:20 Hct 33.4 % (41.0-60) L D 04/07/17 22:20 MCV 85.2 fl (80-99) 04/07/17 22:20 MCH 28.1 pg (27.0-31.0) 04/07/17 22:20 MCHC Differential 32.9 pg (28.0-36.0) 04/07/17 22:20 RDW 14.2 % (11.5-20.0) 04/07/17 22:20 Plt Count 288 Th/cmm (150-400) 04/07/17 22:20 MPV 8.6 fl 04/07/17 22:20 Neutrophils % 70.5 % (40.0-80.0) 04/07/17 22:20 Lymphocytes % 19.1 % (20.0-50.0) L 04/07/17 22:20 Monocytes % 7.8 % (2.0-10.0) 04/07/17 22:20 Eosinophils % 2.0 % (0.0-5.0) 04/07/17 22:20 Basophils % 0.6 % (0.0-2.0) 04/07/17 22:20 Sodium 133 mEq/L (136-145) L 04/07/17 22:20 Potassium 4.2 mEq/L (3.5-5.1) 04/07/17 22:20 Chloride 100 mEq/L (98-107) 04/07/17 22:20 Carbon Dioxide 27.4 mEq/L (21.0-31.0) 04/07/17 22:20 Anion Gap 9.8 (7.0-16.0) 04/07/17 22:20 BUN 32 mg/dL (7-25) H 04/07/17 22:20 Creatinine 1.7 mg/dL (0.7-1.3) H 04/07/17 22:20 Est GFR ( Amer) TNP 04/07/17 22:20 Est GFR (Non-Af Amer) TNP 04/07/17 22:20 BUN/Creatinine Ratio 18.8 04/07/17 22:20 Glucose 316 mg/dL (70-105) H 04/07/17 22:20 POC Glucose 289 MG/DL (70 - 105) H 04/07/17 23:01 Hemoglobin A1c % 12.8 % (4.0-6.0) H 04/07/17 22:20 Calcium 9.6 mg/dL (8.6-10.3) 04/07/17 22:20 Magnesium 2.0 mg/dL (1.9-2.7) 04/07/17 22:20 Total Bilirubin 0.3 mg/dL (0.3-1.0) 04/07/17 22:20 Direct Bilirubin 0.01 mg/dL (0.0-0.2) 04/07/17 22:20 AST 10 U/L (13-39) L 04/07/17 22:20 ALT 9 U/L (7-52) 04/07/17 22:20 Alkaline Phosphatase 129 U/L (34-104) H 04/07/17 22:20 Troponin I < 0.01 ng/mL (0.01-0.05) L 04/07/17 22:20 B-Natriuretic Peptide 57.9 pg/mL (5.0-100.0) 04/07/17 22:20 Total Protein 7.9 gm/dL (6.0-8.3) 04/07/17 22:20 Albumin 3.8 gm/dL (4.2-5.5) L 04/07/17 22:20 Globulin 4.1 gm/dL 04/07/17 22:20 Albumin/Globulin Ratio 0.9 (1.0-1.8) L 04/07/17 22:20 Triglycerides 98 mg/dL (<150) 04/07/17 22:20 Cholesterol 119 mg/dL (<200) 04/07/17 22:20 LDL Cholesterol Direct 63 mg/dL (75-193) L 04/07/17 22:20 HDL Cholesterol 47 mg/dL (23-92) 04/07/17 22:20 Free T4 1.22 ng/dL (0.82-1.77) 04/07/17 22:20 TSH 2.24 uIU/ml (0.34-5.60) 04/07/17 22:20 Valproic Acid 32.6 ug/mL (50.0-100.0) L 04/07/17 22:20 - Physical Exam Vitals and I&O: Vital Signs Temp 97.7 F 04/11/17 09:36 Pulse 75 04/11/17 09:36 Resp 18 04/11/17 09:36 BP 138/77 04/11/17 09:36 Pulse Ox 99 04/11/17 09:36 Intake & Output 04/10/17 04/11/17 04/11/17 18:59 06:59 18:59 Intake Total 1000 440 Balance 1000 440 Intake: Oral 1000 440 Other: # Voids 3 2 # Bowel Movements 1 0 Stool Characteristics Soft Active Medications: Current Medications Acetaminophen (Tylenol) 650 mg PO Q6HR PRN PRN Reason: MILD PAINAND TEMP >101F Stop: 06/07/17 15:25 Last Admin: 04/11/17 01:55 Dose: 650 mg Al Hydrox/Mg Hydrox/Simethicone (Maalox) 30 ml PO Q4HR PRN PRN Reason: GI DISTRESS Stop: 06/07/17 02:07 Albuterol Sulfate (Albuterol 2.5mg/3ml Neb Ud) 2.5 mg HHN BID [facility] Stop: 06/07/17 16:59 Last Admin: 04/11/17 08:44 Dose: 2.5 mg Amlodipine Besylate (Norvasc) 5 mg PO DAILY [facility] Stop: 06/08/17 08:59 Last Admin: 04/11/17 08:32 Dose: 5 mg Aspirin (Ecotrin) 81 mg PO DAILY [facility] Stop: 06/08/17 08:59 Last Admin: 04/11/17 08:33 Dose: 81 mg Bisacodyl (Dulcolax 5 Mg Ec Tab) 10 mg PO DAILY PRN PRN Reason: Constipation Stop: 06/07/17 15:25 Cholecalciferol (Vitamin D3) 1,000 iu PO DAILY [facility] Stop: 06/08/17 08:59 Last Admin: 04/11/17 08:33 Dose: 1,000 iu Divalproex Sodium (Depakote Sprinkle) 500 mg PO DAILY [facility] PRN Reason: Protocol Stop: 06/08/17 08:59 Last Admin: 04/11/17 08:32 Dose: 500 mg Donepezil HCl (Aricept) 10 mg PO HS [facility] Stop: 06/07/17 20:59 Last Admin: 04/10/17 20:29 Dose: 10 mg Famotidine (Pepcid) 20 mg PO BID [facility] Stop: 06/07/17 16:59 Last Admin: 04/11/17 08:33 Dose: 20 mg Fenofibrate (Tricor) 134 mg PO HS [facility] Stop: 06/07/17 20:59 Last Admin: 04/10/17 20:29 Dose: 134 mg Ferrous Sulfate (Iron) 325 mg PO DAILY [facility] Stop: 06/08/17 08:59 Last Admin: 04/11/17 08:33 Dose: 325 mg Insulin Aspart (Novolog Insulin Sliding Scale) 0 units SUBQ ACHS [facility] PRN Reason: Protocol Stop: 06/07/17 07:29 Last Admin: 04/11/17 06:34 Dose: Not Given Insulin Detemir (Levemir Insulin) 25 units SUBQ BID [facility] PRN Reason: Protocol Stop: 06/07/17 16:59 Last Admin: 04/11/17 08:34 Dose: 25 units Lactulose (Cephulac) 20 gm PO BID [facility] Stop: 06/07/17 16:59 Last Admin: 04/11/17 08:37 Dose: Not Given Lorazepam (Ativan) 0.5 mg PO Q6HR PRN; Protocol PRN Reason: Anxiety Stop: 06/07/17 15:25 Last Admin: 04/10/17 17:17 Dose: 0.5 mg Magnesium Hydroxide (Milk Of Magnesia) 30 ml PO HS PRN PRN Reason: Constipation Memantine (Namenda) 10 mg PO BID [facility] Stop: 06/07/17 16:59 Last Admin: 04/11/17 08:33 Dose: 10 mg Metoprolol Tartrate (Lopressor) 25 mg PO DAILY [facility] Stop: 06/08/17 08:59 Last Admin: 04/11/17 08:33 Dose: 25 mg Risperidone (Risperdal) 1 mg PO DAILY [facility] PRN Reason: Protocol Stop: 06/08/17 08:59 Last Admin: 04/11/17 08:33 Dose: 1 mg Zolpidem Tartrate (Ambien) 5 mg PO HS PRN PRN Reason: Insomnia Stop: 06/07/17 02:07 Last Admin: 04/10/17 20:29 Dose: 5 mg General: demented HEENT: NC/AT, PERRLA, thinning hair, poor dentition Neck: Supple Lungs: CTAB Cardiovascular: RRR, Normal S1, Normal S2, with murmur Abdomen: soft, non-tender, globular, non-distended, positive bowel sound Extremities: excoriation, contracture Neurological: disorganized Internal Medicine Assmt/Plan - Assessment Assessment: Diabetes, dementia, Alzheimer's, hypertension, renal insufficiency, COPD, anemia, protein-calorie malnutrition, renal insufficiency. - Plan Plan: monitor glucose safety precautions continue current plan of care Nutritional Asmnt/Malnutr-PDOC - Dietary Evaluation Malnutrition Findings (Please click <Entered> for more info): Nutritional Asmnt/Malnutrition Start: 04/08/17 11: 03 Text: Status: Complete Freq: Document 04/08/17 11:03 JOSE R (Rec: 04/08/17 11:33 JOSE R PAUL- [email or web address]) Nutritional Asmnt/Malnutrition Patient General Information Nutritional Screening Consult Diagnosis Psychosis Pertinent Medical Hx/Surgical Hx Psychosis, Schizophrenia, insomnia, anxiety, dementia, alzhemers, DM2, HTN, hyperlipidemia, CKD stage 3, anemia, COPD, gerd, muscle weakness, abnormal posture. Subjective Information patient was admitted from SNF due to altered mental status, increased confusion, agitation , striking out, hitting, screaming, yelling behavior, urinating in hallway in front of everyone. Patient is Czech speaking. Per nursing notes, patient with missing natural teeth. Current Diet Order/ Nutrition Support Mechanical soft Chopped, CHRIS 60 gm CCHO Pertinent Medications MVI, B complex with C, Vitamin D3, Levemir, lactulose, iron Pertinent Labs (04/07) Na 133, BUN 32, Cr 1.7, Glucose 316, 289 Nutritional Hx/Data Height 5 ft 2 in Height (Calculated Centimeters) 157.5 Current Weight (lbs) 165 lb Weight (Calculated Kilograms) 74.8 Weight (Calculated Grams) 38997.7 [place] Body Weight 118 % [place] Body Weight 139 Body Mass Index (BMI) 30.2 Recent Weight Change No Weight Status Obese GI Symptoms GI Symptoms None Last BM prior to admission Difficult in: None Food Allergies No Cultural/Ethnic/Moravian Belief none indicated Usual diet at home unknown Skin Integrity/Comment: Ronald 12, coccyx with open area and dry, reddened to lumbar area, left inner thigh with rash, skin discoloration to right lower quadrant, scalp dry. LE edema. Estimated Nutritional Goals BEE in Kcals: Adj wt of IBW Calories/Kcals/Kg 25-30 kcal/kg (using Adj weight 59kg) Kcals Calculated 0233-3114 kcal/day Protein: Adj wt of IBW Protein g/k-1.2 gm/kg (adj wt 59kg) Protein Calculated 60-70 gm/day Fluid: ml 5510-0015 ml/day (1 ml/kcal) Nutritional Problem 1. Problem Problem Altered nutrition related lab values related to Etiology uncontrolled hyperglycemia and electrolyte imbalance aeb Signs/Symptoms: Glucose 316, 289, Ba 133 Intervention/Recommendation Comments Continue 60 gm CCHO, CHRIS, mechanical soft chopped diet as tolerated by patient. MD to continue to modify insulin regimen for optimal glycemic control. Consider Fluid restriction due to hyponatremia. Expected Outcomes/Goals Expected Outcomes/Goals oral intake to meet >75% of estimated needs, weight stable or trend toward ideal body weight, nutrition related labs WNL F/U MR 04/11-
== END 2017-04-11 13:30 | disposition home or self-care (01) | DRG 885 ==
LOC: ER 21:59 → GERO2 23:25
PROVIDERS: ADMIT Psychiatry & Neurology Psychiatry; ATTEND Psychiatry & Neurology Psychiatry
DX: F29 Unspecified psychosis not due to a substance or known physiological condition (principal); F02.81 Dementia in other diseases classified elsewhere, unspecified severity, with behavioral disturbance; N18.3 Chronic kidney disease, stage 3 (moderate); E11.65 Type 2 diabetes mellitus with hyperglycemia; E46 Unspecified protein-calorie malnutrition; E11.22 Type 2 diabetes mellitus with diabetic chronic kidney disease; F31.60 Bipolar disorder, current episode mixed, unspecified; G30.9 Alzheimer's disease, unspecified; F41.9 Anxiety disorder, unspecified; G47.00 Insomnia, unspecified; K21.0 Gastro-esophageal reflux disease with esophagitis; E78.5 Hyperlipidemia, unspecified; D63.8 Anemia in other chronic diseases classified elsewhere; F20.9 Schizophrenia, unspecified; I12.9 Hypertensive chronic kidney disease with stage 1 through stage 4 chronic kidney disease, or unspecified chronic kidney disease; J44.9 Chronic obstructive pulmonary disease, unspecified; Z79.4 Long term (current) use of insulin; Z68.30 Body mass index [BMI] 30.0-30.9, adult
CPT/HCPCS: 36415-UA; 71045-TC; 80053-TC; 80061-TC; 80164-TC; 82248-TC; 82948-90; 83036-90; 83735-TC; 83880-TC; 84439-90; 84443-TC; 84484-TC; 85025-TC; 93005; 94640; 94760; J1815; J7613; Z7610

== ENCOUNTER 2018-01-04 20:42 | Inpatient (IN) | payer MEDICARE, OTHER ==
--- NOTE | 2018-01-04 21:08 | ED Physician Chart ---
ED Chief Complaint/HPI - Patient Information Date Seen:: 01/04/18 Time Seen:: 21:00 Chief Complaint:: physically aggressive behavior History of Present Illness:: Patient has reportedly been exhibiting physically aggressive behavior at his extended care facility. Allergies:: Allergies Allergy/AdvReac Type Severity Reaction Status Date / Time rivaroxaban [From Xarelto] Allergy Verified 08/20/16 19:27 Vitals:: Vital Signs - 8 hr 01/04/18 20:45 Temp 97.3 F HR 60 RR 17 BP 157/76 O2 Sat % 98 Historian:: Patient Review:: Transfer documents Reviewed ED Review of Systems - Review of Systems General/Constitutional: No fever, No chills, No weight loss, No weakness, No diaphoresis, No edema, No loss of appetite Skin: No skin lesions, No rash, No bruising Head: No headache, No light-headedness Eyes: No loss of vision, No pain, No diplopia ENT: No earache, No nasal drainage, No sore throat, No tinnitus Neck: No neck pain, No swelling, No thyromegaly, No stiffness, No mass noted Cardio Vascular: No chest pain, No palpitations, No PND, No orthopnea, No edema Pulmonary: No SOB, No cough, No sputum, No wheezing GI: No nausea, No vomiting, No diarrhea, No pain, No melena, No hematochezia, No constipation, No hematemesis G/U: No dysuria, No frequency, No hematuria Musculoskeletal: No bone or joint pain, No back pain, No muscle pain Endocrine: No polyuria, No polydipsia Psychiatric: No prior psych history, No depression, No anxiety, No suicidal ideation Hematopoietic: No bruising, No lymphadenopathy Allergic/Immuno: No urticaria, No angioedema Neurological: No syncope, No focal symptoms, No weakness, No paresthesia, No headache, No seizure, No dizziness, No confusion, No vertigo ED Past Medical History - Past Medical History Past Medical History: HTN, DM, Asthma/COPD, Dyslipidemia, PUD/GERD, Dementia, Other (chronic renal disease; Alzheimer disease; psychosis; upper lipidemia) Family History: Other (unavailable) Social History: Care Facility Psychiatricy History: Schizophrenia, Dementia, Other (anxiety) Medication: Reviewed Family Medical History - Family Member Mother History Unknown: Yes Ethnicity: Unknown Living Status: Unknown Hx Family Cancer: No Hx Family Coronary Artery Disease: No Hx Family Congestive Heart Failure: No Hx Family Hypertension: No Hx Family Stroke: No Hx Family Diabetes: Yes Hx Family Seizures: No Hx Family Dementia: No Hx Family AIDS: No Hx Family HIV: No Hx Family COPD: No Hx Family Hepatitis: No Hx Family Psychiatric Problems: No Hx Family Tuberculosis: No ED Physical Exam - Physical Examination General/Constitutional: Well-developed, well-nourished, Alert, No distress, Non- toxic appearing, Ambulatory Other Gen/Cons comments:: Patient is confused; he does not know the year Head: Atraumatic Eyes: Lids, conjuctiva normal, PERRL Skin: Nl inspection, No rash, No skin lesions, No ecchymosis, Well hydrated, No lymphadenopathy ENMT: External ears, nose nl Other ENMT comments:: 4 out of 4 peridontal disease Neck: No nuchal rigidity Respiratory: Nl effort/Exclusion, Clear to Auscultation, No Wheeze/Rhonchi/Rales Cardio Vascular: RRR, No murmur, gallop, rubs GI: No tenderness/rebounding/guarding, No organomegaly, No hernia, Normal BS's Extremities: Normal digits & nails Neuro/Psych: No focal deficits ED Labs/Radiology/EKG Results - Lab Results Results: Abnormal Lab Results 01/04/18 21:17 WBC 7.5 RBC 3.96 Hgb 11.4 L Hct 34.1 L MCV 86.1 MCH 28.7 MCHC Differential 33.3 RDW 14.4 Plt Count 246 MPV 8.2 Neutrophils % 61.9 Lymphocytes % 25.2 Monocytes % 7.5 Eosinophils % 5.0 Basophils % 0.4 - EKG Interpretations Rate & Rhythm: normal sinus rhythm with a rate of 60 [place]: normal ED Assessment - Assessment General Assessment: Patient is medically clear to be admitted to [facility]. He has a history of renal insufficiency and diabetes so the results of the comprehensive metabolic panel with a glucose of 232, a BUN of 30 and a creatinine of 1.6 are to be expected. ED Septic Shock - . Is Septic Shock (SBP<90, OR Lactate>4 mmol\L) present?: No - <6hrs of presentation: Vital Signs: Vital Signs - 8 hr 01/04/18 20:45 Temp 97.3 F HR 60 RR 17 BP 157/76 O2 Sat % 98 ED Reassessment (Disposition) - Reassessment Reassessment Condition:: Unchanged - Diagnosis Diagnosis:: Dementia with aggressive behavior - Patient Disposition Admitted to:: [facility] Admitting Medical Physician:: Jomar Stevenson Admitting Psych Physician:: Ashkan Velasquez Condition at Disposition:: Stable, Unchanged
[2018-01-04 21:26] LABS: % BASOPHILS 0.4 % (0.0-2.0); % LYMPHOCYTES 25.2 % (20.0-50.0); % MONOCYTES 7.5 % (2.0-10.0); % NEUTROPHILS 61.9 % (40.0-80.0); EOSINOPHILE ABSOLUTE 0.4 Th/cmm (0.1-0.4); HEMATOCRIT 34.1 % (41.0-60); HEMOGLOBIN 11.4 gm/dL (12-16); LYMPHOCYTE ABSOLUTE 1.9 Th/cmm (1.5-3.0); MEAN CELL VOLUME 86.1 fl (80-99); MEAN CORPUSCULAR HEMOGLOBIN 28.7 pg (27.0-31.0); MEAN CORPUSCULAR HGB CONC 33.3 pg (28.0-36.0); MEAN PLATELET VOLUME 8.2 fl; MONOCYTE ABSOLUTE 0.6 Th/cmm (0.3-1.0); NEUTROPHILE ABSOLUTE 4.6 Th/cmm (1.8-8.0); PLATELET COUNT 246 Th/cmm (150-400); RED BLOOD COUNT 3.96 Mil/cmm (3.80-5.80); RED CELL DISTRIBUTION WIDTH 14.4 % (11.5-20.0); WHITE BLOOD COUNT 7.5 Th/cmm (4.8-10.8)
[2018-01-04 21:56] LABS: URINE SOURCE CLEAN C
[2018-01-04 21:57] LABS: ACETAMINOPHEN < 10.0 ug/mL (10.0-30.0); ALB/GLOB RATIO 1.2 (1.0-1.8); ALBUMIN 3.8 gm/dL (4.2-5.5); ALKALINE PHOSPHATASE 56 U/L (34-104); ANION GAP 12.7 (7.0-16.0); BILIRUBIN,TOTAL 0.3 mg/dL (0.3-1.0); BUN - UREA NITROGEN 30 mg/dL (7-25); CALCIUM SERUM 9.2 mg/dL (8.6-10.3); CARBON DIOXIDE 27.6 mEq/L (21.0-31.0); CHLORIDE 101 mEq/L (98-107); CHOLESTEROL 117 mg/dL (<200); CREATININE - SERUM 1.6 mg/dL (0.7-1.3); GLUCOSE 232 mg/dL (70-105); HDL -HIGH DENSITY LIPOPROTEIN 36 mg/dL (23-92); POTASSIUM SERUM 4.3 mEq/L (3.5-5.1); SALICYLATES (ASPIRIN) < 25.0 mg/L (30.0-100.0); SGOT 13 U/L (13-39); SGPT/ALT 11 U/L (7-52); SODIUM SERUM 137 mEq/L (136-145); TRIGLYCERIDES 150 mg/dL (<150)
[2018-01-04 22:00] LABS: URINE BILIRUBIN NEGATIVE (NEGATIVE); URINE BLOOD NEGATIVE (NEGATIVE); URINE GLUCOSE (UA) 250 mg/dL (NEGATIVE); URINE KETONE NEGATIVE (NEGATIVE); URINE LEUKOCYTE ESTERASE NEGATIVE (NEGATIVE); URINE NITRATE NEGATIVE (NEGATIVE); URINE PROTEIN 100 mg/dL (NEGATIVE)
[2018-01-04 22:05] LABS: URINE CLARITY CLEAR (CLEAR); URINE COLOR YELLOW; URINE MICROSCOPIC INDICATED? YES
[2018-01-04 22:12] LABS: URINE BACTERIA OCCASIONAL /hpf (NONE SEEN); URINE EPITHELIAL CELLS RARE /lpf (FEW); URINE RBC 0-2 /hpf (0-5); URINE WBC 0-2 /hpf (0-5)
[2018-01-04 22:13] LABS: AMPHETAMINE URINE NEGATIVE (NEGATIVE); BARBITURATES URINE NEGATIVE (NEGATIVE); BENZODIAZEPINES QUAL URINE NEGATIVE (NEGATIVE); CANNABINOID THC NEGATIVE (NEGATIVE); COCAINE METABOLITE QUAL URINE NEGATIVE (NEGATIVE); METHADONE URINE NEGATIVE (NEGATIVE); METHAMPHETAMINES QUAL URINE NEGATIVE (NEGATIVE); OPIATES (MORPHINE) QUAL. URINE NEGATIVE (NEGATIVE); PHENCYCLIDINE (PCP) URINE NEGATIVE (NEGATIVE); TRICYCLICS (TCA) QUAL. URINE NEGATIVE (NEGATIVE)
[2018-01-05 00:01] VITALS: BP 142/65
[2018-01-05 01:07] LABS: CHOLESTEROL 118 mg/dL (<200); HDL -HIGH DENSITY LIPOPROTEIN 37 mg/dL (23-92); TRIGLYCERIDES 149 mg/dL (<150)
[2018-01-05] MEDS ORDERED: Magnesium Hydroxide (MOM) 30 mL UDC PO PRN (01:48)
[2018-01-05] MEDS ORDERED: Maalox 30 mL Cup PO PRN ×2 (01:48→01:51)
[2018-01-05] MEDS: INSULIN ASPART SLIDING SCALE 100 UNITS/ML UNIT SUBQ SCH ×3 (06:42→16:39)
[2018-01-05] MEDS: Aspirin 81mg Chewable Tab PO SCH (09:26)
[2018-01-05] MEDS: Insulin Detemir 100 units/mL 10mL Vial SUBQ SCH ×2 (09:39→16:39)
--- NOTE | 2018-01-05 13:50 | History and Physical ---
History of Present Illness - HPI Chief Complaint: aggressive behavior HPI: This is a 82-year old male who is a group home resident admitted to the [facility] due to 1 day hx of agitation towards nursing staff and residents at the snf Vital Signs: Last Vital Signs Temp 97.5 F 01/05/18 06:34 Pulse 76 01/05/18 09:27 Resp 18 01/05/18 06:34 BP 145/71 01/05/18 09:27 Pulse Ox 99 01/05/18 06:34 Past Medical History Other History: HTN, DM, Asthma/COPD, Dyslipidemia, PUD/GERD, Dementia, chronic renal disease, Alzheimer disease Schizophrenia, Dementia, Family Medical History - Family Member Mother History Unknown: Yes Ethnicity: Unknown Living Status: Unknown Hx Family Cancer: No Hx Family Coronary Artery Disease: No Hx Family Congestive Heart Failure: No Hx Family Hypertension: No Hx Family Stroke: No Hx Family Diabetes: Yes Hx Family Seizures: No Hx Family Dementia: No Hx Family AIDS: No Hx Family HIV: No Hx Family COPD: No Hx Family Hepatitis: No Hx Family Psychiatric Problems: No Hx Family Tuberculosis: No Social History Smoke: No Alcohol: None Drugs: None Lives: Intermediate - Medications Home Medications: Home Medication Medication Instructions Recorded Type Acetaminophen [Tylenol] 650 mg PO Q6HR PRN 01/04/18 History Aspirin [Aspirin Chewable] 81 mg PO DAILY 01/04/18 History Cholecalciferol (Vit D3) [Vitamin 1,000 iu PO DAILY 01/04/18 History D3] Divalproex Sodium [Depakote 500 mg PO DAILY 01/04/18 History Sprinkle] Docusate Sodium [Colace] 100 mg PO DAILY 01/04/18 History Donepezil Hcl [Aricept] 10 mg PO HS 01/04/18 History Famotidine 20 mg PO BID 01/04/18 History Fenofibrate, Micronized [Tricor] 134 mg PO HS 01/04/18 History Insulin Aspart Sliding Scale See Protocol SUBQ AC 01/04/18 History [NovoLOG INSULIN SLIDING SCALE] Insulin Detemir [Levemir Insulin] 25 units SUBQ BID 01/04/18 History Linagliptin [Tradjenta] 5 mg PO DAILY 01/04/18 History Memantine [Namenda] 10 mg PO BID 01/04/18 History Metoprolol Tartrate 25 mg PO DAILY 01/04/18 History Tramadol HCl [Ultram] 50 mg PO QID PRN 01/04/18 History Zinc Oxide 1 applic TP TID 01/04/18 History amLODIPine Besylate [Norvasc] 5 mg PO DAILY 01/04/18 History risperiDONE [RisperDAL] 0.5 mg PO HS 01/04/18 History - Allergies Allergies/Adverse Reactions: Allergies Allergy/AdvReac Type Severity Reaction Status Date / Time rivaroxaban [From Xarelto] Allergy Verified 08/20/16 19:27 Review of Systems - Review of Systems Constitutional: Report: No Significant Eyes: Report: No Significant Respiratory: Report: No Significant Cardiovascular: Report: No Significant Neurological: Report: No Significant Physical Exam - Physical Exam HEENT: Report: Ears Nose Throat within normal limits Neck: Report: Within normal limits Cardiovascular Systems: Report: +s1/s2 noted, Regular, Rate and Rhythm Respiratory: Report: Breath Sounds are within normal limits, Clear to Auscultation of lung vega Abdomen: Report: Non-tender to palpation Skin: Report: Warm, Dry Neuro/Psych: Report: Depressed affect - Lab Results All Lab Results last 24 hours: Laboratory Results - last 24 hr 01/04/18 01/04/18 01/04/18 17:35 17:35 21:17 WBC 7.5 RBC 3.96 Hgb 11.4 L Hct 34.1 L MCV 86.1 MCH 28.7 MCHC Differential 33.3 RDW 14.4 Plt Count 246 MPV 8.2 Neutrophils % 61.9 Lymphocytes % 25.2 Monocytes % 7.5 Eosinophils % 5.0 Basophils % 0.4 Sodium Potassium Chloride Carbon Dioxide Anion Gap BUN Creatinine Est GFR ( Amer) Est GFR (Non-Af Amer) BUN/Creatinine Ratio Glucose Calcium Total Bilirubin AST ALT Alkaline Phosphatase Total Protein Albumin Globulin Albumin/Globulin Ratio Triglycerides Cholesterol LDL Cholesterol Direct HDL Cholesterol TSH Urine Source CLEAN C Urine Color YELLOW Urine Clarity CLEAR Urine pH 7.0 Ur Specific [place] 1.025 Urine Protein 100 H Urine Glucose (UA) 250 H Urine Ketones NEGATIVE Urine Blood NEGATIVE Urine Nitrate NEGATIVE Urine Bilirubin NEGATIVE Urine Urobilinogen 1.0 Ur Leukocyte Esterase NEGATIVE Urine RBC 0-2 H Urine WBC 0-2 Ur Epithelial Cells RARE Urine Bacteria OCCASIONAL Salicylates Urine Opiates Screen NEGATIVE Urine Methadone Screen NEGATIVE Acetaminophen Ur Barbiturates Screen NEGATIVE Ur Tricyclics Screen NEGATIVE Ur Phencyclidine Scrn NEGATIVE Amphetamines Screen NEGATIVE U Methamphetamines Scrn NEGATIVE U Benzodiazepines Scrn NEGATIVE U Cocaine Metab Screen NEGATIVE U Cannabinoids Screen NEGATIVE Ethyl Alcohol 01/04/18 01/04/18 01/05/18 21:17 21:17 00:48 WBC RBC Hgb Hct MCV MCH MCHC Differential RDW Plt Count MPV Neutrophils % Lymphocytes % Monocytes % Eosinophils % Basophils % Sodium 137 Potassium 4.3 Chloride 101 Carbon Dioxide 27.6 Anion Gap 12.7 BUN 30 H Creatinine 1.6 H Est GFR ( Amer) TNP Est GFR (Non-Af Amer) TNP BUN/Creatinine Ratio 18.8 Glucose 232 H Calcium 9.2 Total Bilirubin 0.3 AST 13 ALT 11 Alkaline Phosphatase 56 Total Protein 7.0 Albumin 3.8 L Globulin 3.2 Albumin/Globulin Ratio 1.2 Triglycerides 150 149 Cholesterol 117 118 LDL Cholesterol Direct 74 L 75 HDL Cholesterol 36 37 TSH 3.43 Urine Source Urine Color Urine Clarity Urine pH Ur Specific [place] Urine Protein Urine Glucose (UA) Urine Ketones Urine Blood Urine Nitrate Urine Bilirubin Urine Urobilinogen Ur Leukocyte Esterase Urine RBC Urine WBC Ur Epithelial Cells Urine Bacteria Salicylates < 25.0 L Urine Opiates Screen Urine Methadone Screen Acetaminophen < 10.0 L Ur Barbiturates Screen Ur Tricyclics Screen Ur Phencyclidine Scrn Amphetamines Screen U Methamphetamines Scrn U Benzodiazepines Scrn U Cocaine Metab Screen U Cannabinoids Screen Ethyl Alcohol < 10 - Assessment Assessment: agitation HTN DM Asthma COPD Dyslipidemia GERD Dementia chronic renal disease Alzheimer disease Schizophrenia Dementia - Plan Plan: fall precautions supplemental o2 as needed continue current orders
[2018-01-05] MEDS: Zinc Oxide Ointment 60 gm TP SCH ×2 (15:01→22:09)
[2018-01-05] MEDS: Fenofibrate, Micronized 134 mg Cap PO SCH (21:33)
[2018-01-06] MEDS: INSULIN ASPART SLIDING SCALE 100 UNITS/ML UNIT SUBQ SCH ×3 (06:44→16:59)
--- NOTE | 2018-01-06 08:41 | Diagnostic Imaging Report ---
Right shoulder 2 views Indication: pain Comparison: none Findings: There is end-stage arthritis of the glenohumeral joint with complete joint loss and calcification seen superiorly and inferiorly. No evidence of a gross acute fracture or dislocation. No significant focal soft tissue swelling. Osteopenia is noted. Impression: End-stage arthritis of the glenohumeral joint. Adjacent calcifications are noted probably degenerative in etiology. Otherwise no evidence of gross fracture. In the setting of trauma, if clinical symptoms persist and there is continued concern for an occult fracture, follow up exams in 5-7 days is suggested.
[2018-01-06] MEDS: Aspirin 81mg Chewable Tab PO SCH (09:22)
[2018-01-06] MEDS: Zinc Oxide Ointment 60 gm TP SCH ×3 (09:25→20:38)
[2018-01-06] MEDS: Insulin Detemir 100 units/mL 10mL Vial SUBQ SCH ×2 (09:39→17:01)
--- NOTE | 2018-01-06 14:43 | Internal Medicine Prog Note ---
Internal Medicine Subjective - Subjective Service Date: 01/06/18 Patient seen and examined:: with staff Patient is:: awake Per staff patient has:: no adverse event, tolerating meds Internal Medicine Objective - Results Result Diagrams: 01/04/18 21:17 01/04/18 21:17 Recent Labs: Laboratory Last Values WBC 7.5 Th/cmm (4.8-10.8) 01/04/18 21:17 RBC 3.96 Mil/cmm (3.80-5.80) 01/04/18 21:17 Hgb 11.4 gm/dL (12-16) L 01/04/18 21:17 Hct 34.1 % (41.0-60) L 01/04/18 21:17 MCV 86.1 fl (80-99) 01/04/18 21:17 MCH 28.7 pg (27.0-31.0) 01/04/18 21:17 MCHC Differential 33.3 pg (28.0-36.0) 01/04/18 21:17 RDW 14.4 % (11.5-20.0) 01/04/18 21:17 Plt Count 246 Th/cmm (150-400) 01/04/18 21:17 MPV 8.2 fl 01/04/18 21:17 Neutrophils % 61.9 % (40.0-80.0) 01/04/18 21:17 Lymphocytes % 25.2 % (20.0-50.0) 01/04/18 21:17 Monocytes % 7.5 % (2.0-10.0) 01/04/18 21:17 Eosinophils % 5.0 % (0.0-5.0) 01/04/18 21:17 Basophils % 0.4 % (0.0-2.0) 01/04/18 21:17 Sodium 137 mEq/L (136-145) 01/04/18 21:17 Potassium 4.3 mEq/L (3.5-5.1) 01/04/18 21:17 Chloride 101 mEq/L (98-107) 01/04/18 21:17 Carbon Dioxide 27.6 mEq/L (21.0-31.0) 01/04/18 21:17 Anion Gap 12.7 (7.0-16.0) 01/04/18 21:17 BUN 30 mg/dL (7-25) H 01/04/18 21:17 Creatinine 1.6 mg/dL (0.7-1.3) H 01/04/18 21:17 Est GFR ( Amer) TNP 01/04/18 21:17 Est GFR (Non-Af Amer) TNP 01/04/18 21:17 BUN/Creatinine Ratio 18.8 01/04/18 21:17 Glucose 232 mg/dL (70-105) H 01/04/18 21:17 Calcium 9.2 mg/dL (8.6-10.3) 01/04/18 21:17 Total Bilirubin 0.3 mg/dL (0.3-1.0) 01/04/18 21:17 AST 13 U/L (13-39) 01/04/18 21:17 ALT 11 U/L (7-52) 01/04/18 21:17 Alkaline Phosphatase 56 U/L (34-104) 01/04/18 21:17 Total Protein 7.0 gm/dL (6.0-8.3) 01/04/18 21:17 Albumin 3.8 gm/dL (4.2-5.5) L 01/04/18 21:17 Globulin 3.2 gm/dL 01/04/18 21:17 Albumin/Globulin Ratio 1.2 (1.0-1.8) 01/04/18 21:17 Triglycerides 149 mg/dL (<150) 01/05/18 00:48 Cholesterol 118 mg/dL (<200) 01/05/18 00:48 LDL Cholesterol Direct 75 mg/dL (75-193) 01/05/18 00:48 HDL Cholesterol 37 mg/dL (23-92) 01/05/18 00:48 TSH 3.43 uIU/ml (0.34-5.60) 01/04/18 21:17 Urine Source CLEAN C 01/04/18 17:35 Urine Color YELLOW 01/04/18 17:35 Urine Clarity CLEAR (CLEAR) 01/04/18 17:35 Urine pH 7.0 (4.6 - 8.0) 01/04/18 17:35 Ur Specific [place] 1.025 (1.005-1.030) 01/04/18 17:35 Urine Protein 100 mg/dL (NEGATIVE) H 01/04/18 17:35 Urine Glucose (UA) 250 mg/dL (NEGATIVE) H 01/04/18 17:35 Urine Ketones NEGATIVE mg/dL (NEGATIVE) 01/04/18 17:35 Urine Blood NEGATIVE (NEGATIVE) 01/04/18 17:35 Urine Nitrate NEGATIVE (NEGATIVE) 01/04/18 17:35 Urine Bilirubin NEGATIVE (NEGATIVE) 01/04/18 17:35 Urine Urobilinogen 1.0 E.U./dL (0.2 - 1.0) 01/04/18 17:35 Ur Leukocyte Esterase NEGATIVE (NEGATIVE) 01/04/18 17:35 Urine RBC 0-2 /hpf (0-5) H 01/04/18 17:35 Urine WBC 0-2 /hpf (0-5) 01/04/18 17:35 Ur Epithelial Cells RARE /lpf (FEW) 01/04/18 17:35 Urine Bacteria OCCASIONAL /hpf (NONE SEEN) 01/04/18 17:35 Salicylates < 25.0 mg/L (30.0-100.0) L 01/04/18 21:17 Urine Opiates Screen NEGATIVE (NEGATIVE) 01/04/18 17:35 Urine Methadone Screen NEGATIVE (NEGATIVE) 01/04/18 17:35 Acetaminophen < 10.0 ug/mL (10.0-30.0) L 01/04/18 21:17 Ur Barbiturates Screen NEGATIVE (NEGATIVE) 01/04/18 17:35 Ur Tricyclics Screen NEGATIVE (NEGATIVE) 01/04/18 17:35 Ur Phencyclidine Scrn NEGATIVE (NEGATIVE) 01/04/18 17:35 Amphetamines Screen NEGATIVE (NEGATIVE) 01/04/18 17:35 U Methamphetamines Scrn NEGATIVE (NEGATIVE) 01/04/18 17:35 U Benzodiazepines Scrn NEGATIVE (NEGATIVE) 01/04/18 17:35 U Cocaine Metab Screen NEGATIVE (NEGATIVE) 01/04/18 17:35 U Cannabinoids Screen NEGATIVE (NEGATIVE) 01/04/18 17:35 Ethyl Alcohol < 10 mg/dL (0-10) 01/04/18 21:17 RPR NONREACTIVE (NONREACTIVE) 01/04/18 21:17 - Physical Exam Vitals and I&O: Vital Signs Temp 97.2 F 01/06/18 14:13 Pulse 68 12/01/18 14:13 Resp 18 01/06/18 14:13 BP 120/66 01/06/18 14:13 Pulse Ox 94 01/06/18 14:13 Intake & Output 01/05/18 01/06/18 01/06/18 18:59 06:59 18:59 Intake Total 1300 Balance 1300 Intake: Oral 1300 Other: # Voids 3 # Bowel Movements 0 Stool Characteristics Soft Soft Soft Active Medications: Current Medications Acetaminophen (Tylenol) 650 mg PO Q6HR PRN PRN Reason: Pain or Fever >101 Stop: 03/06/18 00:07 Al Hydrox/Mg Hydrox/Simethicone (Maalox) 30 ml PO Q4HR PRN PRN Reason: GI DISTRESS Stop: 03/06/18 01:50 Amlodipine Besylate (Norvasc) 5 mg PO DAILY [facility] Stop: 03/06/18 08:59 Last Admin: 01/06/18 09:25 Dose: 5 mg Aspirin (Aspirin Chewable) 81 mg PO DAILY [facility] Stop: 03/06/18 08:59 Last Admin: 01/06/18 09:22 Dose: 81 mg Cholecalciferol (Vitamin D3) 1,000 iu PO DAILY [facility] Stop: 03/06/18 08:59 Last Admin: 01/06/18 09:22 Dose: 1,000 iu Divalproex Sodium (Depakote Sprinkle) 500 mg PO DAILY [facility]; Protocol Stop: 03/06/18 08:59 Last Admin: 01/06/18 09:22 Dose: 500 mg Docusate Sodium (Colace) 100 mg PO DAILY [facility] Stop: 03/06/18 08:59 Last Admin: 01/06/18 09:22 Dose: 100 mg Donepezil HCl (Aricept) 10 mg PO HS [facility] Stop: 03/06/18 20:59 Last Admin: 01/05/18 21:33 Dose: 10 mg Famotidine (Pepcid) 20 mg PO DAILY [facility] Stop: 03/06/18 08:59 Last Admin: 01/06/18 09:22 Dose: 20 mg Fenofibrate (Tricor) 134 mg PO HS [facility] Stop: 03/06/18 20:59 Last Admin: 01/05/18 21:33 Dose: 134 mg Insulin Aspart (Novolog Insulin Sliding Scale) 0 units SUBQ AC [facility]; Protocol Stop: 03/06/18 07:29 Last Admin: 01/06/18 11:33 Dose: Not Given Insulin Detemir (Levemir Insulin) 25 units SUBQ BID [facility]; Protocol Stop: 03/06/18 08:59 Last Admin: 01/06/18 09:39 Dose: Not Given Lorazepam (Ativan) 0.5 mg PO Q6HR PRN; Protocol PRN Reason: Anxiety Stop: 02/04/18 01:47 Magnesium Hydroxide (Milk Of Magnesia) 30 ml PO HS PRN PRN Reason: Constipation Memantine (Namenda) 10 mg PO BID [facility] Stop: 03/06/18 08:59 Last Admin: 01/06/18 09:23 Dose: 10 mg Metoprolol Tartrate (Lopressor) 25 mg PO DAILY [facility] Stop: 03/06/18 08:59 Last Admin: 01/06/18 09:24 Dose: 25 mg Petrolatum (Zinc Oxide) 1 appl TP TID [facility] Stop: 03/06/18 13:59 Last Admin: 01/06/18 13:44 Dose: 1 appl Risperidone (Risperdal) 0.5 mg PO HS [facility]; Protocol Stop: 03/06/18 20:59 Last Admin: 01/05/18 21:33 Dose: 0.5 mg Tramadol HCl (Ultram) 50 mg PO QID PRN PRN Reason: Pain (Moderate) Stop: 03/06/18 00:11 Last Admin: 01/05/18 22:24 Dose: 50 mg Zolpidem Tartrate (Ambien) 5 mg PO HS PRN PRN Reason: Insomnia Stop: 03/06/18 01:50 General: alert HEENT: NC/AT, PERRLA Neck: Supple Lungs: CTAB Cardiovascular: RRR, Normal S1, Normal S2, without murmur Abdomen: soft, non-tender, non-distended, positive bowel sound Internal Medicine Assmt/Plan - Assessment Assessment: agitation HTN DM Asthma COPD Dyslipidemia GERD Dementia chronic renal disease Alzheimer disease Schizophrenia Dementia mrsa nares - Plan Plan: bactroban bid fall precautions supplemental o2 as needed continue current orders Nutritional Asmnt/Malnutr-PDOC - Dietary Evaluation Malnutrition Findings (Please click <Entered> for more info): Nutritional Asmnt/Malnutrition Start: 01/05/18 15: 26 Text: Status: Complete Freq: Protocol: Document 01/05/18 15:26 COLT (Rec: 01/05/18 15:46 COLT [email or web address]) Nutritional Asmnt/Malnutrition Patient General Information Nutritional Screening High Risk Consult Diagnosis psychosis NOS Pertinent Medical Hx/Surgical Hx HTN, DM, asthma/COPD, dyslipidemia, PUD/GERD, dementia, chronic renal disease, Alzheimer disease, schizophrenia Subjective Information Received nutrition consult for HTN and DM. Pt finished 50% lunch today during visit. Pt's guinean speaking; MANAGER TRACK present to translate. Pt states he's not hungry at lunch today and states he likes coffee. Per MANAGER TRACKClementine Gallagher, pt finished 100% breakfast today. Pt does not appear ready for education yet . Current Diet Order/ Nutrition Support [facility] soft chopped, CHRIS, CCHO Pertinent Medications Vit D3, colace, pepcid, tricor , novolog, levemir, zinc oxide , risperdal Pertinent Labs 01/04: glucose 232, BUN 30, Cr 1.6, Alb 3.8 Nutritional Hx/Data Height 5 ft 2 in Height (Calculated Centimeters) 157.5 Current Weight (lbs) 165 lb Weight (Calculated Kilograms) 74.8 Weight (Calculated Grams) 10832.7 [place] Body Weight 118 lb Body Mass Index (BMI) 30.2 Weight Status Obese GI Symptoms GI Symptoms None Last BM none noted Difficult in: None Food Allergies No Skin Integrity/Comment: naresh gipson 21 Estimated Nutritional Goals BEE in Kcals: Using Current wt Calories/Kcals/Kg 20-25 Kcals Calculated 9267-9221 Protein: Using Current wt Protein g/k.8 Protein Calculated 60 g (monitor renal labs) Fluid: ml [id number] Nutritional Problem 1. Problem Problem Altered nutrition related lab values Etiology endocrine dysfunction, renal dysfunction Signs/Symptoms: glucose 232, BUN 30, Cr 1.6 Malnutrition Alert Is there a minimum of two criteria No selected? Query Text:Check all the applicable criteria. A minimum of two criteria are recommended for diagnosis of either severe or non-severe malnutrition. Malnutrition Related to Morbid Obesity Malnutrition related to morbid obesity No Intervention/Recommendation Comments 1. Continue with [facility] soft chopped, CHRIS, CCHO diet as ordered. MD to manage insulin regimen for optimal glycemic control 2. Monitor PO intake, wt, skin integrity and nutrition related labs 3. F/U as moderate risk in 3-5 days, 01/08- Expected Outcomes/Goals Expected Outcomes/Goals 1. PO intake to meet at least 75% of all meals 2. Wt stability, skin to remain intact, and nutrition related labs to approach normal limits Reviewed by Ana Laura Monet RD
[2018-01-06] MEDS: Fenofibrate, Micronized 134 mg Cap PO SCH (20:19)
--- NOTE | 2018-01-07 00:13 | Psychiatric Evaluation ---
DATE OF SERVICE: 01/06/2018 PSYCHIATRIC INITIAL EVALUATION MENTAL STATUS EXAM AGE: 82. SEX: Male. PHYSICIAN: Dr. Velasquez. CHIEF COMPLAINT: Agitation and irritability. HISTORY OF PRESENT ILLNESS: The patient is an 82-year-old male who was transferred from [facility] because of increased agitation and because of irritability. The patient has been irritable mood and has not been able to follow any of staff directions and his behavior has been deteriorating lately. The patient also has been forgetful and has been talking to self and seems to be actively responding to stimuli. Also, personal hygiene much deteriorated. He also needs lots of redirections and help with his ADLs as well as his ____. PAST PSYCHIATRIC HISTORY: The patient has history of dementia. PAST MEDICAL HISTORY: The patient has history of anemia and chronic kidney disease. Also, he has hypertension and unspecified abnormalities of gait. Also, has chronic obstructive pulmonary disease. SOCIAL HISTORY: No known alcohol or street drug use. ALLERGIES: No known allergies. MENTAL STATUS EXAMINATION: The patient appears slightly older than his stated age. Anxious. Irritable mood. Flat affect. Thought processes are mainly goal directed. He is unable to answer questions coherently and he had poverty of speech. The patient denies any auditory or visual hallucinations, but actively responding to stimuli. The patient denied suicidal or homicidal ideation. The patient is alert and oriented to situation, but not to the place or person or date. Impaired immediate and recent memory are intact, remote memory and he remembered his date. Poor insight and poor judgment. ASSESSMENT: PRIMARY DIAGNOSIS: Unspecified psychosis. SECONDARY DIAGNOSIS: Dementia, moderate to severe, with behavioral disturbances. MEDICAL DIAGNOSES: 1. Anemia. 2. Chronic obstructive pulmonary disease. 3. Chronic kidney disease. TREATMENT PLAN: Monitor patient's behavior and condition closely. We will monitor use of psychotropic medications. Also, we will work on behavioral modification. ESTIMATED LENGTH OF STAY: 5-7 days. THE PATIENT'S STRENGTHS AND WEAKNESSES: The patient's strength is not clear except he is in relatively fair health. Weaknesses is his poor impulse control and his dementia. AFTER DISCHARGE PLAN: The patient will return to [facility] with plans for outpatient treatment there. CRITERIA FOR DISCHARGE: Stabilization of psychotropic medications and establish treatment plans. JOB# [id number]
--- NOTE | 2018-01-07 00:16 | Progress Notes ---
DATE: 01/06/2018 SUBJECTIVE: The patient was seen, chart reviewed, and findings were discussed with staff. The patient originally came here from [facility] due to physical aggression, has a history of schizophrenia and dementia. The patient is a Armenian speaking, but according to staff, he has had good sleep, appetite and generally been redirectable, compliant with all medications and has not required any p.r.n. medications since arrival. PLAN: The patient continues to be psychotic, confused, unable to care for himself, so that he will require inpatient care center treatment. We will monitor patient on a daily basis for response to medications and titrate medication as needed. JOB# [id number]
[2018-01-07] MEDS: INSULIN ASPART SLIDING SCALE 100 UNITS/ML UNIT SUBQ SCH ×3 (06:30→16:07)
[2018-01-07] MEDS: Aspirin 81mg Chewable Tab PO SCH (08:33)
[2018-01-07] MEDS: Insulin Detemir 100 units/mL 10mL Vial SUBQ SCH ×2 (08:34→15:59)
[2018-01-07] MEDS: Zinc Oxide Ointment 60 gm TP SCH ×4 (09:35→20:04)
--- NOTE | 2018-01-07 11:44 | Internal Medicine Prog Note ---
Internal Medicine Subjective - Subjective Service Date: 01/07/18 Patient is:: awake Per staff patient has:: no adverse event, tolerating meds Internal Medicine Objective - Results Result Diagrams: 01/04/18 21:17 01/04/18 21:17 Recent Labs: Laboratory Last Values WBC 7.5 Th/cmm (4.8-10.8) 01/04/18 21:17 RBC 3.96 Mil/cmm (3.80-5.80) 01/04/18 21:17 Hgb 11.4 gm/dL (12-16) L 01/04/18 21:17 Hct 34.1 % (41.0-60) L 01/04/18 21:17 MCV 86.1 fl (80-99) 01/04/18 21:17 MCH 28.7 pg (27.0-31.0) 01/04/18 21:17 MCHC Differential 33.3 pg (28.0-36.0) 01/04/18 21:17 RDW 14.4 % (11.5-20.0) 01/04/18 21:17 Plt Count 246 Th/cmm (150-400) 01/04/18 21:17 MPV 8.2 fl 01/04/18 21:17 Neutrophils % 61.9 % (40.0-80.0) 01/04/18 21:17 Lymphocytes % 25.2 % (20.0-50.0) 01/04/18 21:17 Monocytes % 7.5 % (2.0-10.0) 01/04/18 21:17 Eosinophils % 5.0 % (0.0-5.0) 01/04/18 21:17 Basophils % 0.4 % (0.0-2.0) 01/04/18 21:17 Sodium 137 mEq/L (136-145) 01/04/18 21:17 Potassium 4.3 mEq/L (3.5-5.1) 01/04/18 21:17 Chloride 101 mEq/L (98-107) 01/04/18 21:17 Carbon Dioxide 27.6 mEq/L (21.0-31.0) 01/04/18 21:17 Anion Gap 12.7 (7.0-16.0) 01/04/18 21:17 BUN 30 mg/dL (7-25) H 01/04/18 21:17 Creatinine 1.6 mg/dL (0.7-1.3) H 01/04/18 21:17 Est GFR ( Amer) TNP 01/04/18 21:17 Est GFR (Non-Af Amer) TNP 01/04/18 21:17 BUN/Creatinine Ratio 18.8 01/04/18 21:17 Glucose 232 mg/dL (70-105) H 01/04/18 21:17 Calcium 9.2 mg/dL (8.6-10.3) 01/04/18 21:17 Total Bilirubin 0.3 mg/dL (0.3-1.0) 01/04/18 21:17 AST 13 U/L (13-39) 01/04/18 21:17 ALT 11 U/L (7-52) 01/04/18 21:17 Alkaline Phosphatase 56 U/L (34-104) 01/04/18 21:17 Total Protein 7.0 gm/dL (6.0-8.3) 01/04/18 21:17 Albumin 3.8 gm/dL (4.2-5.5) L 01/04/18 21:17 Globulin 3.2 gm/dL 01/04/18 21:17 Albumin/Globulin Ratio 1.2 (1.0-1.8) 01/04/18 21:17 Triglycerides 149 mg/dL (<150) 01/05/18 00:48 Cholesterol 118 mg/dL (<200) 01/05/18 00:48 LDL Cholesterol Direct 75 mg/dL (75-193) 01/05/18 00:48 HDL Cholesterol 37 mg/dL (23-92) 01/05/18 00:48 TSH 3.43 uIU/ml (0.34-5.60) 01/04/18 21:17 Urine Source CLEAN C 01/04/18 17:35 Urine Color YELLOW 01/04/18 17:35 Urine Clarity CLEAR (CLEAR) 01/04/18 17:35 Urine pH 7.0 (4.6 - 8.0) 01/04/18 17:35 Ur Specific [place] 1.025 (1.005-1.030) 01/04/18 17:35 Urine Protein 100 mg/dL (NEGATIVE) H 01/04/18 17:35 Urine Glucose (UA) 250 mg/dL (NEGATIVE) H 01/04/18 17:35 Urine Ketones NEGATIVE mg/dL (NEGATIVE) 01/04/18 17:35 Urine Blood NEGATIVE (NEGATIVE) 01/04/18 17:35 Urine Nitrate NEGATIVE (NEGATIVE) 01/04/18 17:35 Urine Bilirubin NEGATIVE (NEGATIVE) 01/04/18 17:35 Urine Urobilinogen 1.0 E.U./dL (0.2 - 1.0) 01/04/18 17:35 Ur Leukocyte Esterase NEGATIVE (NEGATIVE) 01/04/18 17:35 Urine RBC 0-2 /hpf (0-5) H 01/04/18 17:35 Urine WBC 0-2 /hpf (0-5) 01/04/18 17:35 Ur Epithelial Cells RARE /lpf (FEW) 01/04/18 17:35 Urine Bacteria OCCASIONAL /hpf (NONE SEEN) 01/04/18 17:35 Salicylates < 25.0 mg/L (30.0-100.0) L 01/04/18 21:17 Urine Opiates Screen NEGATIVE (NEGATIVE) 01/04/18 17:35 Urine Methadone Screen NEGATIVE (NEGATIVE) 01/04/18 17:35 Acetaminophen < 10.0 ug/mL (10.0-30.0) L 01/04/18 21:17 Ur Barbiturates Screen NEGATIVE (NEGATIVE) 01/04/18 17:35 Ur Tricyclics Screen NEGATIVE (NEGATIVE) 01/04/18 17:35 Ur Phencyclidine Scrn NEGATIVE (NEGATIVE) 01/04/18 17:35 Amphetamines Screen NEGATIVE (NEGATIVE) 01/04/18 17:35 U Methamphetamines Scrn NEGATIVE (NEGATIVE) 01/04/18 17:35 U Benzodiazepines Scrn NEGATIVE (NEGATIVE) 01/04/18 17:35 U Cocaine Metab Screen NEGATIVE (NEGATIVE) 01/04/18 17:35 U Cannabinoids Screen NEGATIVE (NEGATIVE) 01/04/18 17:35 Ethyl Alcohol < 10 mg/dL (0-10) 01/04/18 21:17 RPR NONREACTIVE (NONREACTIVE) 01/04/18 21:17 - Physical Exam Vitals and I&O: Vital Signs Temp 97.6 F 01/07/18 05:04 Pulse 71 01/07/18 08:35 Resp 18 01/07/18 05:04 BP 138/60 01/07/18 08:35 Pulse Ox 97 01/07/18 05:04 Intake & Output 01/06/18 01/07/18 01/07/18 18:59 06:59 18:59 Intake Total 240 Balance 240 Intake: Oral 240 Other: # Voids 1 2 # Bowel Movements 0 Stool Characteristics Soft Soft Soft Active Medications: Current Medications Acetaminophen (Tylenol) 650 mg PO Q6HR PRN PRN Reason: Pain or Fever >101 Stop: 03/06/18 00:07 Al Hydrox/Mg Hydrox/Simethicone (Maalox) 30 ml PO Q4HR PRN PRN Reason: GI DISTRESS Stop: 03/06/18 01:50 Amlodipine Besylate (Norvasc) 5 mg PO DAILY [facility] Stop: 03/06/18 08:59 Last Admin: 01/07/18 08:32 Dose: 5 mg Aspirin (Aspirin Chewable) 81 mg PO DAILY [facility] Stop: 03/06/18 08:59 Last Admin: 01/07/18 08:33 Dose: 81 mg Cholecalciferol (Vitamin D3) 1,000 iu PO DAILY [facility] Stop: 03/06/18 08:59 Last Admin: 01/07/18 09:15 Dose: 1,000 iu Divalproex Sodium (Depakote Sprinkle) 500 mg PO DAILY [facility]; Protocol Stop: 03/06/18 08:59 Last Admin: 01/07/18 08:33 Dose: 500 mg Docusate Sodium (Colace) 100 mg PO DAILY [facility] Stop: 03/06/18 08:59 Last Admin: 01/07/18 08:33 Dose: 100 mg Donepezil HCl (Aricept) 10 mg PO [facility] Stop: 03/06/18 20:59 Last Admin: 01/06/18 20:19 Dose: 10 mg Famotidine (Pepcid) 20 mg PO DAILY [facility] Stop: 03/06/18 08:59 Last Admin: 01/07/18 08:34 Dose: 20 mg Fenofibrate (Tricor) 134 mg PO HS [facility] Stop: 03/06/18 20:59 Last Admin: 01/06/18 20:19 Dose: 134 mg Insulin Aspart (Novolog Insulin Sliding Scale) 0 units SUBQ AC [facility]; Protocol Stop: 03/06/18 07:29 Last Admin: 01/07/18 06:30 Dose: Not Given Insulin Detemir (Levemir Insulin) 25 units SUBQ BID [facility]; Protocol Stop: 03/06/18 08:59 Last Admin: 01/07/18 08:34 Dose: Not Given Lorazepam (Ativan) 0.5 mg PO Q6HR PRN; Protocol PRN Reason: Anxiety Stop: 02/04/18 01:47 Magnesium Hydroxide (Milk Of Magnesia) 30 ml PO HS PRN PRN Reason: Constipation Memantine (Namenda) 10 mg PO BID [facility] Stop: 03/06/18 08:59 Last Admin: 01/07/18 08:35 Dose: 10 mg Metoprolol Tartrate (Lopressor) 25 mg PO DAILY [facility] Stop: 03/06/18 08:59 Last Admin: 01/07/18 08:35 Dose: 25 mg Mupirocin (Bactroban Oint) 1 appl NS BID [facility] Stop: 01/11/18 09:01 Last Admin: 01/07/18 09:34 Dose: 1 appl Petrolatum (Zinc Oxide) 1 appl TP TID [facility] Stop: 03/06/18 13:59 Last Admin: 01/07/18 09:41 Dose: 1 appl Risperidone (Risperdal) 0.5 mg PO HS [facility]; Protocol Stop: 03/06/18 20:59 Last Admin: 01/06/18 20:19 Dose: 0.5 mg Tramadol HCl (Ultram) 50 mg PO QID PRN PRN Reason: Pain (Moderate) Stop: 03/06/18 00:11 Last Admin: 01/06/18 16:59 Dose: 50 mg Zolpidem Tartrate (Ambien) 5 mg PO HS PRN PRN Reason: Insomnia Stop: 03/06/18 01:50 General: alert HEENT: NC/AT, PERRLA Neck: Supple Lungs: CTAB Cardiovascular: RRR, Normal S1, Normal S2, without murmur Abdomen: soft, non-tender, non-distended, positive bowel sound Internal Medicine Assmt/Plan - Assessment Assessment: agitation HTN DM Asthma COPD Dyslipidemia GERD Dementia chronic renal disease Alzheimer disease Schizophrenia Dementia mrsa nares - Plan Plan: bactroban bid fall precautions supplemental o2 as needed continue current orders Nutritional Asmnt/Malnutr-PDOC - Dietary Evaluation Malnutrition Findings (Please click <Entered> for more info): Nutritional Asmnt/Malnutrition Start: 01/05/18 15: 26 Text: Status: Complete Freq: Protocol: Document 01/05/18 15:26 COLT (Rec: 01/05/18 15:46 COLT [email or web address]) Nutritional Asmnt/Malnutrition Patient General Information Nutritional Screening High Risk Consult Diagnosis psychosis NOS Pertinent Medical Hx/Surgical Hx HTN, DM, asthma/COPD, dyslipidemia, PUD/GERD, dementia, chronic renal disease, Alzheimer disease, schizophrenia Subjective Information Received nutrition consult for HTN and DM. Pt finished 50% lunch today during visit. Pt's guinean speaking; CHIEF CLIENT OFFICER present to translate. Pt states he's not hungry at lunch today and states he likes coffee. Per CHIEF CLIENT OFFICERClementine Gallagher, pt finished 100% breakfast today. Pt does not appear ready for education yet . Current Diet Order/ Nutrition Support [facility] soft chopped, CHRIS, CCHO Pertinent Medications Vit D3, colace, pepcid, tricor , novolog, levemir, zinc oxide , risperdal Pertinent Labs 01/04: glucose 232, BUN 30, Cr 1.6, Alb 3.8 Nutritional Hx/Data Height 5 ft 2 in Height (Calculated Centimeters) 157.5 Current Weight (lbs) 165 lb Weight (Calculated Kilograms) 74.8 Weight (Calculated Grams) 74651.7 [place] Body Weight 118 lb Body Mass Index (BMI) 30.2 Weight Status Obese GI Symptoms GI Symptoms None Last BM none noted Difficult in: None Food Allergies No Skin Integrity/Comment: brandan, naresh 21 Estimated Nutritional Goals BEE in Kcals: Using Current wt Calories/Kcals/Kg 20-25 Kcals Calculated 8764-6063 Protein: Using Current wt Protein g/k.8 Protein Calculated 60 g (monitor renal labs) Fluid: ml 3750-2255 Nutritional Problem 1. Problem Problem Altered nutrition related lab values Etiology endocrine dysfunction, renal dysfunction Signs/Symptoms: glucose 232, BUN 30, Cr 1.6 Malnutrition Alert Is there a minimum of two criteria No selected? Query Text:Check all the applicable criteria. A minimum of two criteria are recommended for diagnosis of either severe or non-severe malnutrition. Malnutrition Related to Morbid Obesity Malnutrition related to morbid obesity No Intervention/Recommendation Comments 1. Continue with [facility] soft chopped, CHRIS, CCHO diet as ordered. MD to manage insulin regimen for optimal glycemic control 2. Monitor PO intake, wt, skin integrity and nutrition related labs 3. F/U as moderate risk in 3-5 days, 01/08- Expected Outcomes/Goals Expected Outcomes/Goals 1. PO intake to meet at least 75% of all meals 2. Wt stability, skin to remain intact, and nutrition related labs to approach normal limits Reviewed by Ana Laura Monet RD
--- NOTE | 2018-01-07 16:17 | Progress Notes ---
DATE: 01/07/2018 SUBJECTIVE: The patient was seen, chart reviewed, and discussed with staff. The patient is resting comfortably in bed, not in acute distress, maintaining good eye contact. The patient is Slovenian speaking, but even with a fashion illustrator, he is unable to answer questions in a coherent manner. He has also been compliant with medications. PLAN: The patient continues to be actively psychotic, confused, unable to make a safe or realistic discharge plan, so that he will require continued inpatient care facility and treatment. We will monitor patient on a daily basis for response to medication and titrate medications as needed. JOB# [id number]
[2018-01-07] MEDS: Fenofibrate, Micronized 134 mg Cap PO SCH (20:03)
[2018-01-08] MEDS: INSULIN ASPART SLIDING SCALE 100 UNITS/ML UNIT SUBQ SCH ×3 (06:35→16:50)
[2018-01-08] MEDS: Aspirin 81mg Chewable Tab PO SCH (08:15)
[2018-01-08] MEDS: Zinc Oxide Ointment 60 gm TP SCH ×3 (08:33→21:10)
[2018-01-08] MEDS: Insulin Detemir 100 units/mL 10mL Vial SUBQ SCH ×2 (08:33→17:50)
[2018-01-08] MEDS ORDERED: Probiotic Screen MC PRN (09:00)
[2018-01-08] MEDS ORDERED: Lactobacillus Rhamnosus GG 15 Billion CFU CAP.SPRINK PO SCH (09:00)
--- NOTE | 2018-01-08 13:01 | Internal Medicine Prog Note ---
Internal Medicine Subjective - Subjective Service Date: 01/08/18 Patient is:: awake Per staff patient has:: no adverse event, tolerating meds Internal Medicine Objective - Results Result Diagrams: 01/04/18 21:17 01/04/18 21:17 Recent Labs: Laboratory Last Values WBC 7.5 Th/cmm (4.8-10.8) 01/04/18 21:17 RBC 3.96 Mil/cmm (3.80-5.80) 01/04/18 21:17 Hgb 11.4 gm/dL (12-16) L 01/04/18 21:17 Hct 34.1 % (41.0-60) L 01/04/18 21:17 MCV 86.1 fl (80-99) 01/04/18 21:17 MCH 28.7 pg (27.0-31.0) 01/04/18 21:17 MCHC Differential 33.3 pg (28.0-36.0) 01/04/18 21:17 RDW 14.4 % (11.5-20.0) 01/04/18 21:17 Plt Count 246 Th/cmm (150-400) 01/04/18 21:17 MPV 8.2 fl 01/04/18 21:17 Neutrophils % 61.9 % (40.0-80.0) 01/04/18 21:17 Lymphocytes % 25.2 % (20.0-50.0) 01/04/18 21:17 Monocytes % 7.5 % (2.0-10.0) 01/04/18 21:17 Eosinophils % 5.0 % (0.0-5.0) 01/04/18 21:17 Basophils % 0.4 % (0.0-2.0) 01/04/18 21:17 Sodium 137 mEq/L (136-145) 01/04/18 21:17 Potassium 4.3 mEq/L (3.5-5.1) 01/04/18 21:17 Chloride 101 mEq/L (98-107) 01/04/18 21:17 Carbon Dioxide 27.6 mEq/L (21.0-31.0) 01/04/18 21:17 Anion Gap 12.7 (7.0-16.0) 01/04/18 21:17 BUN 30 mg/dL (7-25) H 01/04/18 21:17 Creatinine 1.6 mg/dL (0.7-1.3) H 01/04/18 21:17 Est GFR ( Amer) TNP 01/04/18 21:17 Est GFR (Non-Af Amer) TNP 01/04/18 21:17 BUN/Creatinine Ratio 18.8 01/04/18 21:17 Glucose 232 mg/dL (70-105) H 01/04/18 21:17 Calcium 9.2 mg/dL (8.6-10.3) 01/04/18 21:17 Total Bilirubin 0.3 mg/dL (0.3-1.0) 01/04/18 21:17 AST 13 U/L (13-39) 01/04/18 21:17 ALT 11 U/L (7-52) 01/04/18 21:17 Alkaline Phosphatase 56 U/L (34-104) 01/04/18 21:17 Total Protein 7.0 gm/dL (6.0-8.3) 01/04/18 21:17 Albumin 3.8 gm/dL (4.2-5.5) L 01/04/18 21:17 Globulin 3.2 gm/dL 01/04/18 21:17 Albumin/Globulin Ratio 1.2 (1.0-1.8) 01/04/18 21:17 Triglycerides 149 mg/dL (<150) 01/05/18 00:48 Cholesterol 118 mg/dL (<200) 01/05/18 00:48 LDL Cholesterol Direct 75 mg/dL (75-193) 01/05/18 00:48 HDL Cholesterol 37 mg/dL (23-92) 01/05/18 00:48 TSH 3.43 uIU/ml (0.34-5.60) 01/04/18 21:17 Urine Source CLEAN C 01/04/18 17:35 Urine Color YELLOW 01/04/18 17:35 Urine Clarity CLEAR (CLEAR) 01/04/18 17:35 Urine pH 7.0 (4.6 - 8.0) 01/04/18 17:35 Ur Specific [place] 1.025 (1.005-1.030) 01/04/18 17:35 Urine Protein 100 mg/dL (NEGATIVE) H 01/04/18 17:35 Urine Glucose (UA) 250 mg/dL (NEGATIVE) H 01/04/18 17:35 Urine Ketones NEGATIVE mg/dL (NEGATIVE) 01/04/18 17:35 Urine Blood NEGATIVE (NEGATIVE) 01/04/18 17:35 Urine Nitrate NEGATIVE (NEGATIVE) 01/04/18 17:35 Urine Bilirubin NEGATIVE (NEGATIVE) 01/04/18 17:35 Urine Urobilinogen 1.0 E.U./dL (0.2 - 1.0) 01/04/18 17:35 Ur Leukocyte Esterase NEGATIVE (NEGATIVE) 01/04/18 17:35 Urine RBC 0-2 /hpf (0-5) H 01/04/18 17:35 Urine WBC 0-2 /hpf (0-5) 01/04/18 17:35 Ur Epithelial Cells RARE /lpf (FEW) 01/04/18 17:35 Urine Bacteria OCCASIONAL /hpf (NONE SEEN) 01/04/18 17:35 Salicylates < 25.0 mg/L (30.0-100.0) L 01/04/18 21:17 Urine Opiates Screen NEGATIVE (NEGATIVE) 01/04/18 17:35 Urine Methadone Screen NEGATIVE (NEGATIVE) 01/04/18 17:35 Acetaminophen < 10.0 ug/mL (10.0-30.0) L 01/04/18 21:17 Ur Barbiturates Screen NEGATIVE (NEGATIVE) 01/04/18 17:35 Ur Tricyclics Screen NEGATIVE (NEGATIVE) 01/04/18 17:35 Ur Phencyclidine Scrn NEGATIVE (NEGATIVE) 01/04/18 17:35 Amphetamines Screen NEGATIVE (NEGATIVE) 01/04/18 17:35 U Methamphetamines Scrn NEGATIVE (NEGATIVE) 01/04/18 17:35 U Benzodiazepines Scrn NEGATIVE (NEGATIVE) 01/04/18 17:35 U Cocaine Metab Screen NEGATIVE (NEGATIVE) 01/04/18 17:35 U Cannabinoids Screen NEGATIVE (NEGATIVE) 01/04/18 17:35 Ethyl Alcohol < 10 mg/dL (0-10) 01/04/18 21:17 RPR NONREACTIVE (NONREACTIVE) 01/04/18 21:17 - Physical Exam Vitals and I&O: Vital Signs Temp 97.6 F 01/08/18 04:41 Pulse 73 01/08/18 08:15 Resp 19 01/08/18 04:41 BP 118/72 01/08/18 08:15 Pulse Ox 98 01/08/18 04:41 Intake & Output 01/07/18 01/08/18 01/08/18 18:59 06:59 18:59 Intake Total 480 Balance 480 Intake: Oral 480 Other: # Voids 2 2 # Bowel Movements 0 Stool Characteristics Soft Active Medications: Current Medications Acetaminophen (Tylenol) 650 mg PO Q6HR PRN PRN Reason: Pain or Fever >101 Stop: 03/06/18 00:07 Last Admin: 01/08/18 11:31 Dose: 650 mg Al Hydrox/Mg Hydrox/Simethicone (Maalox) 30 ml PO Q4HR PRN PRN Reason: GI DISTRESS Stop: 03/06/18 01:50 Last Admin: 01/07/18 22:02 Dose: 30 ml Amlodipine Besylate (Norvasc) 5 mg PO DAILY [facility] Stop: 03/06/18 08:59 Last Admin: 01/08/18 08:15 Dose: 5 mg Aspirin (Aspirin Chewable) 81 mg PO DAILY [facility] Stop: 03/06/18 08:59 Last Admin: 01/08/18 08:15 Dose: 81 mg Cholecalciferol (Vitamin D3) 1,000 iu PO DAILY [facility] Stop: 03/06/18 08:59 Last Admin: 01/08/18 08:15 Dose: 1,000 iu Divalproex Sodium (Depakote Sprinkle) 500 mg PO DAILY [facility]; Protocol Stop: 03/06/18 08:59 Last Admin: 01/08/18 08:16 Dose: 500 mg Docusate Sodium (Colace) 100 mg PO DAILY [facility] Stop: 03/06/18 08:59 Last Admin: 01/08/18 08:15 Dose: 100 mg Donepezil HCl (Aricept) 10 mg PO HS [facility] Stop: 03/06/18 20:59 Last Admin: 01/07/18 20:03 Dose: 10 mg Famotidine (Pepcid) 20 mg PO DAILY [facility] Stop: 03/06/18 08:59 Last Admin: 01/08/18 08:15 Dose: 20 mg Fenofibrate (Tricor) 134 mg PO HS [facility] Stop: 03/06/18 20:59 Last Admin: 01/07/18 20:03 Dose: 134 mg Insulin Aspart (Novolog Insulin Sliding Scale) 0 units SUBQ AC [facility]; Protocol Stop: 03/06/18 07:29 Last Admin: 01/08/18 11:41 Dose: Not Given Insulin Detemir (Levemir Insulin) 25 units SUBQ BID [facility]; Protocol Stop: 03/06/18 08:59 Last Admin: 01/08/18 08:33 Dose: 25 units Lorazepam (Ativan) 0.5 mg PO Q6HR PRN; Protocol PRN Reason: Anxiety Stop: 02/04/18 01:47 Last Admin: 01/08/18 11:32 Dose: 0.5 mg Magnesium Hydroxide (Milk Of Magnesia) 30 ml PO HS PRN PRN Reason: Constipation Memantine (Namenda) 10 mg PO BID [facility] Stop: 03/06/18 08:59 Last Admin: 01/08/18 08:16 Dose: 10 mg Metoprolol Tartrate (Lopressor) 25 mg PO DAILY [facility] Stop: 03/06/18 08:59 Last Admin: 01/08/18 08:14 Dose: 25 mg Miscellaneous (Probiotic Screen) 1 ea MC PRN PRN PRN Reason: PROTOCOL Stop: 03/09/18 08:59 Mupirocin (Bactroban Oint) 1 appl NS BID [facility] Stop: 01/11/18 09:01 Last Admin: 01/08/18 08:33 Dose: 1 appl Petrolatum (Zinc Oxide) 1 appl TP TID [facility] Stop: 03/06/18 13:59 Last Admin: 01/08/18 08:33 Dose: 1 appl Risperidone (Risperdal) 0.5 mg PO BID [facility]; Protocol Stop: 03/09/18 08:59 Tramadol HCl (Ultram) 50 mg PO QID PRN PRN Reason: Pain (Moderate) Stop: 03/06/18 00:11 Last Admin: 01/08/18 06:36 Dose: 50 mg Zolpidem Tartrate (Ambien) 5 mg PO HS PRN PRN Reason: Insomnia Stop: 03/06/18 01:50 General: alert HEENT: NC/AT, PERRLA Neck: Supple Lungs: CTAB Cardiovascular: RRR, Normal S1, Normal S2, without murmur Abdomen: soft, non-tender, non-distended, positive bowel sound Internal Medicine Assmt/Plan - Assessment Assessment: agitation HTN DM Asthma COPD Dyslipidemia GERD Dementia chronic renal disease Alzheimer disease Schizophrenia Dementia mrsa nares - Plan Plan: bactroban bid fall precautions supplemental o2 as needed continue current orders Nutritional Asmnt/Malnutr-PDOC - Dietary Evaluation Malnutrition Findings (Please click <Entered> for more info): Nutritional Asmnt/Malnutrition Start: 01/05/18 15: 26 Text: Status: Complete Freq: Protocol: Document 01/05/18 15:26 COLT (Rec: 01/05/18 15:46 DYJUSTIN [email or web address]) Nutritional Asmnt/Malnutrition Patient General Information Nutritional Screening High Risk Consult Diagnosis psychosis NOS Pertinent Medical Hx/Surgical Hx HTN, DM, asthma/COPD, dyslipidemia, PUD/GERD, dementia, chronic renal disease, Alzheimer disease, schizophrenia Subjective Information Received nutrition consult for HTN and DM. Pt finished 50% lunch today during visit. Pt's [place] citizen speaking; COMMERCIAL GLAZIER present to translate. Pt states he's not hungry at lunch today and states he likes coffee. Per JUDITH Gallagher, pt finished 100% breakfast today. Pt does not appear ready for education yet . Current Diet Order/ Nutrition Support [facility] soft chopped, CHRIS, CCHO Pertinent Medications Vit D3, colace, pepcid, tricor , novolog, levemir, zinc oxide , risperdal Pertinent Labs 01/04: glucose 232, BUN 30, Cr 1.6, Alb 3.8 Nutritional Hx/Data Height 5 ft 2 in Height (Calculated Centimeters) 157.5 Current Weight (lbs) 165 lb Weight (Calculated Kilograms) 74.8 Weight (Calculated Grams) 48694.7 [place] Body Weight 118 lb Body Mass Index (BMI) 30.2 Weight Status Obese GI Symptoms GI Symptoms None Last BM none noted Difficult in: None Food Allergies No Skin Integrity/Comment: naresh gipson 21 Estimated Nutritional Goals BEE in Kcals: Using Current wt Calories/Kcals/Kg 20-25 Kcals Calculated 1850-1594 Protein: Using Current wt Protein g/k.8 Protein Calculated 60 g (monitor renal labs) Fluid: ml 5806-7179 Nutritional Problem 1. Problem Problem Altered nutrition related lab values Etiology endocrine dysfunction, renal dysfunction Signs/Symptoms: glucose 232, BUN 30, Cr 1.6 Malnutrition Alert Is there a minimum of two criteria No selected? Query Text:Check all the applicable criteria. A minimum of two criteria are recommended for diagnosis of either severe or non-severe malnutrition. Malnutrition Related to Morbid Obesity Malnutrition related to morbid obesity No Intervention/Recommendation Comments 1. Continue with [facility] soft chopped, CHRIS, CCHO diet as ordered. MD to manage insulin regimen for optimal glycemic control 2. Monitor PO intake, wt, skin integrity and nutrition related labs 3. F/U as moderate risk in 3-5 days, 01/08- Expected Outcomes/Goals Expected Outcomes/Goals 1. PO intake to meet at least 75% of all meals 2. Wt stability, skin to remain intact, and nutrition related labs to approach normal limits Reviewed by Ana Laura Monet RD
[2018-01-08] MEDS: Fenofibrate, Micronized 134 mg Cap PO SCH (21:10)
--- NOTE | 2018-01-09 05:21 | Progress Notes ---
DATE: SUBJECTIVE: Chart reviewed and the patient interviewed. Also discussed the patient's condition with the staff and reviewed records and labs. The patient is still confused and is still shouting to imaginary objects. He also is still unpredictable and complaining of pain in his right shoulder. He also is still easily agitated and in angry mood. Otherwise, the patient continued to comply with taking Risperdal with no side effects. ASSESSMENT: The patient is still unpredictable and still needs close monitoring. TREATMENT PLAN: We will continue adjusting psychotropic medications and we will increase Risperdal to 0.5 mg twice a day and we will continue to follow up. JOB# [id number]
[2018-01-09] MEDS: INSULIN ASPART SLIDING SCALE 100 UNITS/ML UNIT SUBQ SCH ×2 (07:00→12:03)
[2018-01-09] MEDS: Aspirin 81mg Chewable Tab PO SCH (09:34)
[2018-01-09] MEDS: Zinc Oxide Ointment 60 gm TP SCH (09:35)
[2018-01-09] MEDS: Insulin Detemir 100 units/mL 10mL Vial SUBQ SCH (09:39)
--- NOTE | 2018-01-09 14:14 | Internal Medicine Prog Note ---
Internal Medicine Subjective - Subjective Service Date: 01/09/18 Patient is:: awake Per staff patient has:: no adverse event, tolerating meds Internal Medicine Objective - Results Result Diagrams: 01/04/18 21:17 01/04/18 21:17 Recent Labs: Laboratory Last Values WBC 7.5 Th/cmm (4.8-10.8) 01/04/18 21:17 RBC 3.96 Mil/cmm (3.80-5.80) 01/04/18 21:17 Hgb 11.4 gm/dL (12-16) L 01/04/18 21:17 Hct 34.1 % (41.0-60) L 01/04/18 21:17 MCV 86.1 fl (80-99) 01/04/18 21:17 MCH 28.7 pg (27.0-31.0) 01/04/18 21:17 MCHC Differential 33.3 pg (28.0-36.0) 01/04/18 21:17 RDW 14.4 % (11.5-20.0) 01/04/18 21:17 Plt Count 246 Th/cmm (150-400) 01/04/18 21:17 MPV 8.2 fl 01/04/18 21:17 Neutrophils % 61.9 % (40.0-80.0) 01/04/18 21:17 Lymphocytes % 25.2 % (20.0-50.0) 01/04/18 21:17 Monocytes % 7.5 % (2.0-10.0) 01/04/18 21:17 Eosinophils % 5.0 % (0.0-5.0) 01/04/18 21:17 Basophils % 0.4 % (0.0-2.0) 01/04/18 21:17 Sodium 137 mEq/L (136-145) 01/04/18 21:17 Potassium 4.3 mEq/L (3.5-5.1) 01/04/18 21:17 Chloride 101 mEq/L (98-107) 01/04/18 21:17 Carbon Dioxide 27.6 mEq/L (21.0-31.0) 01/04/18 21:17 Anion Gap 12.7 (7.0-16.0) 01/04/18 21:17 BUN 30 mg/dL (7-25) H 01/04/18 21:17 Creatinine 1.6 mg/dL (0.7-1.3) H 01/04/18 21:17 Est GFR ( Amer) TNP 01/04/18 21:17 Est GFR (Non-Af Amer) TNP 01/04/18 21:17 BUN/Creatinine Ratio 18.8 01/04/18 21:17 Glucose 232 mg/dL (70-105) H 01/04/18 21:17 Calcium 9.2 mg/dL (8.6-10.3) 01/04/18 21:17 Total Bilirubin 0.3 mg/dL (0.3-1.0) 01/04/18 21:17 AST 13 U/L (13-39) 01/04/18 21:17 ALT 11 U/L (7-52) 01/04/18 21:17 Alkaline Phosphatase 56 U/L (34-104) 01/04/18 21:17 Total Protein 7.0 gm/dL (6.0-8.3) 01/04/18 21:17 Albumin 3.8 gm/dL (4.2-5.5) L 01/04/18 21:17 Globulin 3.2 gm/dL 01/04/18 21:17 Albumin/Globulin Ratio 1.2 (1.0-1.8) 01/04/18 21:17 Triglycerides 149 mg/dL (<150) 01/05/18 00:48 Cholesterol 118 mg/dL (<200) 01/05/18 00:48 LDL Cholesterol Direct 75 mg/dL (75-193) 01/05/18 00:48 HDL Cholesterol 37 mg/dL (23-92) 01/05/18 00:48 TSH 3.43 uIU/ml (0.34-5.60) 01/04/18 21:17 Urine Source CLEAN C 01/04/18 17:35 Urine Color YELLOW 01/04/18 17:35 Urine Clarity CLEAR (CLEAR) 01/04/18 17:35 Urine pH 7.0 (4.6 - 8.0) 01/04/18 17:35 Ur Specific [place] 1.025 (1.005-1.030) 01/04/18 17:35 Urine Protein 100 mg/dL (NEGATIVE) H 01/04/18 17:35 Urine Glucose (UA) 250 mg/dL (NEGATIVE) H 01/04/18 17:35 Urine Ketones NEGATIVE mg/dL (NEGATIVE) 01/04/18 17:35 Urine Blood NEGATIVE (NEGATIVE) 01/04/18 17:35 Urine Nitrate NEGATIVE (NEGATIVE) 01/04/18 17:35 Urine Bilirubin NEGATIVE (NEGATIVE) 01/04/18 17:35 Urine Urobilinogen 1.0 E.U./dL (0.2 - 1.0) 01/04/18 17:35 Ur Leukocyte Esterase NEGATIVE (NEGATIVE) 01/04/18 17:35 Urine RBC 0-2 /hpf (0-5) H 01/04/18 17:35 Urine WBC 0-2 /hpf (0-5) 01/04/18 17:35 Ur Epithelial Cells RARE /lpf (FEW) 01/04/18 17:35 Urine Bacteria OCCASIONAL /hpf (NONE SEEN) 01/04/18 17:35 Salicylates < 25.0 mg/L (30.0-100.0) L 01/04/18 21:17 Urine Opiates Screen NEGATIVE (NEGATIVE) 01/04/18 17:35 Urine Methadone Screen NEGATIVE (NEGATIVE) 01/04/18 17:35 Acetaminophen < 10.0 ug/mL (10.0-30.0) L 01/04/18 21:17 Ur Barbiturates Screen NEGATIVE (NEGATIVE) 01/04/18 17:35 Ur Tricyclics Screen NEGATIVE (NEGATIVE) 01/04/18 17:35 Ur Phencyclidine Scrn NEGATIVE (NEGATIVE) 01/04/18 17:35 Amphetamines Screen NEGATIVE (NEGATIVE) 01/04/18 17:35 U Methamphetamines Scrn NEGATIVE (NEGATIVE) 01/04/18 17:35 U Benzodiazepines Scrn NEGATIVE (NEGATIVE) 01/04/18 17:35 U Cocaine Metab Screen NEGATIVE (NEGATIVE) 01/04/18 17:35 U Cannabinoids Screen NEGATIVE (NEGATIVE) 01/04/18 17:35 Ethyl Alcohol < 10 mg/dL (0-10) 01/04/18 21:17 RPR NONREACTIVE (NONREACTIVE) 01/04/18 21:17 - Physical Exam Vitals and I&O: Vital Signs Temp 97.8 F 01/09/18 12:06 Pulse 67 01/09/18 12:06 Resp 18 01/09/18 12:06 BP 109/57 01/09/18 12:06 Pulse Ox 94 01/09/18 12:06 Intake & Output 01/08/18 01/09/18 01/09/18 18:59 06:59 18:59 Intake Total 1900 240 Balance 1900 240 Intake: Oral 1900 240 Other: # Voids 4 2 # Bowel Movements 1 Active Medications: Current Medications Acetaminophen (Tylenol) 650 mg PO Q6HR PRN PRN Reason: Pain or Fever >101 Stop: 03/06/18 00:07 Last Admin: 01/08/18 11:31 Dose: 650 mg Al Hydrox/Mg Hydrox/Simethicone (Maalox) 30 ml PO Q4HR PRN PRN Reason: GI DISTRESS Stop: 03/06/18 01:50 Last Admin: 01/07/18 22:02 Dose: 30 ml Amlodipine Besylate (Norvasc) 5 mg PO DAILY [facility] Stop: 03/06/18 08:59 Last Admin: 01/09/18 09:39 Dose: Not Given Aspirin (Aspirin Chewable) 81 mg PO DAILY [facility] Stop: 03/06/18 08:59 Last Admin: 01/09/18 09:34 Dose: 81 mg Cholecalciferol (Vitamin D3) 1,000 iu PO DAILY [facility] Stop: 03/06/18 08:59 Last Admin: 01/09/18 09:34 Dose: 1,000 iu Divalproex Sodium (Depakote Sprinkle) 500 mg PO DAILY [facility]; Protocol Stop: 03/06/18 08:59 Last Admin: 01/09/18 09:33 Dose: 500 mg Docusate Sodium (Colace) 100 mg PO DAILY [facility] Stop: 03/06/18 08:59 Last Admin: 01/09/18 09:33 Dose: 100 mg Donepezil HCl (Aricept) 10 mg PO HS [facility] Stop: 03/06/18 20:59 Last Admin: 01/08/18 21:10 Dose: 10 mg Famotidine (Pepcid) 20 mg PO DAILY [facility] Stop: 03/06/18 08:59 Last Admin: 01/09/18 09:34 Dose: 20 mg Fenofibrate (Tricor) 134 mg PO HS [facility] Stop: 03/06/18 20:59 Last Admin: 01/08/18 21:10 Dose: 134 mg Insulin Aspart (Novolog Insulin Sliding Scale) 0 units SUBQ AC [facility]; Protocol Stop: 03/06/18 07:29 Last Admin: 01/09/18 12:03 Dose: Not Given Insulin Detemir (Levemir Insulin) 25 units SUBQ BID [facility]; Protocol Stop: 03/06/18 08:59 Last Admin: 01/09/18 09:39 Dose: Not Given Lorazepam (Ativan) 0.5 mg PO Q6HR PRN; Protocol PRN Reason: Anxiety Stop: 02/04/18 01:47 Last Admin: 01/08/18 11:32 Dose: 0.5 mg Magnesium Hydroxide (Milk Of Magnesia) 30 ml PO HS PRN PRN Reason: Constipation Memantine (Namenda) 10 mg PO BID [facility] Stop: 03/06/18 08:59 Last Admin: 01/09/18 09:34 Dose: 10 mg Metoprolol Tartrate (Lopressor) 25 mg PO DAILY [facility] Stop: 03/06/18 08:59 Last Admin: 01/09/18 09:40 Dose: Not Given Miscellaneous (Probiotic Screen) 1 ea MC PRN PRN PRN Reason: PROTOCOL Stop: 03/09/18 08:59 Mupirocin (Bactroban Oint) 1 appl NS BID [facility] Stop: 01/11/18 09:01 Last Admin: 01/09/18 09:35 Dose: 1 appl Petrolatum (Zinc Oxide) 1 appl TP TID [facility] Stop: 03/06/18 13:59 Last Admin: 01/09/18 09:35 Dose: 1 appl Risperidone (Risperdal) 0.5 mg PO BID [facility]; Protocol Stop: 03/09/18 08:59 Last Admin: 01/09/18 09:38 Dose: 0.5 mg Tramadol HCl (Ultram) 50 mg PO QID PRN PRN Reason: Pain (Moderate) Stop: 03/06/18 00:11 Last Admin: 01/08/18 06:36 Dose: 50 mg Zolpidem Tartrate (Ambien) 5 mg PO HS PRN PRN Reason: Insomnia Stop: 03/06/18 01:50 General: alert HEENT: NC/AT, PERRLA Neck: Supple Lungs: CTAB Cardiovascular: RRR, Normal S1, Normal S2, without murmur Abdomen: soft, non-tender, non-distended, positive bowel sound Internal Medicine Assmt/Plan - Assessment Assessment: agitation HTN DM Asthma COPD Dyslipidemia GERD Dementia chronic renal disease Alzheimer disease Schizophrenia Dementia mrsa nares - Plan Plan: fall precautions supplemental o2 as needed continue current orders Nutritional Asmnt/Malnutr-PDOC - Dietary Evaluation Malnutrition Findings (Please click <Entered> for more info): Nutritional Asmnt/Malnutrition Start: 01/05/18 15: 26 Text: Status: Complete Freq: Protocol: Document 01/05/18 15:26 COLT (Rec: 01/05/18 15:46 DYJUSTIN [email or web address]) Nutritional Asmnt/Malnutrition Patient General Information Nutritional Screening High Risk Consult Diagnosis psychosis NOS Pertinent Medical Hx/Surgical Hx HTN, DM, asthma/COPD, dyslipidemia, PUD/GERD, dementia, chronic renal disease, Alzheimer disease, schizophrenia Subjective Information Received nutrition consult for HTN and DM. Pt finished 50% lunch today during visit. Pt's greenlandic speaking; TRANSMISSION SPECIALIST present to translate. Pt states he's not hungry at lunch today and states he likes coffee. Per JUDITH Gallagher, pt finished 100% breakfast today. Pt does not appear ready for education yet . Current Diet Order/ Nutrition Support mech soft chopped, CHRIS, CCHO Pertinent Medications Vit D3, colace, pepcid, tricor , novolog, levemir, zinc oxide , risperdal Pertinent Labs 01/04: glucose 232, BUN 30, Cr 1.6, Alb 3.8 Nutritional Hx/Data Height 5 ft 2 in Height (Calculated Centimeters) 157.5 Current Weight (lbs) 165 lb Weight (Calculated Kilograms) 74.8 Weight (Calculated Grams) 15326.7 [place] Body Weight 118 lb Body Mass Index (BMI) 30.2 Weight Status Obese GI Symptoms GI Symptoms None Last BM none noted Difficult in: None Food Allergies No Skin Integrity/Comment: naresh gipson 21 Estimated Nutritional Goals BEE in Kcals: Using Current wt Calories/Kcals/Kg 20-25 Kcals Calculated 7351-8750 Protein: Using Current wt Protein g/k.8 Protein Calculated 60 g (monitor renal labs) Fluid: ml 2885-1430 Nutritional Problem 1. Problem Problem Altered nutrition related lab values Etiology endocrine dysfunction, renal dysfunction Signs/Symptoms: glucose 232, BUN 30, Cr 1.6 Malnutrition Alert Is there a minimum of two criteria No selected? Query Text:Check all the applicable criteria. A minimum of two criteria are recommended for diagnosis of either severe or non-severe malnutrition. Malnutrition Related to Morbid Obesity Malnutrition related to morbid obesity No Intervention/Recommendation Comments 1. Continue with [facility] soft chopped, CHRIS, CCHO diet as ordered. MD to manage insulin regimen for optimal glycemic control 2. Monitor PO intake, wt, skin integrity and nutrition related labs 3. F/U as moderate risk in 3-5 days, /- Expected Outcomes/Goals Expected Outcomes/Goals 1. PO intake to meet at least 75% of all meals 2. Wt stability, skin to remain intact, and nutrition related labs to approach normal limits Reviewed by Ana Laura Monet RD
--- NOTE | 2018-01-11 08:12 | Discharge Summary ---
DATE OF DISCHARGE: 01/09/2018 PATIENT'S AGE: 82. SEX: Male. PHYSICIAN: Dr. Velasquez. FINAL PRIMARY DIAGNOSIS/PRIMARY DIAGNOSIS: Unspecified psychosis. SECONDARY DIAGNOSIS: Dementia, moderate to severe, with behavioral disturbances. MEDICAL DIAGNOSES: Chronic obstructive pulmonary disease and chronic kidney disease. REASON FOR HOSPITALIZATION: The patient was admitted to the hospital from [facility] because of increased agitation and irritability. HOSPITAL COURSE: The patient continued to be agitated and in irritable mood. The patient needed lots of redirections. He also wanted to be left alone. The patient was given Depakote in a dose of 500 mg every day and Aricept 10 mg every day. Also, Risperdal was added at a dose of 0.5 mg twice a day. Also, continue to take Namenda 10 mg twice a day. Gradually, the patient's affect was brighter. The patient was less irritable and less agitated. Also, interacted more with others. The patient was discharged from the hospital. Physical exam of the patient showed no major medical problems. The patient has no major medical problems while in the hospital and blood sugar was under control. AFTER DISCHARGE PLANS: The patient discharged from the hospital and return to [place] with the plan for followup there. EXPECTED OUTCOME AFTER DISCHARGE: Fair if the patient continued to take psychotropic medications and follow up with discharge plans. [facility]# [id number]
== END 2018-01-09 14:00 | DRG 885 ==
LOC: ER 20:42 → GERO2 22:50
PROVIDERS: ADMIT Psychiatry & Neurology Psychiatry; ATTEND Psychiatry & Neurology Psychiatry
DX: F29 Unspecified psychosis not due to a substance or known physiological condition (principal); N18.9 Chronic kidney disease, unspecified; F02.81 Dementia in other diseases classified elsewhere, unspecified severity, with behavioral disturbance; I12.9 Hypertensive chronic kidney disease with stage 1 through stage 4 chronic kidney disease, or unspecified chronic kidney disease; E11.22 Type 2 diabetes mellitus with diabetic chronic kidney disease; J44.9 Chronic obstructive pulmonary disease, unspecified; E78.5 Hyperlipidemia, unspecified; K21.9 Gastro-esophageal reflux disease without esophagitis; G30.9 Alzheimer's disease, unspecified; F02.80 Dementia in other diseases classified elsewhere, unspecified severity, without behavioral disturbance, psychotic disturbance, mood disturbance, and anxiety; F20.9 Schizophrenia, unspecified; Z88.8 Allergy status to other drugs, medicaments and biological substances; Z79.4 Long term (current) use of insulin
CPT/HCPCS: 36415-UA; 73030-TC-RT; 80053-TC; 80061-TC; 80307; 80320-TC; 80329-TC; 81001-TC; 83036-90; 84443-TC; 85025-TC; 86592-TC; 93005; J1815; Z7610

== ENCOUNTER 2018-09-18 20:25 | Inpatient (IN) | payer MEDICARE, OTHER ==
--- NOTE | 2018-09-18 20:54 | ED Physician Chart ---
ED Chief Complaint/HPI - Patient Information Date Seen:: 09/18/18 Time Seen:: 20:54 Chief Complaint:: Agitation History of Present Illness:: 83 yo male was brought from board and care to ER for evaluation of agitation, sexually inappropriate behavior and aggressive behavior. Allergies:: Allergies Allergy/AdvReac Type Severity Reaction Status Date / Time rivaroxaban [From Xarelto] Allergy Verified 08/20/16 19:27 ED Review of Systems - Review of Systems General/Constitutional: No fever Skin: No skin lesions Head: No headache Eyes: No pain ENT: No nasal drainage Neck: No neck pain Cardio Vascular: No chest pain Pulmonary: No SOB GI: No nausea, No vomiting Musculoskeletal: No bone or joint pain Psychiatric: Prior psych history Neurological: No focal symptoms ED Past Medical History - Past Medical History Past Medical History: HTN, DM, Asthma/COPD, Dyslipidemia, PUD/GERD, Other ( MUSCLE WEAKNESS ) Social History: Non Smoker, No Alcohol, No Drug Use Psychiatricy History: Schizophrenia, Bipolar, Dementia, Other (Psychosis) Family Medical History - Family Member Mother History Unknown: Yes Ethnicity: Unknown Living Status: Unknown Hx Family Cancer: No Hx Family Coronary Artery Disease: No Hx Family Congestive Heart Failure: No Hx Family Hypertension: No Hx Family Stroke: No Hx Family Diabetes: Yes Hx Family Seizures: No Hx Family Dementia: No Hx Family AIDS: No Hx Family HIV: No Hx Family COPD: No Hx Family Hepatitis: No Hx Family Psychiatric Problems: No Hx Family Tuberculosis: No ED Physical Exam - Physical Examination General/Constitutional: Awake, Alert Head: Atraumatic Eyes: PERRL, EOMI Skin: No skin lesions ENMT: Nasal exam nl Neck: No nuchal rigidity Respiratory: No Wheeze/Rhonchi/Rales Cardio Vascular: RRR, No murmur, gallop, rubs, NL S1 S2 GI: No tenderness/rebounding/guarding Extremities: normal strength in all extremities Neuro/Psych: No focal deficits Other Neuro/Psych comments:: Confused ED Labs/Radiology/EKG Results - Lab Results Results: Laboratory Last Values WBC 9.8 Th/cmm (4.8-10.8) 09/18/18 21:20 RBC 3.90 Mil/cmm (3.80-5.80) 09/18/18 21:20 Hgb 11.2 gm/dL (12-16) L 09/18/18 21:20 Hct 32.7 % (41.0-60) L 09/18/18 21:20 MCV 83.8 fl (80-99) 09/18/18 21:20 MCH 28.6 pg (27.0-31.0) 09/18/18 21:20 MCHC Differential 34.1 pg (28.0-36.0) 09/18/18 21:20 RDW 14.4 % (11.5-20.0) 09/18/18 21:20 Plt Count 225 Th/cmm (150-400) 09/18/18 21:20 MPV 7.8 fl 09/18/18 21:20 Neutrophils % 69.1 % (40.0-80.0) 09/18/18 21:20 Lymphocytes % 20.0 % (20.0-50.0) 09/18/18 21:20 Monocytes % 7.9 % (2.0-10.0) 09/18/18 21:20 Eosinophils % 3.0 % (0.0-5.0) 09/18/18 21:20 Basophils % 0.0 % (0.0-2.0) 09/18/18 21:20 PT 10.9 SECONDS (9.5-11.5) 09/18/18 21:20 INR 1.05 (0.5-1.4) 09/18/18 21:20 PTT (Actin FS) 27.4 SECONDS (26.0-38.0) 09/18/18 21:20 Sodium 141 mEq/L (136-145) 09/18/18 21:20 Potassium 4.3 mEq/L (3.5-5.1) 09/18/18 21:20 Chloride 108 mEq/L (98-107) H 09/18/18 21:20 Carbon Dioxide 28.3 mEq/L (21.0-31.0) 09/18/18 21:20 Anion Gap 9.0 (7.0-16.0) 09/18/18 21:20 BUN 22 mg/dL (7-25) 09/18/18 21:20 Creatinine 1.5 mg/dL (0.7-1.3) H 09/18/18 21:20 Est GFR ( Amer) TNP 09/18/18 21:20 Est GFR (Non-Af Amer) TNP 09/18/18 21:20 BUN/Creatinine Ratio 14.7 09/18/18 21:20 Glucose 85 mg/dL (70-105) 09/18/18 21:20 Calcium 8.8 mg/dL (8.6-10.3) 09/18/18 21:20 Total Bilirubin 0.3 mg/dL (0.3-1.0) 09/18/18 21:20 AST 30 U/L (13-39) 09/18/18 21:20 ALT 18 U/L (7-52) 09/18/18 21:20 Alkaline Phosphatase 78 U/L (34-104) 09/18/18 21:20 Troponin I 0.02 ng/mL (0.01-0.05) 09/18/18 21:20 B-Natriuretic Peptide 83.0 pg/mL (5.0-100.0) 09/18/18 21:20 Total Protein 6.6 gm/dL (6.0-8.3) 09/18/18 21:20 Albumin 3.6 gm/dL (4.2-5.5) L 09/18/18 21:20 Globulin 3.0 gm/dL 09/18/18 21:20 Albumin/Globulin Ratio 1.2 (1.0-1.8) 09/18/18 21:20 Triglycerides 56 mg/dL (<150) 09/18/18 21:20 Cholesterol 130 mg/dL (<200) 09/18/18 21:20 LDL Cholesterol Direct 83 mg/dL (75-193) 09/18/18 21:20 HDL Cholesterol 47 mg/dL (23-92) 09/18/18 21:20 TSH 1.45 uIU/ml (0.34-5.60) 09/18/18 21:20 Urine Source RANDOM 09/18/18 22:15 Urine Color YELLOW 09/18/18 22:15 Urine Clarity CLEAR (CLEAR) 09/18/18 22:15 Urine pH 6.0 (4.6 - 8.0) 09/18/18 22:15 Ur Specific [place] >= 1.030 (1.005-1.030) 09/18/18 22:15 Urine Protein >=300 mg/dL (NEGATIVE) 09/18/18 22:15 Urine Glucose (UA) NEGATIVE mg/dL (NEGATIVE) 09/18/18 22:15 Urine Ketones NEGATIVE mg/dL (NEGATIVE) 09/18/18 22:15 Urine Blood TRACE (NEGATIVE) 09/18/18 22:15 Urine Nitrate NEGATIVE (NEGATIVE) 09/18/18 22:15 Urine Bilirubin NEGATIVE (NEGATIVE) 09/18/18 22:15 Urine Urobilinogen 0.2 E.U./dL (0.2 - 1.0) 09/18/18 22:15 Ur Leukocyte Esterase NEGATIVE (NEGATIVE) 09/18/18 22:15 Urine RBC 2-5 /hpf (0-5) H 09/18/18 22:15 Urine WBC 0-2 /hpf (0-5) 09/18/18 22:15 Ur Epithelial Cells NONE SEEN /lpf (FEW) 09/18/18 22:15 Urine Bacteria 1+ /hpf (NONE SEEN) H 09/18/18 22:15 - Radiology Results Results: CXR: cardiomegaly, no focal consolidation - EKG Interpretations EKG Time:: 21:43 Rate & Rhythm: 57 bpm, sinus rhythm [place]: normal P axis Comments:: No ST, T wave changes ED Assessment - Assessment General Assessment: Hypertension DM II GERD Hyperlipidemia COPD Schizophrenia Bipolar disorder Dementia Psychosis Assessment/Comments:: CBC, CMP, PT/PTT, TSH, BNP, troponin, RPR, UA CXR, EKG Admit to erin for further evaluation and management ED Septic Shock - . Is Septic Shock (SBP<90, OR Lactate>4 mmol\L) present?: No ED Reassessment (Disposition) - Reassessment Reassessment Condition:: Unchanged - Patient Disposition Discharge/Transfer:: Erin w/in this hosp Admitting Psych Physician:: Said Dafne Velasquez
[2018-09-18 21:30] LABS: % MONOCYTES 7.9 % (2.0-10.0); % NEUTROPHILS 69.1 % (40.0-80.0); EOSINOPHILE ABSOLUTE 0.3 Th/cmm (0.1-0.4); HEMATOCRIT 32.7 % (41.0-60); HEMOGLOBIN 11.2 gm/dL (12-16); MEAN CELL VOLUME 83.8 fl (80-99); MEAN CORPUSCULAR HEMOGLOBIN 28.6 pg (27.0-31.0); MEAN CORPUSCULAR HGB CONC 34.1 pg (28.0-36.0); MONOCYTE ABSOLUTE 0.8 Th/cmm (0.3-1.0); NEUTROPHILE ABSOLUTE 6.7 Th/cmm (1.8-8.0); PLATELET COUNT 225 Th/cmm (150-400); RED CELL DISTRIBUTION WIDTH 14.4 % (11.5-20.0); WHITE BLOOD COUNT 9.8 Th/cmm (4.8-10.8)
[2018-09-18 21:42] LABS: ALB/GLOB RATIO 1.2 (1.0-1.8); ALBUMIN 3.6 gm/dL (4.2-5.5); ALKALINE PHOSPHATASE 78 U/L (34-104); BILIRUBIN,TOTAL 0.3 mg/dL (0.3-1.0); BUN - UREA NITROGEN 22 mg/dL (7-25); CALCIUM SERUM 8.8 mg/dL (8.6-10.3); CARBON DIOXIDE 28.3 mEq/L (21.0-31.0); CHLORIDE 108 mEq/L (98-107); CREATININE - SERUM 1.5 mg/dL (0.7-1.3); GLUCOSE 85 mg/dL (70-105); INR 1.05 (0.5-1.4); POTASSIUM SERUM 4.3 mEq/L (3.5-5.1); SGOT 30 U/L (13-39); SGPT/ALT 18 U/L (7-52); SODIUM SERUM 141 mEq/L (136-145); TOTAL PROTEIN,SERUM 6.6 gm/dL (6.0-8.3)
[2018-09-18 22:39] LABS: URINE SOURCE RANDOM
[2018-09-18 22:45] LABS: URINE BILIRUBIN NEGATIVE (NEGATIVE); URINE BLOOD TRACE (NEGATIVE); URINE GLUCOSE (UA) NEGATIVE (NEGATIVE); URINE KETONE NEGATIVE (NEGATIVE); URINE LEUKOCYTE ESTERASE NEGATIVE (NEGATIVE); URINE MICROSCOPIC INDICATED? YES; URINE NITRATE NEGATIVE (NEGATIVE); URINE PROTEIN >=300 mg/dL (NEGATIVE); URINE UROBILINOGEN 0.2 E.U./dL (0.2 - 1.0)
[2018-09-18 22:48] LABS: URINE CLARITY CLEAR (CLEAR); URINE COLOR YELLOW
[2018-09-18 22:55] LABS: URINE BACTERIA 1+ /hpf (NONE SEEN); URINE EPITHELIAL CELLS NONE SEEN /lpf (FEW); URINE WBC 0-2 /hpf (0-5)
[2018-09-19 00:46] VITALS: BP 156/82
[2018-09-19] MEDS ORDERED: Magnesium Hydroxide (MOM) 30 mL UDC PO PRN ×2 (00:49→07:37)
[2018-09-19 07:18] LABS: CHOLESTEROL 130 mg/dL (<200); HDL -HIGH DENSITY LIPOPROTEIN 47 mg/dL (23-92); TRIGLYCERIDES 56 mg/dL (<150)
[2018-09-19] MEDS ORDERED: GLUCAGON HCl 1 MG KIT IM PRN (07:37)
--- NOTE | 2018-09-19 08:51 | Diagnostic Imaging Report ---
Portable chest x-ray HISTORY: Shortness of breath The heart is enlarged. No focal pulmonary processes. No hilar or mediastinal abnormalities. IMPRESSION: 1. No acute processes 2. Cardiomegaly
[2018-09-19] MEDS ORDERED: Non-Formulary Item 1 EA (Diclofenac Sodium [Voltaren] 100 GM) TP SCH (09:00)
[2018-09-19] MEDS: Insulin Glargine 100 units/ml 10ml Vial SUBQ SCH ×2 (09:20→17:05)
[2018-09-19] MEDS: INSULIN LISPRO SLIDING SCALE 100 UNITS/ML UNIT SUBQ SCH ×3 (12:00→20:25)
--- NOTE | 2018-09-19 15:28 | History and Physical ---
History of Present Illness - HPI Chief Complaint: agitation HPI: This is a 83-year old male who is a intermediate resident admitted to the geropsych unit due to agitation. Vital Signs: Last Vital Signs Temp 98.8 F 09/19/18 14:20 Pulse 67 09/19/18 14:20 Resp 18 09/19/18 14:20 BP 147/78 09/19/18 14:20 Pulse Ox 98 09/19/18 14:20 Past Medical History Other History: HTN DM Asthma/COPD Dyslipidemia PUD/GERD MUSCLE WEAKNESS Family Medical History - Family Member Mother History Unknown: Yes Ethnicity: Unknown Living Status: Unknown Hx Family Cancer: No Hx Family Coronary Artery Disease: No Hx Family Congestive Heart Failure: No Hx Family Hypertension: No Hx Family Stroke: No Hx Family Diabetes: Yes Hx Family Seizures: No Hx Family Dementia: No Hx Family AIDS: No Hx Family HIV: No Hx Family COPD: No Hx Family Hepatitis: No Hx Family Psychiatric Problems: No Hx Family Tuberculosis: No Social History Smoke: No Alcohol: None Drugs: None Lives: Residential - Medications Home Medications: Home Medication Medication Instructions Recorded Type Acetaminophen [Tylenol] 650 mg PO Q6H PRN tab 07/31/18 Rx Al Hyd/Mg Hyd/Simethicone [Maalox] 30 ml PO Q4HR PRN udc 07/31/18 Rx Cholecalciferol (Vit D3) [Vitamin 1,000 iu PO DAILY tab 07/31/18 Rx D3] Donepezil Hcl [Aricept] 10 mg PO HS tab 07/31/18 Rx GLUCAGON HCl [Glucagen] 1 mg IM PRN PRN kit 07/31/18 Rx Insulin Glargine [Lantus Insulin] 25 units SUBQ BID vial 07/31/18 Rx Insulin Lispro Sliding Scale See Protocol SUBQ ACHS unit 07/31/18 Rx [humaLOG INSULIN SLIDING SCALE] Linagliptin [Tradjenta] 5 mg PO DAILY tab 07/31/18 Rx Magnesium Hydroxide [Milk of 30 ml PO HS PRN udc 07/31/18 Rx Magnesia] Memantine [Namenda] 10 mg PO BID tab 07/31/18 Rx aripIPRAZOLE [Abilify*] 5 mg PO DAILY tab 07/31/18 Rx Diclofenac Sodium [Voltaren] 100 gm TP Q12HR 08/13/19 History - Allergies Allergies/Adverse Reactions: Allergies Allergy/AdvReac Type Severity Reaction Status Date / Time rivaroxaban [From Xarelto] Allergy Verified 08/20/16 19:27 Review of Systems - Review of Systems Constitutional: Report: No Significant Eyes: Report: No Significant ENT: Report: No Significant Respiratory: Report: No Significant Cardiovascular: Report: No Significant Gastrointestinal: Report: No Significant Genitourinary: Report: No Significant Musculoskeletal: Report: No Significant Skin: Report: No Significant Neurological: Report: No Significant Physical Exam - Physical Exam HEENT: Report: Ears Nose Throat within normal limits Neck: Report: Within normal limits Cardiovascular Systems: Report: +s1/s2 noted, Regular, Rate and Rhythm Respiratory: Report: Breath Sounds are within normal limits Skin: Report: Warm, Dry - Lab Results All Lab Results last 24 hours: Laboratory Results - last 24 hr 09/18/18 09/18/18 09/18/18 21:20 21:20 21:20 WBC 9.8 RBC 3.90 Hgb 11.2 L Hct 32.7 L MCV 83.8 MCH 28.6 MCHC Differential 34.1 RDW 14.4 Plt Count 225 MPV 7.8 Neutrophils % 69.1 Lymphocytes % 20.0 Monocytes % 7.9 Eosinophils % 3.0 Basophils % 0.0 PT INR PTT (Actin FS) Sodium 141 Potassium 4.3 Chloride 108 H Carbon Dioxide 28.3 Anion Gap 9.0 BUN 22 Creatinine 1.5 H Est GFR ( Amer) TNP Est GFR (Non-Af Amer) TNP BUN/Creatinine Ratio 14.7 Glucose 85 Calcium 8.8 Total Bilirubin 0.3 AST 30 ALT 18 Alkaline Phosphatase 78 Troponin I B-Natriuretic Peptide 83.0 Total Protein 6.6 Albumin 3.6 L Globulin 3.0 Albumin/Globulin Ratio 1.2 Triglycerides Cholesterol LDL Cholesterol Direct HDL Cholesterol TSH Urine Source Urine Color Urine Clarity Urine pH Ur Specific [place] Urine Protein Urine Glucose (UA) Urine Ketones Urine Blood Urine Nitrate Urine Bilirubin Urine Urobilinogen Ur Leukocyte Esterase Urine RBC Urine WBC Ur Epithelial Cells Urine Bacteria 09/18/18 09/18/18 09/18/18 21:20 21:20 21:20 WBC RBC Hgb Hct MCV MCH MCHC Differential RDW Plt Count MPV Neutrophils % Lymphocytes % Monocytes % Eosinophils % Basophils % PT 10.9 INR 1.05 PTT (Actin FS) 27.4 Sodium Potassium Chloride Carbon Dioxide Anion Gap BUN Creatinine Est GFR ( Amer) Est GFR (Non-Af Amer) BUN/Creatinine Ratio Glucose Calcium Total Bilirubin AST ALT Alkaline Phosphatase Troponin I 0.02 B-Natriuretic Peptide Total Protein Albumin Globulin Albumin/Globulin Ratio Triglycerides Cholesterol LDL Cholesterol Direct HDL Cholesterol TSH 1.45 Urine Source Urine Color Urine Clarity Urine pH Ur Specific [place] Urine Protein Urine Glucose (UA) Urine Ketones Urine Blood Urine Nitrate Urine Bilirubin Urine Urobilinogen Ur Leukocyte Esterase Urine RBC Urine WBC Ur Epithelial Cells Urine Bacteria 09/18/18 09/18/18 21:20 22:15 WBC RBC Hgb Hct MCV MCH MCHC Differential RDW Plt Count MPV Neutrophils % Lymphocytes % Monocytes % Eosinophils % Basophils % PT INR PTT (Actin FS) Sodium Potassium Chloride Carbon Dioxide Anion Gap BUN Creatinine Est GFR ( Amer) Est GFR (Non-Af Amer) BUN/Creatinine Ratio Glucose Calcium Total Bilirubin AST ALT Alkaline Phosphatase Troponin I B-Natriuretic Peptide Total Protein Albumin Globulin Albumin/Globulin Ratio Triglycerides 56 Cholesterol 130 LDL Cholesterol Direct 83 HDL Cholesterol 47 TSH Urine Source RANDOM Urine Color YELLOW Urine Clarity CLEAR Urine pH 6.0 Ur Specific [place] >= 1.030 Urine Protein >=300 Urine Glucose (UA) NEGATIVE Urine Ketones NEGATIVE Urine Blood TRACE Urine Nitrate NEGATIVE Urine Bilirubin NEGATIVE Urine Urobilinogen 0.2 Ur Leukocyte Esterase NEGATIVE Urine RBC 2-5 H Urine WBC 0-2 Ur Epithelial Cells NONE SEEN Urine Bacteria 1+ H - Assessment Assessment: agitation htn dm2 asthma copd dyslipidemia gerd - Plan Plan: fall precautions continue home medications continue current plan of care
[2018-09-20 06:08] LABS: A1C 6.7 % (4.8-5.6)
[2018-09-20] MEDS: INSULIN LISPRO SLIDING SCALE 100 UNITS/ML UNIT SUBQ SCH ×4 (07:56→20:26)
[2018-09-20] MEDS: Insulin Glargine 100 units/ml 10ml Vial SUBQ SCH (11:46)
--- NOTE | 2018-09-20 14:05 | Internal Medicine Prog Note ---
Internal Medicine Subjective - Subjective Service Date: 09/20/18 Patient seen and examined:: with staff Patient is:: awake Per staff patient has:: tolerating meds Internal Medicine Objective - Results Result Diagrams: 09/18/18 21:20 09/18/18 21:20 Recent Labs: Laboratory Last Values WBC 9.8 Th/cmm (4.8-10.8) 09/18/18 21:20 RBC 3.90 Mil/cmm (3.80-5.80) 09/18/18 21:20 Hgb 11.2 gm/dL (12-16) L 09/18/18 21:20 Hct 32.7 % (41.0-60) L 09/18/18 21:20 MCV 83.8 fl (80-99) 09/18/18 21:20 MCH 28.6 pg (27.0-31.0) 09/18/18 21:20 MCHC Differential 34.1 pg (28.0-36.0) 09/18/18 21:20 RDW 14.4 % (11.5-20.0) 09/18/18 21:20 Plt Count 225 Th/cmm (150-400) 09/18/18 21:20 MPV 7.8 fl 09/18/18 21:20 Neutrophils % 69.1 % (40.0-80.0) 09/18/18 21:20 Lymphocytes % 20.0 % (20.0-50.0) 09/18/18 21:20 Monocytes % 7.9 % (2.0-10.0) 09/18/18 21:20 Eosinophils % 3.0 % (0.0-5.0) 09/18/18 21:20 Basophils % 0.0 % (0.0-2.0) 09/18/18 21:20 PT 10.9 SECONDS (9.5-11.5) 09/18/18 21:20 INR 1.05 (0.5-1.4) 09/18/18 21:20 PTT (Actin FS) 27.4 SECONDS (26.0-38.0) 09/18/18 21:20 Sodium 141 mEq/L (136-145) 09/18/18 21:20 Potassium 4.3 mEq/L (3.5-5.1) 09/18/18 21:20 Chloride 108 mEq/L (98-107) H 09/18/18 21:20 Carbon Dioxide 28.3 mEq/L (21.0-31.0) 09/18/18 21:20 Anion Gap 9.0 (7.0-16.0) 09/18/18 21:20 BUN 22 mg/dL (7-25) 09/18/18 21:20 Creatinine 1.5 mg/dL (0.7-1.3) H 09/18/18 21:20 Est GFR ( Amer) TNP 09/18/18 21:20 Est GFR (Non-Af Amer) TNP 09/18/18 21:20 BUN/Creatinine Ratio 14.7 09/18/18 21:20 Glucose 85 mg/dL (70-105) 09/18/18 21:20 POC Glucose 90 MG/DL (70 - 105) 09/20/18 11:22 Calcium 8.8 mg/dL (8.6-10.3) 09/18/18 21:20 Total Bilirubin 0.3 mg/dL (0.3-1.0) 09/18/18 21:20 AST 30 U/L (13-39) 09/18/18 21:20 ALT 18 U/L (7-52) 09/18/18 21:20 Alkaline Phosphatase 78 U/L (34-104) 09/18/18 21:20 Troponin I 0.02 ng/mL (0.01-0.05) 09/18/18 21:20 B-Natriuretic Peptide 83.0 pg/mL (5.0-100.0) 09/18/18 21:20 Total Protein 6.6 gm/dL (6.0-8.3) 09/18/18 21:20 Albumin 3.6 gm/dL (4.2-5.5) L 09/18/18 21:20 Globulin 3.0 gm/dL 09/18/18 21:20 Albumin/Globulin Ratio 1.2 (1.0-1.8) 09/18/18 21:20 Triglycerides 56 mg/dL (<150) 09/18/18 21:20 Cholesterol 130 mg/dL (<200) 09/18/18 21:20 LDL Cholesterol Direct 83 mg/dL (75-193) 09/18/18 21:20 HDL Cholesterol 47 mg/dL (23-92) 09/18/18 21:20 TSH 1.45 uIU/ml (0.34-5.60) 09/18/18 21:20 Urine Source RANDOM 09/18/18 22:15 Urine Color YELLOW 09/18/18 22:15 Urine Clarity CLEAR (CLEAR) 09/18/18 22:15 Urine pH 6.0 (4.6 - 8.0) 09/18/18 22:15 Ur Specific [place] >= 1.030 (1.005-1.030) 09/18/18 22:15 Urine Protein >=300 mg/dL (NEGATIVE) 09/18/18 22:15 Urine Glucose (UA) NEGATIVE mg/dL (NEGATIVE) 09/18/18 22:15 Urine Ketones NEGATIVE mg/dL (NEGATIVE) 09/18/18 22:15 Urine Blood TRACE (NEGATIVE) 09/18/18 22:15 Urine Nitrate NEGATIVE (NEGATIVE) 09/18/18 22:15 Urine Bilirubin NEGATIVE (NEGATIVE) 09/18/18 22:15 Urine Urobilinogen 0.2 E.U./dL (0.2 - 1.0) 09/18/18 22:15 Ur Leukocyte Esterase NEGATIVE (NEGATIVE) 09/18/18 22:15 Urine RBC 2-5 /hpf (0-5) H 09/18/18 22:15 Urine WBC 0-2 /hpf (0-5) 09/18/18 22:15 Ur Epithelial Cells NONE SEEN /lpf (FEW) 09/18/18 22:15 Urine Bacteria 1+ /hpf (NONE SEEN) H 09/18/18 22:15 - Physical Exam Vitals and I&O: Vital Signs Temp 97.9 F 09/20/18 06:52 Pulse 82 09/20/18 06:52 Resp 18 09/20/18 08:00 BP 122/59 09/20/18 06:52 Pulse Ox 98 09/20/18 06:52 Intake & Output 09/19/18 09/20/18 09/20/18 18:59 06:59 18:59 Intake Total 120 Balance 120 Intake: Oral 120 Other: # Voids 3 1 # Bowel Movements 1 0 Active Medications: Current Medications Acetaminophen (Tylenol) 650 mg PO Q4HR PRN PRN Reason: Mild Pain / Temp above 100 Stop: 11/18/18 00:48 Aripiprazole (Abilify) 5 mg PO DAILY [facility]; Protocol Stop: 11/18/18 08:59 Last Admin: 09/20/18 08:56 Dose: 5 mg Cholecalciferol (Vitamin D3) 1,000 iu PO DAILY [facility] Stop: 11/18/18 08:59 Last Admin: 09/20/18 08:56 Dose: 1,000 iu Donepezil HCl (Aricept) 10 mg PO HS [facility] Stop: 11/18/18 20:59 Last Admin: 09/19/18 20:24 Dose: 10 mg Glucagon (Glucagen) 1 mg IM PRN PRN PRN Reason: Blood Glucose less than 70 Stop: 11/18/18 07:36 Insulin Glargine (Lantus Insulin) 25 units SUBQ BID [facility] Stop: 11/18/18 08:59 Last Admin: 09/20/18 11:46 Dose: Not Given Insulin Human Lispro (Humalog Insulin Sliding Scale) 0 units SUBQ ACHS [facility]; Protocol Stop: 11/18/18 11:29 Last Admin: 09/20/18 11:46 Dose: Not Given Lorazepam (Ativan) 0.5 mg PO Q4HR PRN; Protocol PRN Reason: Anxiety Stop: 10/19/18 00:48 Magnesium Hydroxide (Milk Of Magnesia) 30 ml PO HS PRN PRN Reason: Constipation Stop: 11/18/18 07:36 Memantine (Namenda) 10 mg PO BID [facility] Stop: 11/18/18 08:59 Last Admin: 09/20/18 08:55 Dose: 10 mg Zolpidem Tartrate (Ambien) 5 mg PO HS PRN PRN Reason: Insomnia Stop: 11/18/18 00:48 Last Admin: 09/19/18 20:24 Dose: 5 mg General: alert HEENT: NC/AT, PERRLA Neck: Supple Lungs: CTAB Cardiovascular: RRR, Normal S1, Normal S2 Abdomen: soft, non-tender, non-distended, positive bowel sound Extremities: excoriation Neurological: alert Internal Medicine Assmt/Plan - Assessment Assessment: agitation htn dm2 asthma copd dyslipidemia gerd - Plan Plan: fall precautions dc lantus continue current plan of care
--- NOTE | 2018-09-20 15:24 | Psychiatric Evaluation ---
DATE OF SERVICE: PSYCHIATRIC INITIAL EVALUATION AND MENTAL STATUS EXAMINATION PATIENT'S AGE: 83. SEX: Male. CHIEF COMPLAINT: Sexual inappropriate behavior. HISTORY OF PRESENT ILLNESS: The patient is an 83-year-old male who was transferred from [facility] because of sexual inappropriate behavior. The patient also has been agitated and has been not able to follow directions. Also, has been in angry and in irritable mood. He also has been suspicious and has been paranoid according to the staff in [facility] who called me and let know about the patient's behavior. Actually, the patient in the hospital is [place] speaking and is not able to follow any of staff directions. He also has not been able to follow staff directions and has episodes of agitation and irritability. No sexual inappropriate behavior noted yet. PAST PSYCHIATRIC HISTORY: The patient has history of dementia. PAST MEDICAL HISTORY: The patient has a history of hypertension, diabetes mellitus, COPD and gastroesophageal reflux disease. SOCIAL HISTORY: The patient lives in [facility]. No known alcohol or street drug use. ALLERGIES: No known allergies. CURRENT MEDICATIONS: Abilify 5 mg every day. MENTAL STATUS EXAMINATION: The patient appears his stated age. Restless. Anxious. Irritable mood. Argentine speaking and I got help from staff with translation. The patient did not answer question regarding hallucinations or delusions, but seems to be preoccupied and actively responding to stimuli. The patient denied any thoughts of suicide or homicide. The patient is alert, but disoriented to place, person and situation. Impaired immediate and recent memory, but intact remote memory and he remembered his date. Poor insight and poor judgment. ASSESSMENT: PRIMARY DIAGNOSIS: Unspecified psychosis. SECONDARY DIAGNOSIS: Dementia, [id number], with psychotic features and behavioral disturbances. TREATMENT PLAN: We will monitor the patient's behavior closely. We will also continue Abilify at current dose. Also, we will work on behavioral modification. ESTIMATED LENGTH OF STAY: 5-7 days. PATIENT'S STRENGTHS AND WEAKNESSES: The patient's strength is not clear at this time. Weakness is ineffective, his poor impulse control and agitation. AFTER DISCHARGE PLANS: Outpatient treatment and followup will continue as an outpatient. CRITERIA FOR DISCHARGE: The patient will not be as agitated and better impulse control. [facility]# [id number]
--- NOTE | 2018-09-21 03:13 | Progress Notes ---
DATE: 09/20/2018 PSYCHIATRIC PROGRESS NOTE SUBJECTIVE: Chart was reviewed and the patient interviewed. Also discussed the patient's condition with the staff and reviewed records and labs. The patient is still in irritable mood and still easily agitated. The patient also is still suspicious and is still paranoid. He also is easily agitated and wants to be left alone. Otherwise, the patient is compliant with taking his medications, with no side effects. ASSESSMENT: The patient still needs close monitoring and is still psychotic. TREATMENT PLAN: Continue to monitor behavior and condition closely and continue adjusting psychotropic medications and followup. [facility]# [id number]
[2018-09-21] MEDS: INSULIN LISPRO SLIDING SCALE 100 UNITS/ML UNIT SUBQ SCH ×4 (06:49→21:09)
--- NOTE | 2018-09-21 07:32 | Progress Notes ---
DATE: 09/21/2018 PSYCHIATRIC PROGRESS NOTE SUBJECTIVE: Chart was reviewed and the patient interviewed. Also discussed the patient's condition with the staff and reviewed records and labs. The patient is complaining of insomnia and he was not able to sleep much last night according to staff. The patient also is still confused and restless, but not as agitated. The patient also is forgetful and he has difficulty remembering. He also still has mood swings and episodes of agitation, but less than before. Otherwise, the patient is compliant with taking his medications with no side effects of medications. ASSESSMENT: The patient is still confused and forgetful. TREATMENT PLAN: We will continue to monitor his behavior and his condition closely. Also, we will discontinue Ambien and we will give the patient trazodone 50 mg at bedtime, hopefully to help the patient sleep better. Also, continue adjusting psychotropic medications and will continue to follow up. [facility]# [id number]
[2018-09-22] MEDS: INSULIN LISPRO SLIDING SCALE 100 UNITS/ML UNIT SUBQ SCH ×4 (06:40→21:15)
--- NOTE | 2018-09-22 11:14 | Internal Medicine Prog Note ---
Internal Medicine Subjective - Subjective Patient seen and examined:: chart reviewed Patient is:: awake, other (pt is confused restless ) Per staff patient has:: no adverse event, tolerating meds Internal Medicine Objective - Results Result Diagrams: 09/18/18 21:20 09/18/18 21:20 Recent Labs: Laboratory Last Values WBC 9.8 Th/cmm (4.8-10.8) 09/18/18 21:20 RBC 3.90 Mil/cmm (3.80-5.80) 09/18/18 21:20 Hgb 11.2 gm/dL (12-16) L 09/18/18 21:20 Hct 32.7 % (41.0-60) L 09/18/18 21:20 MCV 83.8 fl (80-99) 09/18/18 21:20 MCH 28.6 pg (27.0-31.0) 09/18/18 21:20 MCHC Differential 34.1 pg (28.0-36.0) 09/18/18 21:20 RDW 14.4 % (11.5-20.0) 09/18/18 21:20 Plt Count 225 Th/cmm (150-400) 09/18/18 21:20 MPV 7.8 fl 09/18/18 21:20 Neutrophils % 69.1 % (40.0-80.0) 09/18/18 21:20 Lymphocytes % 20.0 % (20.0-50.0) 09/18/18 21:20 Monocytes % 7.9 % (2.0-10.0) 09/18/18 21:20 Eosinophils % 3.0 % (0.0-5.0) 09/18/18 21:20 Basophils % 0.0 % (0.0-2.0) 09/18/18 21:20 PT 10.9 SECONDS (9.5-11.5) 09/18/18 21:20 INR 1.05 (0.5-1.4) 09/18/18 21:20 PTT (Actin FS) 27.4 SECONDS (26.0-38.0) 09/18/18 21:20 Sodium 141 mEq/L (136-145) 09/18/18 21:20 Potassium 4.3 mEq/L (3.5-5.1) 09/18/18 21:20 Chloride 108 mEq/L (98-107) H 09/18/18 21:20 Carbon Dioxide 28.3 mEq/L (21.0-31.0) 09/18/18 21:20 Anion Gap 9.0 (7.0-16.0) 09/18/18 21:20 BUN 22 mg/dL (7-25) 09/18/18 21:20 Creatinine 1.5 mg/dL (0.7-1.3) H 09/18/18 21:20 Est GFR ( Amer) TNP 09/18/18 21:20 Est GFR (Non-Af Amer) TNP 09/18/18 21:20 BUN/Creatinine Ratio 14.7 09/18/18 21:20 Glucose 85 mg/dL (70-105) 09/18/18 21:20 POC Glucose 133 MG/DL (70 - 105) H 09/22/18 05:17 Calcium 8.8 mg/dL (8.6-10.3) 09/18/18 21:20 Total Bilirubin 0.3 mg/dL (0.3-1.0) 09/18/18 21:20 AST 30 U/L (13-39) 09/18/18 21:20 ALT 18 U/L (7-52) 09/18/18 21:20 Alkaline Phosphatase 78 U/L (34-104) 09/18/18 21:20 Troponin I 0.02 ng/mL (0.01-0.05) 09/18/18 21:20 B-Natriuretic Peptide 83.0 pg/mL (5.0-100.0) 09/18/18 21:20 Total Protein 6.6 gm/dL (6.0-8.3) 09/18/18 21:20 Albumin 3.6 gm/dL (4.2-5.5) L 09/18/18 21:20 Globulin 3.0 gm/dL 09/18/18 21:20 Albumin/Globulin Ratio 1.2 (1.0-1.8) 09/18/18 21:20 Triglycerides 56 mg/dL (<150) 09/18/18 21:20 Cholesterol 130 mg/dL (<200) 09/18/18 21:20 LDL Cholesterol Direct 83 mg/dL (75-193) 09/18/18 21:20 HDL Cholesterol 47 mg/dL (23-92) 09/18/18 21:20 TSH 1.45 uIU/ml (0.34-5.60) 09/18/18 21:20 Urine Source RANDOM 09/18/18 22:15 Urine Color YELLOW 09/18/18 22:15 Urine Clarity CLEAR (CLEAR) 09/18/18 22:15 Urine pH 6.0 (4.6 - 8.0) 09/18/18 22:15 Ur Specific [place] >= 1.030 (1.005-1.030) 09/18/18 22:15 Urine Protein >=300 mg/dL (NEGATIVE) 09/18/18 22:15 Urine Glucose (UA) NEGATIVE mg/dL (NEGATIVE) 09/18/18 22:15 Urine Ketones NEGATIVE mg/dL (NEGATIVE) 09/18/18 22:15 Urine Blood TRACE (NEGATIVE) 09/18/18 22:15 Urine Nitrate NEGATIVE (NEGATIVE) 09/18/18 22:15 Urine Bilirubin NEGATIVE (NEGATIVE) 09/18/18 22:15 Urine Urobilinogen 0.2 E.U./dL (0.2 - 1.0) 09/18/18 22:15 Ur Leukocyte Esterase NEGATIVE (NEGATIVE) 09/18/18 22:15 Urine RBC 2-5 /hpf (0-5) H 09/18/18 22:15 Urine WBC 0-2 /hpf (0-5) 09/18/18 22:15 Ur Epithelial Cells NONE SEEN /lpf (FEW) 09/18/18 22:15 Urine Bacteria 1+ /hpf (NONE SEEN) H 09/18/18 22:15 RPR NONREACTIVE (NONREACTIVE) 09/18/18 21:20 - Physical Exam Vitals and I&O: Vital Signs Temp 97.6 F 09/22/18 05:51 Pulse 71 09/22/18 05:51 Resp 20 09/22/18 05:51 BP 158/67 09/22/18 05:51 Pulse Ox 95 09/22/18 05:51 Intake & Output 09/21/18 09/22/18 09/22/18 18:59 06:59 18:59 Intake Total 880 900 Balance 880 900 Intake: Oral 640 900 Other 240 Other: # Voids 4 2 # Bowel Movements 1 1 Active Medications: Current Medications Acetaminophen (Tylenol) 650 mg PO Q4HR PRN PRN Reason: Mild Pain / Temp above 100 Stop: 11/18/18 00:48 Last Admin: 09/20/18 14:13 Dose: 650 mg Aripiprazole (Abilify) 5 mg PO DAILY [facility]; Protocol Stop: 11/18/18 08:59 Last Admin: 09/22/18 08:47 Dose: 5 mg Cholecalciferol (Vitamin D3) 1,000 iu PO DAILY [facility] Stop: 11/18/18 08:59 Last Admin: 09/22/18 08:47 Dose: 1,000 iu Donepezil HCl (Aricept) 10 mg PO HS [facility] Stop: 11/18/18 20:59 Last Admin: 09/21/18 21:08 Dose: 10 mg Glucagon (Glucagen) 1 mg IM PRN PRN PRN Reason: Blood Glucose less than 70 Stop: 11/18/18 07:36 Insulin Human Lispro (Humalog Insulin Sliding Scale) 0 units SUBQ ACHS [facility]; Protocol Stop: 11/18/18 11:29 Last Admin: 09/22/18 06:40 Dose: Not Given Lorazepam (Ativan) 0.5 mg PO Q4HR PRN; Protocol PRN Reason: Anxiety Stop: 10/19/18 00:48 Last Admin: 09/22/18 08:47 Dose: 0.5 mg Magnesium Hydroxide (Milk Of Magnesia) 30 ml PO HS PRN PRN Reason: Constipation Stop: 11/18/18 07:36 Memantine (Namenda) 10 mg PO BID [facility] Stop: 11/18/18 08:59 Last Admin: 09/22/18 08:47 Dose: 10 mg Mupirocin (Bactroban Oint) 1 appl NS BID [facility] Stop: 09/25/18 17:01 Last Admin: 09/21/18 17:18 Dose: 1 appl Trazodone HCl (Desyrel) 50 mg PO HS [facility]; Protocol Stop: 11/20/18 20:59 Last Admin: 09/21/18 21:08 Dose: 50 mg General: alert HEENT: NC/AT, PERRLA Neck: Supple Lungs: CTAB Cardiovascular: RRR, Normal S1, Normal S2 Abdomen: soft, non-tender, non-distended, positive bowel sound Extremities: excoriation Neurological: alert, other (confused ) Internal Medicine Assmt/Plan - Assessment Assessment: agitation htn dm2 asthma copd dyslipidemia gerd - Plan Plan: Continuation of care. Monitor Labs. Continue present meds as directed. Monitor Diet/Nutritional support. Psych management per Psych. PT/OT prn. Safety precaution. Supportive care. Fall precaution, frequent nursing rounds, and as needed restraints to prevent fall. Continue collaborating with consulting specialists, case management and nursing team. Will Monitor patient and continue present care management. Nutritional Asmnt/Malnutr-PDOC - Dietary Evaluation Malnutrition Findings (Please click <Entered> for more info): Nutritional Asmnt/Malnutrition Start: 09/21/18 15: 14 Text: Status: Complete Freq: Protocol: Document 09/21/18 15:14 MARCELLE (Rec: 09/21/18 15:17 MARCELLE [email or web address]) Nutritional Asmnt/Malnutrition Patient General Information Nutritional Screening Moderate Risk Diagnosis Psychosis Pertinent Medical Hx/Surgical Hx HTN, DM, Asthma/COPD, Dyslipidemia, PUD/GERD, Muscle weakness Subjective Information Pt is a 83-year-old male from [place] admitted on 09/18 c/o agitation. Per Meal/ Nutrition Activity Record, Pt PO intake 67% meals on 09/20 to meet 85% kcal and 100+% Pro needs. HT: 52 WT: 145 LB (65.91 kg) ADJ BW: 59.12 kg BMI: 26.52 (Overweight) GI: WNL, Soft, Flat, Non- Tender BM: 09/21 x1 I/O: 1080/Not Noted Skin: WNL, Intact Ronald: 19 Diet Order: CCHO 60 GM, Cardiac, Renal, Chopped Estimated Energy Needs: (Renal /CKD 1-3, CBW) 6965-5953 kcals (28-35 kcals/ kg) 49-52g Pro (0.75-0.8/kg) 7985-6132 ml (35-40 ml/kg)/Per MD Pt is eating 67% of meals Per Meal/Nutrition Activity Record . Dietary is currently providing an estimated 2333kcals and 84 gm Pro, per Pt PO intake this is providing an estimated 1563 kcals and 56gm Pro to meet 85% kcal and 100+% Pro needs- adequate. Current Diet Order/ Nutrition Support CCHO 60 GM, Cardiac, Renal, Chopped Pertinent Medications Vitamin D3, Glucagen (PRN), INS-SS, MOM (PRN) Pertinent Labs 09/18: Hgb/Hct 11.2/32.7 Nutritional Hx/Data Height 1.57 m Height (Calculated Centimeters) 157.5 Current Weight (lbs) 65.771 kg Weight (Calculated Kilograms) 65.8 Weight (Calculated Grams) 09089.9 [place] Body Weight 54.6 kg % [place] Body Weight 121 Body Mass Index (BMI) 26.5 Weight Status Overweight GI Symptoms GI Symptoms None Last BM 09/21 x1 Skin Integrity/Comment: WNL, Intact Ronald: 19 Current %PO Fair (50-74%) Estimated Nutritional Goals BEE in Kcals: Using Current wt Calories/Kcals/Kg 28-35 Kcals Calculated 7918-7676 Protein: Using Current wt Protein g/k.75-0.8 Protein Calculated 49-52 Fluid: ml 3909-2799 ml (35-40 ml/kg)/Per MD Nutritional Problem 1. Problem Problem N/A Etiology N/A Signs/Symptoms: N/A Malnutrition Related to Morbid Obesity Malnutrition related to morbid obesity No Intervention/Recommendation Comments 1.Continue with CCHO 60 GM, Cardiac, Renal, chopped diet as ordered. Expected Outcomes/Goals Expected Outcomes/Goals 1.PO intake to continue to meet 75% of nutritional needs. 2.Monitor PO intake, wt, nutrition related labs, and skin integrity. 3.F/U as low risk in 7 days,
--- NOTE | 2018-09-22 16:58 | Progress Notes ---
DATE: 09/22/[address] Velasquez. SUBJECTIVE: Case was discussed with staff of the patient, reviewed records. This is an 83-year-old male who was admitted on 09/18/2018, because of sexually inappropriate behavior came from [facility] because of sexual behavior, agitated, not able to follow direction, angry, irritable, paranoid, suspicious, Urdu speaking, unable to follow staff direction, unable to participate in a meaningful conversation. Continues to have poor insight in general and that is the reason for his admission here. He is unable to take care of himself, confused, restless, fine, irritable. He was initiated trazodone 50 mg at bedtime, taken off Ambien. This does not help him with lack of sleep. No side effects with the medication, no sedation, no nausea. He is on Namenda 10 mg twice a day and Aricept 10 mg at bedtime. I will continue to work with the patient in group therapy, milieu therapy, and adjust medication as needed. JOB# [id number]
[2018-09-23] MEDS: INSULIN LISPRO SLIDING SCALE 100 UNITS/ML UNIT SUBQ SCH ×4 (06:36→21:43)
--- NOTE | 2018-09-23 09:54 | Internal Medicine Prog Note ---
Internal Medicine Subjective - Subjective Patient is:: awake, in bed, other (pt is confused restless ) Per staff patient has:: no adverse event, tolerating meds Internal Medicine Objective - Results Result Diagrams: 09/18/18 21:20 09/18/18 21:20 Recent Labs: Laboratory Last Values WBC 9.8 Th/cmm (4.8-10.8) 09/18/18 21:20 RBC 3.90 Mil/cmm (3.80-5.80) 09/18/18 21:20 Hgb 11.2 gm/dL (12-16) L 09/18/18 21:20 Hct 32.7 % (41.0-60) L 09/18/18 21:20 MCV 83.8 fl (80-99) 09/18/18 21:20 MCH 28.6 pg (27.0-31.0) 09/18/18 21:20 MCHC Differential 34.1 pg (28.0-36.0) 09/18/18 21:20 RDW 14.4 % (11.5-20.0) 09/18/18 21:20 Plt Count 225 Th/cmm (150-400) 09/18/18 21:20 MPV 7.8 fl 09/18/18 21:20 Neutrophils % 69.1 % (40.0-80.0) 09/18/18 21:20 Lymphocytes % 20.0 % (20.0-50.0) 09/18/18 21:20 Monocytes % 7.9 % (2.0-10.0) 09/18/18 21:20 Eosinophils % 3.0 % (0.0-5.0) 09/18/18 21:20 Basophils % 0.0 % (0.0-2.0) 09/18/18 21:20 PT 10.9 SECONDS (9.5-11.5) 09/18/18 21:20 INR 1.05 (0.5-1.4) 09/18/18 21:20 PTT (Actin FS) 27.4 SECONDS (26.0-38.0) 09/18/18 21:20 Sodium 141 mEq/L (136-145) 09/18/18 21:20 Potassium 4.3 mEq/L (3.5-5.1) 09/18/18 21:20 Chloride 108 mEq/L (98-107) H 09/18/18 21:20 Carbon Dioxide 28.3 mEq/L (21.0-31.0) 09/18/18 21:20 Anion Gap 9.0 (7.0-16.0) 09/18/18 21:20 BUN 22 mg/dL (7-25) 09/18/18 21:20 Creatinine 1.5 mg/dL (0.7-1.3) H 09/18/18 21:20 Est GFR ( Amer) TNP 09/18/18 21:20 Est GFR (Non-Af Amer) TNP 09/18/18 21:20 BUN/Creatinine Ratio 14.7 09/18/18 21:20 Glucose 85 mg/dL (70-105) 09/18/18 21:20 POC Glucose 97 MG/DL (70 - 105) 09/23/18 06:09 Calcium 8.8 mg/dL (8.6-10.3) 09/18/18 21:20 Total Bilirubin 0.3 mg/dL (0.3-1.0) 09/18/18 21:20 AST 30 U/L (13-39) 09/18/18 21:20 ALT 18 U/L (7-52) 09/18/18 21:20 Alkaline Phosphatase 78 U/L (34-104) 09/18/18 21:20 Troponin I 0.02 ng/mL (0.01-0.05) 09/18/18 21:20 B-Natriuretic Peptide 83.0 pg/mL (5.0-100.0) 09/18/18 21:20 Total Protein 6.6 gm/dL (6.0-8.3) 09/18/18 21:20 Albumin 3.6 gm/dL (4.2-5.5) L 09/18/18 21:20 Globulin 3.0 gm/dL 09/18/18 21:20 Albumin/Globulin Ratio 1.2 (1.0-1.8) 09/18/18 21:20 Triglycerides 56 mg/dL (<150) 09/18/18 21:20 Cholesterol 130 mg/dL (<200) 09/18/18 21:20 LDL Cholesterol Direct 83 mg/dL (75-193) 09/18/18 21:20 HDL Cholesterol 47 mg/dL (23-92) 09/18/18 21:20 TSH 1.45 uIU/ml (0.34-5.60) 09/18/18 21:20 Urine Source RANDOM 09/18/18 22:15 Urine Color YELLOW 09/18/18 22:15 Urine Clarity CLEAR (CLEAR) 09/18/18 22:15 Urine pH 6.0 (4.6 - 8.0) 09/18/18 22:15 Ur Specific [place] >= 1.030 (1.005-1.030) 09/18/18 22:15 Urine Protein >=300 mg/dL (NEGATIVE) 09/18/18 22:15 Urine Glucose (UA) NEGATIVE mg/dL (NEGATIVE) 09/18/18 22:15 Urine Ketones NEGATIVE mg/dL (NEGATIVE) 09/18/18 22:15 Urine Blood TRACE (NEGATIVE) 09/18/18 22:15 Urine Nitrate NEGATIVE (NEGATIVE) 09/18/18 22:15 Urine Bilirubin NEGATIVE (NEGATIVE) 09/18/18 22:15 Urine Urobilinogen 0.2 E.U./dL (0.2 - 1.0) 09/18/18 22:15 Ur Leukocyte Esterase NEGATIVE (NEGATIVE) 09/18/18 22:15 Urine RBC 2-5 /hpf (0-5) H 09/18/18 22:15 Urine WBC 0-2 /hpf (0-5) 09/18/18 22:15 Ur Epithelial Cells NONE SEEN /lpf (FEW) 09/18/18 22:15 Urine Bacteria 1+ /hpf (NONE SEEN) H 09/18/18 22:15 RPR NONREACTIVE (NONREACTIVE) 09/18/18 21:20 - Physical Exam Vitals and I&O: Vital Signs Temp 97.6 F 09/23/18 06:05 Pulse 69 09/23/18 06:05 Resp 18 09/23/18 06:05 BP 157/79 09/23/18 06:05 Pulse Ox 96 09/23/18 06:05 Intake & Output 09/22/18 09/23/18 09/23/18 18:59 06:59 18:59 Intake Total 1200 Balance 1200 Intake: Oral 1200 Other: # Bowel Movements 1 Active Medications: Current Medications Acetaminophen (Tylenol) 650 mg PO Q4HR PRN PRN Reason: Mild Pain / Temp above 100 Stop: 11/18/18 00:48 Last Admin: 09/20/18 14:13 Dose: 650 mg Aripiprazole (Abilify) 5 mg PO DAILY [facility]; Protocol Stop: 11/18/18 08:59 Last Admin: 09/23/18 09:13 Dose: 5 mg Cholecalciferol (Vitamin D3) 1,000 iu PO DAILY [facility] Stop: 11/18/18 08:59 Last Admin: 09/23/18 09:13 Dose: 1,000 iu Donepezil HCl (Aricept) 10 mg PO HS [facility] Stop: 11/18/18 20:59 Last Admin: 09/22/18 21:15 Dose: 10 mg Glucagon (Glucagen) 1 mg IM PRN PRN PRN Reason: Blood Glucose less than 70 Stop: 11/18/18 07:36 Insulin Human Lispro (Humalog Insulin Sliding Scale) 0 units SUBQ ACHS [facility]; Protocol Stop: 11/18/18 11:29 Last Admin: 09/23/18 06:36 Dose: Not Given Lorazepam (Ativan) 0.5 mg PO Q4HR PRN; Protocol PRN Reason: Anxiety Stop: 10/19/18 00:48 Last Admin: 09/22/18 16:42 Dose: 0.5 mg Magnesium Hydroxide (Milk Of Magnesia) 30 ml PO HS PRN PRN Reason: Constipation Stop: 11/18/18 07:36 Memantine (Namenda) 10 mg PO BID [facility] Stop: 11/18/18 08:59 Last Admin: 09/23/18 09:13 Dose: 10 mg Mupirocin (Bactroban Oint) 1 appl NS BID [facility] Stop: 09/25/18 17:01 Last Admin: 09/23/18 09:14 Dose: 1 appl Trazodone HCl (Desyrel) 50 mg PO HS [facility]; Protocol Stop: 11/20/18 20:59 Last Admin: 09/22/18 21:15 Dose: 50 mg General: alert, NAD HEENT: NC/AT, PERRLA Neck: Supple, No JVD Lungs: CTAB Cardiovascular: RRR, Normal S1, Normal S2 Abdomen: soft, non-tender, non-distended Extremities: excoriation Neurological: alert, other (confused ) Internal Medicine Assmt/Plan - Assessment Assessment: Agitation HTN DM2 Asthma COPD Dyslipidemia GERD - Plan Plan: Continue current treatment plan. Monitor Labs.Continue current medications Continue to monitor VS Monitor Diet/Nutritional support. Psych management per Psychiatry. Pain Management. PT/OT prn Safety precaution, Fall precaution, frequent nursing round. Supportive care. Continue collaborating with consulting specialists, case management and nursing team. Nutritional Asmnt/Malnutr-PDOC - Dietary Evaluation Malnutrition Findings (Please click <Entered> for more info): Nutritional Asmnt/Malnutrition Start: 09/21/18 15: 14 Text: Status: Complete Freq: Protocol: Document 09/21/18 15:14 MARCELLE (Rec: 09/21/18 15:17 MARCELLE [email or web address]) Nutritional Asmnt/Malnutrition Patient General Information Nutritional Screening Moderate Risk Diagnosis Psychosis Pertinent Medical Hx/Surgical Hx HTN, DM, Asthma/COPD, Dyslipidemia, PUD/GERD, Muscle weakness Subjective Information Pt is a 83-year-old [facility] 09/[facility] c/o agitation. Per Meal/ Nutrition Activity Record, Pt PO intake 67% meals on 09/20 to meet 85% kcal and 100+% Pro needs. HT: 52 WT: 145 LB (65.91 kg) ADJ BW: 59.12 kg BMI: 26.52 (Overweight) GI: WNL, Soft, Flat, Non- Tender BM: 09/21 x1 I/O: 1080/Not Noted Skin: WNL, Intact Ronald: 19 Diet Order: CCHO 60 GM, Cardiac, Renal, Chopped Estimated Energy Needs: (Renal /CKD 1-3, CBW) 4933-9280 kcals (28-35 kcals/ kg) 49-52g Pro (0.75-0.8/kg) 8290-9300 ml (35-40 ml/kg)/Per MD Pt is eating 67% of meals Per Meal/Nutrition Activity Record . Dietary is currently providing an estimated 2333kcals and 84 gm Pro, per Pt PO intake this is providing an estimated 1563 kcals and 56gm Pro to meet 85% kcal and 100+% Pro needs- adequate. Current Diet Order/ Nutrition Support CCHO 60 GM, Cardiac, Renal, Chopped Pertinent Medications Vitamin D3, Glucagen (PRN), INS-SS, MOM (PRN) Pertinent Labs 09/18: Hgb/Hct 11.2/32.7 Nutritional Hx/Data Height 5 ft 2 in Height (Calculated Centimeters) 157.5 Current Weight (lbs) 145 lb Weight (Calculated Kilograms) 65.8 Weight (Calculated Grams) 57935.9 [place] Body Weight 54.6 kg % [place] Body Weight 121 Body Mass Index (BMI) 26.5 Weight Status Overweight GI Symptoms GI Symptoms None Last BM 09/21 x1 Skin Integrity/Comment: WNL, Intact Ronald: 19 Current %PO Fair (50-74%) Estimated Nutritional Goals BEE in Kcals: Using Current wt Calories/Kcals/Kg 28-35 Kcals Calculated 4709-3950 Protein: Using Current wt Protein g/k.75-0.8 Protein Calculated 49-52 Fluid: ml 6244-4016 ml (35-40 ml/kg)/Per MD Nutritional Problem 1. Problem Problem N/A Etiology N/A Signs/Symptoms: N/A Malnutrition Related to Morbid Obesity Malnutrition related to morbid obesity No Intervention/Recommendation Comments 1.Continue with CCHO 60 GM, Cardiac, Renal, chopped diet as ordered. Expected Outcomes/Goals Expected Outcomes/Goals 1.PO intake to continue to meet 75% of nutritional needs. 2.Monitor PO intake, wt, nutrition related labs, and skin integrity. 3.F/U as low risk in 7 days,
--- NOTE | 2018-09-23 14:40 | Progress Notes ---
DATE: 09/23/2018 Case was discussed with staff of the patient, reviewed records. The patient continue his Divehi speaking, we talked through a hide salter. Continues to be irritable, easily agitated, suspicious, paranoid, continues to be unpredictable and impulsive, isolating himself. He is sleeping better, eating better. No side effects with the medication, no sedation, no nausea. She tolerated the Abilify. No extrapyramidal symptoms. We will continue outpatient group therapy, milieu therapy, adjust medication as needed. [facility]# [id number]
[2018-09-24] MEDS: INSULIN LISPRO SLIDING SCALE 100 UNITS/ML UNIT SUBQ SCH (06:49)
--- NOTE | 2018-09-24 10:55 | Discharge Summary ---
DATE OF DISCHARGE: 09/24/2018 AGE: 83. SEX: Male. PHYSICIAN: Dr. Velasquez FINAL DIAGNOSES: PRIMARY DIAGNOSIS: Unspecified psychosis. SECONDARY DIAGNOSES: Dementia, moderate to severe, with psychotic features and behavioral disturbances. REASON FOR HOSPITALIZATION: The patient was admitted to the hospital from [facility] because of increased agitation and because of inability to follow directions and the patient also was in angry and in irritable mood. HOSPITAL COURSE: The patient continued to be agitated and in irritable mood. The patient also was angry and aggressive. The patient is Cymraes speaking and I got help from staff with translation. The patient was restless and he was uncooperative with his treatment in the beginning of hospitalization, but later on the patient was more cooperative. The patient was given Abilify at a dose of 5 mg every day. The patient was not agitated. The patient was accepted back to [facility]. Physical exam of the patient showed no major medical problems for the patient. Blood workup was also basically within normal. AFTER DISCHARGE PLANS: The patient discharged from the hospital with plans to continue his treatment as an outpatient. EXPECTED OUTCOME AFTER DISCHARGE: Fair if the patient continues with his outpatient treatment and follow up with discharge plans. [facility]# [id number]
--- NOTE | 2018-09-24 13:12 | Internal Medicine Prog Note ---
Internal Medicine Subjective - Subjective Service Date: 09/24/18 Patient seen and examined:: with staff Patient is:: awake, in bed, other (pt is confused but less restless ) Patient Complaints of:: other (psychosis.) Per staff patient has:: no adverse event, no episodes of fall, tolerating meds Internal Medicine Objective - Results Result Diagrams: 09/18/18 21:20 09/18/18 21: Recent Labs: Laboratory Last Values WBC 9.8 Th/cmm (4.8-10.8) 09/18/18 21:20 RBC 3.90 Mil/cmm (3.80-5.80) 09/18/18 21:20 Hgb 11.2 gm/dL (12-16) L 09/18/18 21:20 Hct 32.7 % (41.0-60) L 09/18/18 21:20 MCV 83.8 fl (80-99) 09/18/18 21:20 MCH 28.6 pg (27.0-31.0) 09/18/18 21: MCHC Differential 34.1 pg (28.0-36.0) 09/18/18 21:20 RDW 14.4 % (11.5-20.0) 09/18/18 21:20 Plt Count 225 Th/cmm (150-400) 09/18/18 21:20 MPV 7.8 fl 09/18/18 21:20 Neutrophils % 69.1 % (40.0-80.0) 09/18/18 21:20 Lymphocytes % 20.0 % (20.0-50.0) 09/18/18 21: Monocytes % 7.9 % (2.0-10.0) 09/18/18 21:20 Eosinophils % 3.0 % (0.0-5.0) 09/18/18 21: Basophils % 0.0 % (0.0-2.0) 09/18/18 21:20 PT 10.9 SECONDS (9.5-11.5) 09/18/18 21:20 INR 1.05 (0.5-1.4) 09/18/18 21:20 PTT (Actin FS) 27.4 SECONDS (26.0-38.0) 09/18/18 21:20 Sodium 141 mEq/L (136-145) 09/18/18 21:20 Potassium 4.3 mEq/L (3.5-5.1) 09/18/18 21:20 Chloride 108 mEq/L (98-107) H 09/18/18 21:20 Carbon Dioxide 28.3 mEq/L (21.0-31.0) 09/18/18 21:20 Anion Gap 9.0 (7.0-16.0) 09/18/18 21:20 BUN 22 mg/dL (7-25) 09/18/18 21:20 Creatinine 1.5 mg/dL (0.7-1.3) H 09/18/18 21:20 Est GFR ( Amer) TNP 09/18/18 21:20 Est GFR (Non-Af Amer) TNP 09/18/18 21:20 BUN/Creatinine Ratio 14.7 09/18/18 21:20 Glucose 85 mg/dL (70-105) 09/18/18 21:20 POC Glucose 114 MG/DL (70 - 105) H 09/24/18 06:29 Calcium 8.8 mg/dL (8.6-10.3) 09/18/18 21:20 Total Bilirubin 0.3 mg/dL (0.3-1.0) 09/18/18 21:20 AST 30 U/L (13-39) 09/18/18 21:20 ALT 18 U/L (7-52) 09/18/18 21:20 Alkaline Phosphatase 78 U/L (34-104) 09/18/18 21:20 Troponin I 0.02 ng/mL (0.01-0.05) 09/18/18 21:20 B-Natriuretic Peptide 83.0 pg/mL (5.0-100.0) 09/18/18 21:20 Total Protein 6.6 gm/dL (6.0-8.3) 09/18/18 21:20 Albumin 3.6 gm/dL (4.2-5.5) L 09/18/18 21:20 Globulin 3.0 gm/dL 09/18/18 21:20 Albumin/Globulin Ratio 1.2 (1.0-1.8) 09/18/18 21:20 Triglycerides 56 mg/dL (<150) 09/18/18 21:20 Cholesterol 130 mg/dL (<200) 09/18/18 21:20 LDL Cholesterol Direct 83 mg/dL (75-193) 09/18/18 21:20 HDL Cholesterol 47 mg/dL (23-92) 09/18/18 21:20 TSH 1.45 uIU/ml (0.34-5.60) 09/18/18 21:20 Urine Source RANDOM 09/18/18 22:15 Urine Color YELLOW 09/18/18 22:15 Urine Clarity CLEAR (CLEAR) 09/18/18 22:15 Urine pH 6.0 (4.6 - 8.0) 09/18/18 22:15 Ur Specific [place] >= 1.030 (1.005-1.030) 09/18/18 22:15 Urine Protein >=300 mg/dL (NEGATIVE) 09/18/18 22:15 Urine Glucose (UA) NEGATIVE mg/dL (NEGATIVE) 09/18/18 22:15 Urine Ketones NEGATIVE mg/dL (NEGATIVE) 09/18/18 22:15 Urine Blood TRACE (NEGATIVE) 09/18/18 22:15 Urine Nitrate NEGATIVE (NEGATIVE) 09/18/18 22:15 Urine Bilirubin NEGATIVE (NEGATIVE) 09/18/18 22:15 Urine Urobilinogen 0.2 E.U./dL (0.2 - 1.0) 09/18/18 22:15 Ur Leukocyte Esterase NEGATIVE (NEGATIVE) 09/18/18 22:15 Urine RBC 2-5 /hpf (0-5) H 09/18/18 22:15 Urine WBC 0-2 /hpf (0-5) 09/18/18 22:15 Ur Epithelial Cells NONE SEEN /lpf (FEW) 09/18/18 22:15 Urine Bacteria 1+ /hpf (NONE SEEN) H 09/18/18 22:15 RPR NONREACTIVE (NONREACTIVE) 09/18/18 21:20 - Physical Exam Vitals and I&O: Vital Signs Temp 98 F 09/24/18 06:16 Pulse 74 09/24/18 06:16 Resp 19 09/24/18 06:16 BP 148/77 09/24/18 06:16 Pulse Ox 97 09/24/18 06:16 Intake & Output 09/23/18 09/24/18 09/24/18 18:59 06:59 18:59 Intake Total 850 240 Balance 850 240 Intake: Oral 850 240 Other: # Voids 3 3 # Bowel Movements 1 0 Active Medications: Current Medications Acetaminophen (Tylenol) 650 mg PO Q4HR PRN PRN Reason: Mild Pain / Temp above 100 Stop: 11/18/18 00:48 Last Admin: 09/20/18 14:13 Dose: 650 mg Aripiprazole (Abilify) 5 mg PO DAILY [facility]; Protocol Stop: 11/18/18 08:59 Last Admin: 09/24/18 08:58 Dose: 5 mg Cholecalciferol (Vitamin D3) 1,000 iu PO DAILY [facility] Stop: 11/18/18 08:59 Last Admin: 09/24/18 08:58 Dose: 1,000 iu Donepezil HCl (Aricept) 10 mg PO HS [facility] Stop: 11/18/18 20:59 Last Admin: 09/23/18 21:40 Dose: 10 mg Glucagon (Glucagen) 1 mg IM PRN PRN PRN Reason: Blood Glucose less than 70 Stop: 11/18/18 07:36 Insulin Human Lispro (Humalog Insulin Sliding Scale) 0 units SUBQ [facility]; Protocol Stop: 11/18/18 11:29 Last Admin: 09/24/18 06:49 Dose: Not Given Lorazepam (Ativan) 0.5 mg PO Q4HR PRN; Protocol PRN Reason: Anxiety Stop: 10/19/18 00:48 Last Admin: 09/22/18 16:42 Dose: 0.5 mg Magnesium Hydroxide (Milk Of Magnesia) 30 ml PO HS PRN PRN Reason: Constipation Stop: 11/18/18 07:36 Memantine (Namenda) 10 mg PO BID [facility] Stop: 11/18/18 08:59 Last Admin: 09/24/18 08:58 Dose: 10 mg Mupirocin (Bactroban Oint) 1 appl NS BID [facility] Stop: 09/25/18 17:01 Last Admin: 09/24/18 08:58 Dose: 1 appl Trazodone HCl (Desyrel) 50 mg PO HS [facility]; Protocol Stop: 11/20/18 20:59 Last Admin: 09/23/18 21:40 Dose: 50 mg Physical Exam: Patient is less agitated. General: alert, NAD HEENT: NC/AT, PERRLA Neck: Supple, No JVD Lungs: CTAB Cardiovascular: RRR, Normal S1, Normal S2 Abdomen: soft, non-tender, non-distended Extremities: excoriation Neurological: alert, other (confused ) Internal Medicine Assmt/Plan - Assessment Assessment: agitation htn dm2 asthma copd dyslipidemia gerd - Plan Plan: Continuation of care. Monitor Labs. Continue present meds as directed. Monitor Diet/Nutritional support. Psych management per Psych. PT/OT prn. Safety precaution. Supportive care. Fall precaution, frequent nursing rounds, and as needed restraints to prevent fall. Continue collaborating with consulting specialists, case management and nursing team. Will Monitor patient and continue present care management. Nutritional Asmnt/Malnutr-PDOC - Dietary Evaluation Malnutrition Findings (Please click <Entered> for more info): Nutritional Asmnt/Malnutrition Start: 09/21/18 15: 14 Text: Status: Complete Freq: Protocol: Document 09/21/18 15:14 MARCELLE (Rec: 09/21/18 15:17 MARCELLE [email or web address]) Nutritional Asmnt/Malnutrition Patient General Information Nutritional Screening Moderate Risk Diagnosis Psychosis Pertinent Medical Hx/Surgical Hx HTN, DM, Asthma/COPD, Dyslipidemia, PUD/GERD, Muscle weakness Subjective Information Pt is a 83-year-old male from [facility] admitted on 09/18 c/o agitation. Per Meal/ Nutrition Activity Record, Pt PO intake 67% meals on 09/20 to meet 85% kcal and 100+% Pro needs. HT: 52 WT: 145 LB (65.91 kg) ADJ BW: 59.12 kg BMI: 26.52 (Overweight) GI: WNL, Soft, Flat, Non- Tender BM: 09/21 x1 I/O: 1080/Not Noted Skin: WNL, Intact Ronald: 19 Diet Order: CCHO 60 GM, Cardiac, Renal, Chopped Estimated Energy Needs: (Renal /CKD 1-3, CBW) 1645-9104 kcals (28-35 kcals/ kg) 49-52g Pro (0.75-0.8/kg) 3306-9307 ml (35-40 ml/kg)/Per MD Pt is eating 67% of meals Per Meal/Nutrition Activity Record . Dietary is currently providing an estimated 2333kcals and 84 gm Pro, per Pt PO intake this is providing an estimated 1563 kcals and 56gm Pro to meet 85% kcal and 100+% Pro needs- adequate. Current Diet Order/ Nutrition Support CCHO 60 GM, Cardiac, Renal, Chopped Pertinent Medications Vitamin D3, Glucagen (PRN), INS-SS, MOM (PRN) Pertinent Labs 09/18: Hgb/Hct 11.2/32.7 Nutritional Hx/Data Height 1.57 m Height (Calculated Centimeters) 157.5 Current Weight (lbs) 65.771 kg Weight (Calculated Kilograms) 65.8 Weight (Calculated Grams) 96756.9 [place] Body Weight 54.6 kg % [place] Body Weight 121 Body Mass Index (BMI) 26.5 Weight Status Overweight GI Symptoms GI Symptoms None Last BM 09/21 x1 Skin Integrity/Comment: WNL, Intact Ronald: 19 Current %PO Fair (50-74%) Estimated Nutritional Goals BEE in Kcals: Using Current wt Calories/Kcals/Kg 28-35 Kcals Calculated 5399-7877 Protein: Using Current wt Protein g/k.75-0.8 Protein Calculated 49-52 Fluid: ml 5823-8894 ml (35-40 ml/kg)/Per MD Nutritional Problem 1. Problem Problem N/A Etiology N/A Signs/Symptoms: N/A Malnutrition Related to Morbid Obesity Malnutrition related to morbid obesity No Intervention/Recommendation Comments 1.Continue with CCHO 60 GM, Cardiac, Renal, chopped diet as ordered. Expected Outcomes/Goals Expected Outcomes/Goals 1.PO intake to continue to meet 75% of nutritional needs. 2.Monitor PO intake, wt, nutrition related labs, and skin integrity. 3.F/U as low risk in 7 days,
== END 2018-09-24 13:10 | DRG 885 ==
LOC: ER 20:25 → GERO 22:00
PROVIDERS: ADMIT Psychiatry & Neurology Psychiatry; ATTEND Psychiatry & Neurology Psychiatry
DX: F29 Unspecified psychosis not due to a substance or known physiological condition (principal); F03.91 Unspecified dementia, unspecified severity, with behavioral disturbance; I10 Essential (primary) hypertension; E11.9 Type 2 diabetes mellitus without complications; E78.5 Hyperlipidemia, unspecified; K21.9 Gastro-esophageal reflux disease without esophagitis; J44.9 Chronic obstructive pulmonary disease, unspecified; F20.9 Schizophrenia, unspecified; F31.9 Bipolar disorder, unspecified; Z79.4 Long term (current) use of insulin
CPT/HCPCS: 36415-UA; 71045-TC; 80053-TC; 80061-TC; 81001-TC; 82948-90; 83036-90; 83880-TC; 84443-TC; 84484-TC; 85025-TC; 85610-TC; 86592-TC; 93005; J1815; Z7610